=== PATIENT | male | born 1955 | race African-American/Black ===

== ENCOUNTER 2016-06-29 17:05 | Inpatient (IN) | payer MEDICARE, OTHER ==
[~2016-06-29] VITALS: Ht 188 cm; Wt 88.1 kg
[~2016-06-29 17:05] MED LIST: AMIT25TA PO; CYCL5TAB PO; DICY20TA3 PO; HYDR-971 PO; Ipratropium/Albuterol Sulfate NEB; METH10TA2 PO; MONT10TA6 PO; ONDA4TAB10 PO; ONDA4TAB7 PO; OXYC10TA32 PO; OXYC20TA34 PO; OXYC30TA PO; POLY17PO5 PO; PRED-220 PO; PREG225C PO; TEMA30CA PO; TIZA4CAP3 PO; TRAZ100T12 PO; TRAZ150T55 PO; trazodone PO
[2016-06-29] MEDS ORDERED: HYDROMORPHONE 2 MG/ML VIAL. IM ONE (19:45)
[2016-06-29] MEDS ORDERED: ORPHENADRINE CITRATE 60 MG/2 ML VIAL. IM ONE (19:45)
[2016-06-29] MEDS ORDERED: DIAZEPAM 10 MG/2 ML DISP.SYRIN. IV ONE (20:45)
[2016-06-29] MEDS ORDERED: OXYCODONE/APAP 5/325 TABLET. PO ONE (20:45)
[2016-06-29] MEDS ORDERED: ONDANSETRON PF 4 MG/2 ML VIAL. IV PRN (20:45)
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
--- NOTE | 2016-06-29 21:52 | ACF ---
Admission Forms Criteria BACK PAIN Clinical Indications for Admission to Inpatient Care (Place 'X' for any and all applicable criteria): Admission is indicated for ANY ONE of the following (1)(2)(3)(4)(5)(6): [X]I. Inpatient admission required rather than observation care (Also use Back Pain: Observation Care as appropriate) because of ANY ONE of the following [X]a) Severe pain requiring acute inpatient management [ ]b) Immediate inpatient surgery [ ]c) Other condition, treatment or monitoring requiring inpatient admission [ ]II. Spine fracture with significant damage or threat of damage to vertebral column or spinal cord [ ]III. Progressive or severe neurologic deficit [ ]IV. Suspected spinal infection (e.g., epidural abscess, vertebral osteomyelitis)(10) [ ]V. Suspected cause requires inpatient treatment (eg, aortic dissection) [ ]. Cauda equina syndrome as indicated by ANY ONE of the following (9): [ ]a) Bowel dysfunction [ ]b) Bladder dysfunction [ ]c) Saddle anesthesia [ ]d) Neurologic abnormality suggesting cauda equina impingement Extended stay beyond goal length of stay may be needed for (3)(25): [ ]a) Spinal cord compression from stenosis, disk, or tumor (8)(9) [ ]b) Traumatic or pathologic vertebral fracture (33) [ ]c) Vertebral infection(10) [ ]d) Severe pain that is difficult to control [ ]e) Older patients(65 years or older) The original [employer] content created by [employer] has been revised. The portions of the content which have been revised are identified through the use of italic text or in bold, and [employer] has neither reviewed nor approved the modified material. All other unmodified content is copyright [employer]. Please see references footnoted in the original [facility] edition 2016 Admission Criteria Met?: Yes YAMILEX CISNEROS Jun 29, 2016 21:52
[2016-06-29 22:34] VITALS: BP 126/85
[2016-06-29 22:35] VITALS: BP 126/85
[2016-06-29] MEDS: IV NORMAL SALINE 1000ML BAG 1,000 ML IV SCH (23:27)
[2016-06-29] MEDS: FENTANYL PF 100 MCG/2 ML VIAL. IV PRN (23:29)
[2016-06-30] MEDS: FENTANYL PF 100 MCG/2 ML VIAL. IV PRN ×7 (01:01→16:40)
[2016-06-30 02:44] VITALS: BP 112/68
[2016-06-30] MEDS: IV NORMAL SALINE 1000ML BAG 1,000 ML IV SCH ×3 (06:07→16:44)
[2016-06-30 07:00] VITALS: BP 125/77
[2016-06-30 07:04] LABS: BASO % 1 % (0-3); EOS % 2 % (0-3); HEMATOCRIT 39.8 % (39.0-53.0); HEMOGLOBIN 13.1 g/dL (13.0-17.5); LYMPH # 1.7 x10^3/uL (1.0-4.8); LYMPH % 21 % (24-48); MEAN CORPUSCULAR HEMOGLOBIN 34 pg (25-35); MEAN CORPUSCULAR HGB CONC 33 g/dL (31-37); MEAN CORPUSCULAR VOLUME 105 fL (79-100); MONO % 9 % (0-9); NEUT % 68 % (31-73); PLATELET COUNT 202 x10^3/uL (140-400); RED CELL DISTRIBUTION WIDTH 15.8 % (11.5-14.5); WHITE BLOOD COUNT 8.2 x10^3/uL (4.0-11.0)
[2016-06-30 07:31] LABS: ALBUMIN 2.7 g/dL (3.4-5.0); ALBUMIN/GLOBULIN RATIO 0.9 (1.0-1.7); CALCIUM 8.3 mg/dL (8.5-10.1); CREATININE 0.8 mg/dL (0.7-1.3); GFR 119.7; POTASSIUM 3.6 mmol/L (3.5-5.1); TOTAL BILIRUBIN 0.4 mg/dL (0.2-1.0); TOTAL PROTEIN 5.8 g/dL (6.4-8.2)
--- NOTE | 2016-06-30 09:03 | RAD ---
Indication: Lifting injury, low back pain and pop. Pain worse with standing. Previous fractures. Technique: 3 views of the lumbosacral spine are submitted for review. Comparison is from March 24, 2016. Findings: New compression deformity is noted at T12, collapse anteriorly of 33% and posteriorly of 25%. There is no definite retropulsion. There may be an acute component. L1 vertebral body height is maintained. L2 fracture was present on prior study. There is an L3 compression deformity involving the superior endplate, probably new from March although without definite acute fracture line identified. L4 compression fracture is similar to prior. L5 vertebral body height is similar to prior. No malalignment is apparent. Impression: 1. New compression deformity at T12 and age-indeterminate compression deformity at L3 which also is probably new from prior exam. Consider MRI lumbar spine to include through T12 to evaluate for acuity.
[2016-06-30 10:42] VITALS: BP 122/78
--- NOTE | 2016-06-30 13:09 | RAD ---
CT of the lumbar spine without contrast, 06/30/2016: History: Back pain Noncontrast scans were obtained with multiplanar reconstructions produced. This exam is correlated with lumbar spine radiographs from 06/29/2016 and 03/24/2016. There is a transitional-type vertebra at the lumbosacral junction. For consistency in regards to the previous lumbar radiographs, this no be considered to be L5. Utilizing this numbering system there are absent ribs at T12. There is a mild anterior vertebral compression deformity at T12. Recent appearing fracture lines are seen. There are moderate degenerative changes involving the facet joints bilaterally at T11-12, incompletely delineated on these images. There is a superior endplate deformity at L3 which is new when compared to lumbar spine radiographs from 03/24/2016. Biconcave endplate deformities at L2 and moderate loss of height of the L4 vertebral body appear to be unchanged since 03/24/2016. Mild loss of height of the L5 vertebral body also appears to be chronic. At L1-2 there is minimal posterior annular bulging. The central spinal canal is well-preserved with only mild bilateral inferior foraminal narrowing. At L2-3 there is mild posterior disc bulging. There is mild posterior ligamentous thickening. The thecal sac measures 8mm in AP diameter at the midline. There is mild bilateral foraminal narrowing. At L3-4 there is moderate broad-based posterior disc bulging. There is moderate posterior ligamentous thickening related to mild facet joint arthropathy. The thecal sac narrows down to an AP diameter 7 mm at the midline. There is mild bilateral foraminal narrowing. At L4-5 there is mild posterior disc bulging. There is moderate posterior ligamentous thickening. There is borderline narrowing of the central spinal canal in a triangular configuration. There is mild inferior foraminal narrowing bilaterally. At L5-S1 there is minimal posterior annular bulging. There are moderate hypertrophic degenerative changes involving the facet joints. The central spinal canal is well-preserved. There is mild to moderate foraminal encroachment due to the spurring. IMPRESSION: 1. Multiple mild lumbar and lower thoracic vertebral compression fractures without extension of fracture fragments into the spinal canal. 2. The T12 and L3 vertebral compression fractures are recent, having developed since 03/24/2016. 3. Mild to moderate multilevel degenerative change as described above with mild associated central spinal stenosis at L2-3 and L3-4. PQRS Compliance Statement: One or more of the following individualized dose reduction techniques were utilized for this examination: 1. Automated exposure control 2. Adjustment of the mA and/or kV according to patient size 3. Use of iterative reconstruction technique
[2016-06-30] MEDS ORDERED: ONDANSETRON ODT 4 MG TAB.RAPDIS PO PRN (13:30)
[2016-06-30] MEDS: METHADONE 10 MG TABLET. PO SCH ×2 (14:25→20:55)
[2016-06-30] MEDS: DICYCLOMINE HCL 10 MG CAPSULE PO SCH ×2 (14:25→20:56)
[2016-06-30] MEDS: HYDROCODONE/APAP 5/325MG TABLET. PO PRN ×2 (14:26→21:01)
[2016-06-30 14:43] VITALS: BP 131/77
[2016-06-30] MEDS: IPRATRPIUM/ALBUTEROL 0.5/2.5MG 3 ML NEBU. NEB SCH ×2 (15:17→20:19)
[2016-06-30] MEDS: CYCLOBENZAPRINE 10 MG TABLET. PO PRN (16:40)
--- NOTE | 2016-06-30 17:24 | HP ---
ADMIT DATE: 06/30/2016 CHIEF COMPLAINT: Back pain. HISTORY OF PRESENT ILLNESS: The patient is a pleasant middle-aged male who has previous back injuries. He states he even had surgery by Dr. Osorio years ago, presents with back pain, while he was working, heard a pop. Imaging studies in the ER are showing multiple compression fractures. He has now been admitted. We are consulting Dr. Osorio. PAST MEDICAL HISTORY: Back surgeries and lumbar radiculopathy, chronic pain. ALLERGIES: ASPIRIN, MESALAMINE, AMBIEN AND BUDESONIDE. FAMILY HISTORY: Coronary artery disease. SOCIAL HISTORY: He works. He does not drink, smoke or take drugs. MEDICATIONS: Reviewed, please refer to the MRAD. REVIEW OF SYSTEMS: GENERAL: No history of weight change, weakness or fevers. SKIN: No bruising, hair changes or rashes. EYES: No blurred, double or loss of vision. NOSE AND THROAT: No history of nosebleeds, hoarseness or sore throat. HEART: No history of palpitations, chest pain or shortness of breath on exertion. LUNGS: Denies cough, hemoptysis, wheezing or shortness of breath. GASTROINTESTINAL: Denies changes in appetite, nausea, vomiting, diarrhea or constipation. GENITOURINARY: No history of frequency, urgency, hesitancy or nocturia. NEUROLOGIC: Denies history of numbness, tingling, tremor or weakness. PSYCHIATRIC: No history of panic, anxiety or depression. ENDOCRINE: No history of heat or cold intolerance, polyuria or polydipsia. EXTREMITIES: Denies muscle weakness, joint pain, pain on walking or stiffness. MUSCULOSKELETAL: He complains of back pain. PHYSICAL EXAMINATION: VITAL SIGNS: Temperature afebrile, pulse 67, respirations 20, blood pressure 122/78. GENERAL: He is alert, cooperative. HEART: Normal S1, S2. LUNGS: Clear. ABDOMEN: Soft. EXTREMITIES: No edema. SKIN: No rashes. PSYCHIATRIC: He is stable. VASCULAR: Good capillary refill. ENDOCRINE: No thyromegaly. LYMPHATICS: No cervical nodes. HEMATOPOIETIC: No bruising. NEUROLOGICAL: He has got straight leg test positive on the left, but is overall moving all extremities. ASSESSMENT AND PLAN: Compression fractures, acute on chronic. The patient has been admitted. We will give him p.r.n. narcotics. Continue his home meds, IV fluids. Consult Dr. Osorio. PT, OT. Repeat his labs. NISHANT BURGESS DO DR: BRENDA/dennis JOB#: [id number] / [id number]
[2016-06-30 19:00] VITALS: BP 134/75
[2016-06-30 22:42] VITALS: BP 121/59
[2016-06-30] MEDS: TEMAZEPAM 15 MG CAPSULE PO PRN (23:09)
[2016-07-01 02:39] VITALS: BP 136/81
[2016-07-01] MEDS: CYCLOBENZAPRINE 10 MG TABLET. PO PRN ×2 (03:03→11:26)
[2016-07-01] MEDS: HYDROCODONE/APAP 5/325MG TABLET. PO PRN ×2 (03:04→11:26)
[2016-07-01] MEDS: OXYCODONE IR 5 MG TABLET. PO PRN ×4 (03:42→23:33)
[2016-07-01 04:52] LABS: BASO # 0.1 x10^3/uL (0.0-0.2); BASO % 1 % (0-3); EOS % 2 % (0-3); HEMATOCRIT 40.9 % (39.0-53.0); HEMOGLOBIN 13.3 g/dL (13.0-17.5); LYMPH # 2.1 x10^3/uL (1.0-4.8); LYMPH % 24 % (24-48); MEAN CORPUSCULAR HEMOGLOBIN 34 pg (25-35); MEAN CORPUSCULAR HGB CONC 33 g/dL (31-37); MEAN CORPUSCULAR VOLUME 105 fL (79-100); MONO % 8 % (0-9); NEUT % 66 % (31-73); PLATELET COUNT 185 x10^3/uL (140-400); RED BLOOD COUNT 3.91 x10^6/uL (4.30-5.70); RED CELL DISTRIBUTION WIDTH 15.7 % (11.5-14.5); WHITE BLOOD COUNT 8.8 x10^3/uL (4.0-11.0)
[2016-07-01 05:17] LABS: CALCIUM 8.5 mg/dL (8.5-10.1); CREATININE 0.6 mg/dL (0.7-1.3); GFR 166.9; POTASSIUM 3.8 mmol/L (3.5-5.1)
[2016-07-01] MEDS: FENTANYL PF 100 MCG/2 ML VIAL. IV PRN ×3 (05:58→19:41)
[2016-07-01 07:00] VITALS: BP 141/64
[2016-07-01] MEDS: IPRATRPIUM/ALBUTEROL 0.5/2.5MG 3 ML NEBU. NEB SCH ×4 (07:49→20:34)
[2016-07-01] MEDS: DICYCLOMINE HCL 10 MG CAPSULE PO SCH ×3 (08:03→21:20)
[2016-07-01] MEDS: METHADONE 10 MG TABLET. PO SCH ×2 (08:04→14:59)
--- NOTE | 2016-07-01 10:29 | PDOC ---
PROGRESS NOTES Chief Complaint Chief Complaint Thoracic and Lumbar compression fractures History of Present Illness History of Present Illness No acute events overnight. Patient was able to stand and shower, he does report pain with standing. He continues to report numbness of his right toes. Sensation to LE is otherwise intact. Vitals Vitals Vital Signs Date Time Temp Pulse Resp B/P Pulse Ox O2 Delivery O2 Flow Rate FiO2 07/01/16 09:20 16 Room Air 07/01/16 07:49 96 07/01/16 07:00 99.4 56 141/64 99.4 Physical Exam General: Alert, Cooperative, No acute distress Heart: Regular rate, Normal S1, Normal S2 Lungs: Clear, Other (no wheezing) Abdomen: Soft, No tenderness Extremities: No cyanosis, No edema, Normal pulses, Other (Equal sensation and muscular strength of bilateral LE ) Skin: No breakdown, No significant lesion Labs LABS Laboratory Tests Test 07/01/16 04:32 White Blood Count 8.8x10^3/uL (4.0-11.0) Red Blood Count 3.91x10^6/uL (4.30-5.70) Hemoglobin 13.3g/dL (13.0-17.5) Hematocrit 40.9% (39.0-53.0) Mean Corpuscular Volume 105fL (79-100) Mean Corpuscular Hemoglobin 34pg (25-35) Mean Corpuscular Hemoglobin Concent 33g/dL (31-37) Red Cell Distribution Width 15.7% (11.5-14.5) Platelet Count 185x10^3/uL (140-400) Neutrophils (%) (Auto) 66% (31-73) Lymphocytes (%) (Auto) 24% (24-48) Monocytes (%) (Auto) 8% (0-9) Eosinophils (%) (Auto) 2% (0-3) Basophils (%) (Auto) 1% (0-3) Neutrophils # (Auto) 5.9x10^3uL (1.8-7.7) Lymphocytes # (Auto) 2.1x10^3/uL (1.0-4.8) Monocytes # (Auto) 0.7x10^3/uL (0.0-1.1) Eosinophils # (Auto) 0.1x10^3/uL (0.0-0.7) Basophils # (Auto) 0.1x10^3/uL (0.0-0.2) Sodium Level 141mmol/L (136-145) Potassium Level 3.8mmol/L (3.5-5.1) Chloride Level 106mmol/L (98-107) Carbon Dioxide Level 26mmol/L (21-32) Anion Gap 9 (6-14) Blood Urea Nitrogen 8mg/dL (8-26) Creatinine 0.6mg/dL (0.7-1.3) Estimated GFR (Cockcroft-Gault) 166.9 Glucose Level 110mg/dL (70-99) Calcium Level 8.5mg/dL (8.5-10.1) Review of Systems Review of Systems Denies chest pain and shortness of breath. Denies fever or chills. Back pain while standing. Reports numbness of right toes. Assessment and Plan Assessmemt and Plan Problems Medical Problems: (1) Intractable back pain Status: Acute ASSESSMENT: Acute on chronic thoracic and lumbar compression fractures COPD History of prostate cancer Anxiety PLAN: Awaiting neurosurgery evaluation Continue pain control Continue neuro checks to LE Neurosurgery has been consulted, their recommendations are appreciated PT/OT eval and treat Continue to monitor daily labs Problems: Comment Review of Relevant I have reviewed the following items jet (where applicable) has been applied. Labs Laboratory Tests Test 06/30/16 06:20 07/01/16 04:32 White Blood Count 8.2x10^3/uL (4.0-11.0) 8.8x10^3/uL (4.0-11.0) Red Blood Count 3.80x10^6/uL (4.30-5.70) 3.91x10^6/uL (4.30-5.70) Hemoglobin 13.1g/dL (13.0-17.5) 13.3g/dL (13.0-17.5) Hematocrit 39.8% (39.0-53.0) 40.9% (39.0-53.0) Mean Corpuscular Volume 105fL (79-100) 105fL (79-100) Mean Corpuscular Hemoglobin 34pg (25-35) 34pg (25-35) Mean Corpuscular Hemoglobin Concent 33g/dL (31-37) 33g/dL (31-37) Red Cell Distribution Width 15.8% (11.5-14.5) 15.7% (11.5-14.5) Platelet Count 202x10^3/uL (140-400) 185x10^3/uL (140-400) Neutrophils (%) (Auto) 68% (31-73) 66% (31-73) Lymphocytes (%) (Auto) 21% (24-48) 24% (24-48) Monocytes (%) (Auto) 9% (0-9) 8% (0-9) Eosinophils (%) (Auto) 2% (0-3) 2% (0-3) Basophils (%) (Auto) 1% (0-3) 1% (0-3) Neutrophils # (Auto) 5.5x10^3uL (1.8-7.7) 5.9x10^3uL (1.8-7.7) Lymphocytes # (Auto) 1.7x10^3/uL (1.0-4.8) 2.1x10^3/uL (1.0-4.8) Monocytes # (Auto) 0.8x10^3/uL (0.0-1.1) 0.7x10^3/uL (0.0-1.1) Eosinophils # (Auto) 0.1x10^3/uL (0.0-0.7) 0.1x10^3/uL (0.0-0.7) Basophils # (Auto) 0.0x10^3/uL (0.0-0.2) 0.1x10^3/uL (0.0-0.2) Sodium Level 143mmol/L (136-145) 141mmol/L (136-145) Potassium Level 3.6mmol/L (3.5-5.1) 3.8mmol/L (3.5-5.1) Chloride Level 108mmol/L (98-107) 106mmol/L (98-107) Carbon Dioxide Level 26mmol/L (21-32) 26mmol/L (21-32) Anion Gap 9 (6-14) 9 (6-14) Blood Urea Nitrogen 12mg/dL (8-26) 8mg/dL (8-26) Creatinine 0.8mg/dL (0.7-1.3) 0.6mg/dL (0.7-1.3) Estimated GFR (Cockcroft-Gault) 119.7 166.9 BUN/Creatinine Ratio 15 (6-20) Glucose Level 118mg/dL (70-99) 110mg/dL (70-99) Calcium Level 8.3mg/dL (8.5-10.1) 8.5mg/dL (8.5-10.1) Total Bilirubin 0.4mg/dL (0.2-1.0) Aspartate Amino Transf (AST/SGOT) 17U/L (15-37) Alanine Aminotransferase (ALT/SGPT) 21U/L (16-63) Alkaline Phosphatase 60U/L (46-116) Total Protein 5.8g/dL (6.4-8.2) Albumin 2.7g/dL (3.4-5.0) Albumin/Globulin Ratio 0.9 (1.0-1.7) Laboratory Tests Test 07/01/16 04:32 White Blood Count 8.8x10^3/uL (4.0-11.0) Red Blood Count 3.91x10^6/uL (4.30-5.70) Hemoglobin 13.3g/dL (13.0-17.5) Hematocrit 40.9% (39.0-53.0) Mean Corpuscular Volume 105fL (79-100) Mean Corpuscular Hemoglobin 34pg (25-35) Mean Corpuscular Hemoglobin Concent 33g/dL (31-37) Red Cell Distribution Width 15.7% (11.5-14.5) Platelet Count 185x10^3/uL (140-400) Neutrophils (%) (Auto) 66% (31-73) Lymphocytes (%) (Auto) 24% (24-48) Monocytes (%) (Auto) 8% (0-9) Eosinophils (%) (Auto) 2% (0-3) Basophils (%) (Auto) 1% (0-3) Neutrophils # (Auto) 5.9x10^3uL (1.8-7.7) Lymphocytes # (Auto) 2.1x10^3/uL (1.0-4.8) Monocytes # (Auto) 0.7x10^3/uL (0.0-1.1) Eosinophils # (Auto) 0.1x10^3/uL (0.0-0.7) Basophils # (Auto) 0.1x10^3/uL (0.0-0.2) Sodium Level 141mmol/L (136-145) Potassium Level 3.8mmol/L (3.5-5.1) Chloride Level 106mmol/L (98-107) Carbon Dioxide Level 26mmol/L (21-32) Anion Gap 9 (6-14) Blood Urea Nitrogen 8mg/dL (8-26) Creatinine 0.6mg/dL (0.7-1.3) Estimated GFR (Cockcroft-Gault) 166.9 Glucose Level 110mg/dL (70-99) Calcium Level 8.5mg/dL (8.5-10.1) Medications Current Medications Hydromorphone HCl (Dilaudid) 1 mg 1X ONCE IM Last administered on 06/29/16 19 :44; Start 06/29/16 at 19:45; Stop 06/29/16 at 19:46; Status DC Orphenadrine Citrate (Norflex) 60 mg 1X ONCE IM Last administered on 19:44; Start 06/29/16 at 19:45; Stop 06/29/16 at 19:46; Status DC Oxycodone/ Acetaminophen (Percocet 5/325) 2 tab 1X ONCE PO Last administered on 06/29/16 21:15; Start 06/29/16 at 20:45; Stop 06/29/16 at 20:46; Status DC Ondansetron HCl (Zofran) 4 mg PRN Q8HRS PRN IV NAUSEA/VOMITING Last administered on 06/29/16 21:14; Start 06/29/16 at 20:45; Stop 06/30/16 at 20:44 ; Status DC Fentanyl Citrate 50 mcg 50 mcg PRN Q1HR PRN IV PAIN Last administered on 16:40; Start 06/29/16 at 20:45; Stop 06/30/16 at 20:44; Status DC Sodium Chloride (Iv Sodium Chloride 0.9% 1000ml Bag) 1,000 ml @ 150 mls/hr Q6H40M IV Last administered on 06/30/16 16:44; Start 06/29/16 at 20:42; Stop 06/30/16 at 20:41; Status DC Diazepam (Valium) 5 mg 1X ONCE IV Last administered on 06/29/16 21:15; Start 06/29/16 at 20:45; Stop 06/29/16 at 20:47; Status DC Acetaminophen/ Hydrocodone Bitart (Lortab 5/325) 1 tab PRN Q6HRS PRN PO PAIN Last administered on 07/01/16 03:04; Start 06/30/16 at 13:30 Methadone HCl (Dolophine) 10 mg TID PO Last administered on 07/01/16 08:04; Start 06/30/16 at 14:00 Ondansetron HCl (Zofran Odt) 4 mg PRN Q8HRS PRN PO NAUSEA/VOMITING; Start 06/30 at 13:30 Oxycodone HCl (Roxicodone) 10 mg PRN Q8HRS PRN PO PAIN Last administered on 09:20; Start 06/30/16 at 13:30 Cyclobenzaprine HCl (Flexeril) 5 mg PRN TID PRN PO MUSCLE SPASMS Last administered on 07/01/16 03:03; Start 06/30/16 at 13:30 Dicyclomine HCl (Bentyl) 20 mg TID PO Last administered on 07/01/16 08:03; Start 06/30/16 at 14:00 Albuterol/ Ipratropium (Duoneb) 3 ml RTQID NEB Last administered on 07/01/16 07:49; Start 06/30/16 at 16:00 Temazepam (Restoril) 15 mg PRN QHS PRN PO INSOMNIA Last administered on 23:09; Start 06/30/16 at 23:00 Fentanyl Citrate (Fentanyl 2ml Vial) 50 mcg PRN Q1HR PRN IV SEVERE PAIN Last administered on 07/01/16 08:04; Start 07/01/16 at 05:45 Active Scripts Active Cyclobenzaprine Hcl 5 Mg Tablet 1 Tab PO TID PRN Timewell 5-325 Tablet (Acetaminophen/Hydrocodone Bitart) 1 Each Tablet 1 Tab PO PRN Q6HRS PRN [Ipratropium/Albuterol Sulfate] 3 ML Nebu 3 Ml NEB RTQID Reported Methadone Hcl 10 Mg Tablet 10 Mg PO TID Zofran Odt (Ondansetron) 4 Mg Tab.rapdis 4 Mg PO PRN Q8HRS PRN Dicyclomine Hcl 20 Mg Tablet 20 Mg PO TID Oxycodone Hcl 30 Mg Tablet 10 Mg PO PRN Q8HRS Vitals/I & O Vital Sign - Last 24 Hours 06/30/16 06/30/16 06/30/16 06/30/16 10:42 11:32 14:26 14:43 Temp 98.0 97.9 98.0 97.9 Pulse 76 77 Resp 20 20 B/P 122/78 131/77 Pulse Ox 97 97 97 99 O2 Delivery Room Air Room Air Room Air Room Air 06/30/16 06/30/16 06/30/16 06/30/16 15:21 15:26 16:40 17:11 Pulse Ox 98 98 98 98 O2 Delivery Room Air Room Air Room Air 06/30/16 06/30/16 06/30/16 06/30/16 19:00 20:23 20:30 21:01 Temp 97.5 97.5 Pulse 75 Resp 18 20 B/P 134/75 Pulse Ox 98 98 94 O2 Delivery Room Air Room Air Room Air Room Air 06/30/16 06/30/16 07/01/16 07/01/16 22:30 22:42 02:39 03:04 Temp 98.5 97.9 98.5 97.9 Pulse 81 77 Resp 20 18 18 20 B/P 121/59 136/81 Pulse Ox 98 98 94 O2 Delivery Room Air Room Air Room Air Room Air 07/01/16 07/01/16 07/01/16 07/01/16 03:42 04:30 05:58 07:00 Temp 99.4 99.4 Pulse 56 Resp 20 20 20 16 B/P 141/64 Pulse Ox 94 94 95 O2 Delivery Room Air Room Air Room Air 07/01/16 07/01/16 07/01/16 07/01/16 07:49 08:00 08:04 08:34 Resp 16 16 Pulse Ox 96 O2 Delivery Room Air Room Air Room Air Room Air 07/01/16 09:20 Resp 16 O2 Delivery Room Air Intake and Output 06/30/16 06/30/16 07/01/16 15:00 23:00 07:00 Intake Total 400 ml 180 ml 1100 ml Output Total 650 ml 250 ml 600 ml Balance -250 ml -70 ml 500 ml NISHANT BURGESS III DO Jul 01, 2016 10:29
[2016-07-01 10:51] VITALS: BP 134/80
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
[2016-07-01 15:01] VITALS: BP 141/80
--- NOTE | 2016-07-01 15:22 | PDOC ---
Provider Note Provider Note IR Note: Asked by Dr Hilliard to consider vertebral augmentation---thank you Edwin is 60 YO male admitted with severe LBP, associated with minor exertion and an audible pop. He has severe pain standing and is unable to ambulate due to pain. He has no symptoms of myelopathy. He is tender to palpation over upper and mid L-spine Imaging: [facility] CT L-spine done yesterday revealed interval appearance of T12 and L3 fractures, when compared to [facility] L-spine X-rays from 03/24/16. An additional L2 fracture was present on [facility] L-spine X-rays from 01/03/15. No significant bony retropulsion was demonstrated at any fracture level. MRI considered contraindicated per Neurosurgery and Neuroradiology, due to circular orientation of metallic C-spine post-op changes, with possibility of current induction. By history, symptoms, and interval imaging, I would consider Mr Sheriff a reasonable candidate for T12 and L3 kyphoplasty. Will tentatively place him on my IR schedule tomorrow, and will proceed if OK with HIMS and Neurosurgery. Will check coags. NPO post LATONYA delacruz. TRELL HERNANDEZ MD Jul 01, 2016 15:22
[2016-07-01] MEDS ORDERED: BISACODYL 5 MG TABLET.DR. PO PRN (18:00)
[2016-07-01] MEDS ORDERED: MAGNESIUM HYDROXIDE 2,400 MG/30 ML ORAL.SUSP. PO PRN (18:00)
[2016-07-01 19:00] VITALS: BP 128/80
[2016-07-01] MEDS: CYCLOBENZAPRINE 10 MG TABLET. PO SCH (21:20)
[2016-07-01] MEDS: OXYCODONE ER 15 MG TAB.ER.12H. PO SCH (21:20)
[2016-07-01] MEDS: TEMAZEPAM 15 MG CAPSULE PO PRN (21:21)
[2016-07-01 23:00] VITALS: BP 141/86
[2016-07-02] VITALS (12 sets, daily range): BP systolic 98–145; BP diastolic 74–88
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
[2016-07-02] MEDS: FENTANYL PF 100 MCG/2 ML VIAL. IV PRN ×2 (04:37→09:37)
[2016-07-02 06:54] LABS: BASO # 0.1 x10^3/uL (0.0-0.2); BASO % 1 % (0-3); EOS % 2 % (0-3); HEMOGLOBIN 14.1 g/dL (13.0-17.5); LYMPH # 1.7 x10^3/uL (1.0-4.8); LYMPH % 22 % (24-48); MEAN CORPUSCULAR HEMOGLOBIN 35 pg (25-35); MEAN CORPUSCULAR HGB CONC 33 g/dL (31-37); MEAN CORPUSCULAR VOLUME 104 fL (79-100); MONO % 8 % (0-9); NEUT % 68 % (31-73); PLATELET COUNT 200 x10^3/uL (140-400); RED BLOOD COUNT 4.04 x10^6/uL (4.30-5.70); RED CELL DISTRIBUTION WIDTH 15.4 % (11.5-14.5); WHITE BLOOD COUNT 7.6 x10^3/uL (4.0-11.0)
[2016-07-02 07:05] LABS: CALCIUM 8.8 mg/dL (8.5-10.1); CREATININE 0.7 mg/dL (0.7-1.3); GFR 139.7; POTASSIUM 3.4 mmol/L (3.5-5.1)
[2016-07-02 07:14] LABS: PROTHROMBIN TIME PATIENT 12.2 SEC (11.7-14.0)
[2016-07-02] MEDS: IPRATRPIUM/ALBUTEROL 0.5/2.5MG 3 ML NEBU. NEB SCH ×4 (07:43→19:46)
[2016-07-02] MEDS: DICYCLOMINE HCL 10 MG CAPSULE PO SCH ×3 (08:16→21:21)
[2016-07-02] MEDS: CYCLOBENZAPRINE 10 MG TABLET. PO SCH ×3 (08:17→21:21)
[2016-07-02] MEDS: OXYCODONE ER 15 MG TAB.ER.12H. PO SCH ×2 (08:17→19:42)
[2016-07-02] MEDS: OXYCODONE IR 5 MG TABLET. PO PRN ×2 (08:17→21:23)
--- NOTE | 2016-07-02 08:20 | PDOC ---
PROGRESS NOTES Chief Complaint Chief Complaint Thoracic and Lumbar compression fractures History of Present Illness History of Present Illness No acute events overnight. Patient was seen by IR and neurosurgery. Plan for Kyphoplasty of T12 and L3 today. He continue to report back pain. He is otherwise doing well. Vitals Vitals Vital Signs Date Time Temp Pulse Resp B/P Pulse Ox O2 Delivery O2 Flow Rate FiO2 07/02/16 08:17 Room Air 07/02/16 07:45 97 07/02/16 07:00 97.7 85 18 141/84 97.7 Physical Exam General: Alert, Oriented X3, Cooperative, No acute distress Heart: Regular rate, No murmurs Lungs: Clear Abdomen: Normal bowel sounds, Soft, No tenderness Extremities: No cyanosis, No edema, Normal pulses, Other (Equal sensation and muscular strength of bilateral LE ) Skin: No breakdown, No significant lesion Labs LABS Laboratory Tests Test 07/02/16 06:24 White Blood Count 7.6x10^3/uL (4.0-11.0) Red Blood Count 4.04x10^6/uL (4.30-5.70) Hemoglobin 14.1g/dL (13.0-17.5) Hematocrit 42.0% (39.0-53.0) Mean Corpuscular Volume 104fL (79-100) Mean Corpuscular Hemoglobin 35pg (25-35) Mean Corpuscular Hemoglobin Concent 33g/dL (31-37) Red Cell Distribution Width 15.4% (11.5-14.5) Platelet Count 200x10^3/uL (140-400) Neutrophils (%) (Auto) 68% (31-73) Lymphocytes (%) (Auto) 22% (24-48) Monocytes (%) (Auto) 8% (0-9) Eosinophils (%) (Auto) 2% (0-3) Basophils (%) (Auto) 1% (0-3) Neutrophils # (Auto) 5.1x10^3uL (1.8-7.7) Lymphocytes # (Auto) 1.7x10^3/uL (1.0-4.8) Monocytes # (Auto) 0.6x10^3/uL (0.0-1.1) Eosinophils # (Auto) 0.1x10^3/uL (0.0-0.7) Basophils # (Auto) 0.1x10^3/uL (0.0-0.2) Prothrombin Time 12.2SEC (11.7-14.0) Prothromb Time International Ratio 1.0 (0.8-1.1) Sodium Level 137mmol/L (136-145) Potassium Level 3.4mmol/L (3.5-5.1) Chloride Level 102mmol/L (98-107) Carbon Dioxide Level 29mmol/L (21-32) Anion Gap 6 (6-14) Blood Urea Nitrogen 8mg/dL (8-26) Creatinine 0.7mg/dL (0.7-1.3) Estimated GFR (Cockcroft-Gault) 139.7 Glucose Level 105mg/dL (70-99) Calcium Level 8.8mg/dL (8.5-10.1) Review of Systems Review of Systems Denies chest pain and shortness of breath. Denies fever and chills. Reports back pain. Assessment and Plan Assessmemt and Plan Problems Medical Problems: (1) Intractable back pain Status: Acute ASSESSMENT: Acute on chronic thoracic and lumbar compression fractures COPD History of prostate cancer Anxiety PLAN: Replaced potassium with 40mEq PO Plan for IR kyphoplasty today Continue pain control Continue neuro checks to LE Neurosurgery and IR consulted, their recommendations are appreciated PT/OT eval and treat Continue to monitor daily labs Disposition: pending Problems: Comment Review of Relevant I have reviewed the following items jet (where applicable) has been applied. Labs Laboratory Tests Test 07/01/16 04:32 07/02/16 06:24 White Blood Count 8.8x10^3/uL (4.0-11.0) 7.6x10^3/uL (4.0-11.0) Red Blood Count 3.91x10^6/uL (4.30-5.70) 4.04x10^6/uL (4.30-5.70) Hemoglobin 13.3g/dL (13.0-17.5) 14.1g/dL (13.0-17.5) Hematocrit 40.9% (39.0-53.0) 42.0% (39.0-53.0) Mean Corpuscular Volume 105fL (79-100) 104fL (79-100) Mean Corpuscular Hemoglobin 34pg (25-35) 35pg (25-35) Mean Corpuscular Hemoglobin Concent 33g/dL (31-37) 33g/dL (31-37) Red Cell Distribution Width 15.7% (11.5-14.5) 15.4% (11.5-14.5) Platelet Count 185x10^3/uL (140-400) 200x10^3/uL (140-400) Neutrophils (%) (Auto) 66% (31-73) 68% (31-73) Lymphocytes (%) (Auto) 24% (24-48) 22% (24-48) Monocytes (%) (Auto) 8% (0-9) 8% (0-9) Eosinophils (%) (Auto) 2% (0-3) 2% (0-3) Basophils (%) (Auto) 1% (0-3) 1% (0-3) Neutrophils # (Auto) 5.9x10^3uL (1.8-7.7) 5.1x10^3uL (1.8-7.7) Lymphocytes # (Auto) 2.1x10^3/uL (1.0-4.8) 1.7x10^3/uL (1.0-4.8) Monocytes # (Auto) 0.7x10^3/uL (0.0-1.1) 0.6x10^3/uL (0.0-1.1) Eosinophils # (Auto) 0.1x10^3/uL (0.0-0.7) 0.1x10^3/uL (0.0-0.7) Basophils # (Auto) 0.1x10^3/uL (0.0-0.2) 0.1x10^3/uL (0.0-0.2) Sodium Level 141mmol/L (136-145) 137mmol/L (136-145) Potassium Level 3.8mmol/L (3.5-5.1) 3.4mmol/L (3.5-5.1) Chloride Level 106mmol/L (98-107) 102mmol/L (98-107) Carbon Dioxide Level 26mmol/L (21-32) 29mmol/L (21-32) Anion Gap 9 (6-14) 6 (6-14) Blood Urea Nitrogen 8mg/dL (8-26) 8mg/dL (8-26) Creatinine 0.6mg/dL (0.7-1.3) 0.7mg/dL (0.7-1.3) Estimated GFR (Cockcroft-Gault) 166.9 139.7 Glucose Level 110mg/dL (70-99) 105mg/dL (70-99) Calcium Level 8.5mg/dL (8.5-10.1) 8.8mg/dL (8.5-10.1) Prothrombin Time 12.2SEC (11.7-14.0) Prothromb Time International Ratio 1.0 (0.8-1.1) Laboratory Tests Test 07/02/16 06:24 White Blood Count 7.6x10^3/uL (4.0-11.0) Red Blood Count 4.04x10^6/uL (4.30-5.70) Hemoglobin 14.1g/dL (13.0-17.5) Hematocrit 42.0% (39.0-53.0) Mean Corpuscular Volume 104fL (79-100) Mean Corpuscular Hemoglobin 35pg (25-35) Mean Corpuscular Hemoglobin Concent 33g/dL (31-37) Red Cell Distribution Width 15.4% (11.5-14.5) Platelet Count 200x10^3/uL (140-400) Neutrophils (%) (Auto) 68% (31-73) Lymphocytes (%) (Auto) 22% (24-48) Monocytes (%) (Auto) 8% (0-9) Eosinophils (%) (Auto) 2% (0-3) Basophils (%) (Auto) 1% (0-3) Neutrophils # (Auto) 5.1x10^3uL (1.8-7.7) Lymphocytes # (Auto) 1.7x10^3/uL (1.0-4.8) Monocytes # (Auto) 0.6x10^3/uL (0.0-1.1) Eosinophils # (Auto) 0.1x10^3/uL (0.0-0.7) Basophils # (Auto) 0.1x10^3/uL (0.0-0.2) Prothrombin Time 12.2SEC (11.7-14.0) Prothromb Time International Ratio 1.0 (0.8-1.1) Sodium Level 137mmol/L (136-145) Potassium Level 3.4mmol/L (3.5-5.1) Chloride Level 102mmol/L (98-107) Carbon Dioxide Level 29mmol/L (21-32) Anion Gap 6 (6-14) Blood Urea Nitrogen 8mg/dL (8-26) Creatinine 0.7mg/dL (0.7-1.3) Estimated GFR (Cockcroft-Gault) 139.7 Glucose Level 105mg/dL (70-99) Calcium Level 8.8mg/dL (8.5-10.1) Medications Current Medications Hydromorphone HCl (Dilaudid) 1 mg 1X ONCE IM Last administered on 06/29/16 19 :44; Start 06/29/16 at 19:45; Stop 06/29/16 at 19:46; Status DC Orphenadrine Citrate (Norflex) 60 mg 1X ONCE IM Last administered on 19:44; Start 06/29/16 at 19:45; Stop 06/29/16 at 19:46; Status DC Oxycodone/ Acetaminophen (Percocet 5/325) 2 tab 1X ONCE PO Last administered on 06/29/16 21:15; Start 06/29/16 at 20:45; Stop 06/29/16 at 20:46; Status DC Ondansetron HCl (Zofran) 4 mg PRN Q8HRS PRN IV NAUSEA/VOMITING Last administered on 06/29/16 21:14; Start 06/29/16 at 20:45; Stop 06/30/16 at 20:44 ; Status DC Fentanyl Citrate 50 mcg 50 mcg PRN Q1HR PRN IV PAIN Last administered on 16:40; Start 06/29/16 at 20:45; Stop 06/30/16 at 20:44; Status DC Sodium Chloride (Iv Sodium Chloride 0.9% 1000ml Bag) 1,000 ml @ 150 mls/hr Q6H40M IV Last administered on 06/30/16 16:44; Start 06/29/16 at 20:42; Stop 06/30/16 at 20:41; Status DC Diazepam (Valium) 5 mg 1X ONCE IV Last administered on 06/29/16 21:15; Start 06/29/16 at 20:45; Stop 06/29/16 at 20:47; Status DC Acetaminophen/ Hydrocodone Bitart (Lortab 5/325) 1 tab PRN Q6HRS PRN PO PAIN Last administered on 07/01/16 11:26; Start 06/30/16 at 13:30; Stop 07/01/16 at 17:54; Status DC Methadone HCl (Dolophine) 10 mg TID PO Last administered on 07/01/16 14:59; Start 06/30/16 at 14:00; Stop 07/01/16 at 17:54; Status DC Ondansetron HCl (Zofran Odt) 4 mg PRN Q8HRS PRN PO NAUSEA/VOMITING; Start 06/30 at 13:30 Oxycodone HCl (Roxicodone) 10 mg PRN Q8HRS PRN PO PAIN Last administered on 08:17; Start 06/30/16 at 13:30 Cyclobenzaprine HCl (Flexeril) 5 mg PRN TID PRN PO MUSCLE SPASMS Last administered on 07/01/16 11:26; Start 06/30/16 at 13:30; Stop 07/01/16 at 22:00 ; Status DC Dicyclomine HCl (Bentyl) 20 mg TID PO Last administered on 07/02/16 08:16; Start 06/30/16 at 14:00 Albuterol/ Ipratropium (Duoneb) 3 ml RTQID NEB Last administered on 07/02/16 07:43; Start 06/30/16 at 16:00 Temazepam (Restoril) 15 mg PRN QHS PRN PO INSOMNIA Last administered on 21:21; Start 06/30/16 at 23:00 Fentanyl Citrate (Fentanyl 2ml Vial) 50 mcg PRN Q1HR PRN IV SEVERE PAIN Last administered on 07/02/16 04:37; Start 07/01/16 at 05:45 Cyclobenzaprine HCl (Flexeril) 10 mg Q8HRS PO Last administered on 07/02/16 08 :17; Start 07/01/16 at 22:00 Oxycodone HCl (Oxycontin) 15 mg Q12HR PO Last administered on 07/02/16 08:17; Start 07/01/16 at 21:00 Magnesium Hydroxide (Milk Of Magnesia) 2,400 mg PRN DAILY PRN PO CONSTIPATION; Start 07/01/16 at 18:00 Bisacodyl (Dulcolax Tab) 10 mg PRN DAILY PRN PO CONSTIPATION Last administered on 07/01/16 19:41; Start 07/01/16 at 18:00 Active Scripts Active Cyclobenzaprine Hcl 5 Mg Tablet 1 Tab PO TID PRN [place] 5-325 Tablet (Acetaminophen/Hydrocodone Bitart) 1 Each Tablet 1 Tab PO PRN Q6HRS PRN [Ipratropium/Albuterol Sulfate] 3 ML Nebu 3 Ml NEB RTQID Reported Methadone Hcl 10 Mg Tablet 10 Mg PO TID Zofran Odt (Ondansetron) 4 Mg Tab.rapdis 4 Mg PO PRN Q8HRS PRN Dicyclomine Hcl 20 Mg Tablet 20 Mg PO TID Oxycodone Hcl 30 Mg Tablet 10 Mg PO PRN Q8HRS Vitals/I & O Vital Sign - Last 24 Hours 07/01/16 07/01/16 07/01/16 07/01/16 08:34 09:20 10:20 10:51 Temp 98.0 98.0 Pulse 79 Resp 16 16 16 18 B/P 134/80 Pulse Ox 98 O2 Delivery Room Air Room Air Room Air Room Air 07/01/16 07/01/16 07/01/16 07/01/16 11:14 11:26 14:59 15:01 Temp 98.3 98.3 Pulse 79 Resp 16 16 18 B/P 141/80 Pulse Ox 97 94 O2 Delivery Room Air Room Air Room Air Room Air 07/01/16 07/01/16 07/01/16 07/01/16 15:34 19:00 19:41 20:34 Temp 99.0 99.0 Pulse 79 Resp 18 24 B/P 128/80 Pulse Ox 93 O2 Delivery Room Air Room Air Room Air Room Air 07/01/16 07/01/16 07/01/16 07/02/16 21:20 23:00 23:33 03:00 Temp 97.5 97.9 97.5 97.9 Pulse 85 80 Resp 20 18 20 18 B/P 141/86 125/78 Pulse Ox 98 98 O2 Delivery Room Air Room Air 07/02/16 07/02/16 07/02/16 07/02/16 07:00 07:45 08:17 08:17 Temp 97.7 97.7 Pulse 85 Resp 18 B/P 141/84 Pulse Ox 94 97 O2 Delivery Room Air Room Air Room Air Room Air Intake and Output 07/01/16 07/01/16 07/02/16 15:00 23:00 07:00 Intake Total 480 ml Output Total 0 ml Balance 480 ml 0 ml NISHANT BURGESS III DO Jul 02, 2016 08:19
[2016-07-02] MEDS ORDERED: LIDOCAINE 1% / SOD BICARB 8.4% 20 ML VIAL. IJ ONE ×4 (10:08→11:30)
[2016-07-02] MEDS ORDERED: IOHEXOL 300 MG/ML 50 ML VIAL. ONE (10:08)
[2016-07-02] MEDS ORDERED: MIDAZOLAM HCL/PF 5 MG/5 ML VIAL ONE (10:27)
[2016-07-02] MEDS ORDERED: FENTANYL PF 250 MCG/5 ML VIAL. ONE (10:27)
[2016-07-02] MEDS ORDERED: CEFAZOLIN 1GM IVPB FOR OMNI 50 ML IV ONE ×2 (10:27→11:30)
--- NOTE | 2016-07-02 10:27 | PDOC ---
PROGRESS NOTES Subjective Subjective He admits popping in his neck with movement. Objective Objective Vital Signs Date Time Temp Pulse Resp B/P Pulse Ox O2 Delivery O2 Flow Rate FiO2 07/02/16 09:37 Room Air 07/02/16 07:45 97 07/02/16 07:00 97.7 85 18 141/84 97.7 Intake and Output 07/02/16 07:00 Intake Total 480 ml Output Total 0 ml Balance 480 ml Intake Oral 480 ml Output Urine Total 0 ml # Voids 4 Physical Exam Physical Exam He had tenderness to palpation over cervical,thoracic and lumbar paraspinal and upper trapezius muscles and sacroiliac joints bilaterally and painfully limited ROM of cervical thoraco lumbar spine. Assessment Assessment Problems Medical Problems: (1) Intractable back pain Status: Acute Plan Plan of Care To see how he does with kyphoplasty and to ask Mgmt Consultant's to see him about proper back support brace. Comment Review of Relevant I have reviewed the following items jet (where applicable) has been applied. Labs Laboratory Tests Test 07/01/16 04:32 07/02/16 06:24 White Blood Count 8.8x10^3/uL (4.0-11.0) 7.6x10^3/uL (4.0-11.0) Red Blood Count 3.91x10^6/uL (4.30-5.70) 4.04x10^6/uL (4.30-5.70) Hemoglobin 13.3g/dL (13.0-17.5) 14.1g/dL (13.0-17.5) Hematocrit 40.9% (39.0-53.0) 42.0% (39.0-53.0) Mean Corpuscular Volume 105fL (79-100) 104fL (79-100) Mean Corpuscular Hemoglobin 34pg (25-35) 35pg (25-35) Mean Corpuscular Hemoglobin Concent 33g/dL (31-37) 33g/dL (31-37) Red Cell Distribution Width 15.7% (11.5-14.5) 15.4% (11.5-14.5) Platelet Count 185x10^3/uL (140-400) 200x10^3/uL (140-400) Neutrophils (%) (Auto) 66% (31-73) 68% (31-73) Lymphocytes (%) (Auto) 24% (24-48) 22% (24-48) Monocytes (%) (Auto) 8% (0-9) 8% (0-9) Eosinophils (%) (Auto) 2% (0-3) 2% (0-3) Basophils (%) (Auto) 1% (0-3) 1% (0-3) Neutrophils # (Auto) 5.9x10^3uL (1.8-7.7) 5.1x10^3uL (1.8-7.7) Lymphocytes # (Auto) 2.1x10^3/uL (1.0-4.8) 1.7x10^3/uL (1.0-4.8) Monocytes # (Auto) 0.7x10^3/uL (0.0-1.1) 0.6x10^3/uL (0.0-1.1) Eosinophils # (Auto) 0.1x10^3/uL (0.0-0.7) 0.1x10^3/uL (0.0-0.7) Basophils # (Auto) 0.1x10^3/uL (0.0-0.2) 0.1x10^3/uL (0.0-0.2) Sodium Level 141mmol/L (136-145) 137mmol/L (136-145) Potassium Level 3.8mmol/L (3.5-5.1) 3.4mmol/L (3.5-5.1) Chloride Level 106mmol/L (98-107) 102mmol/L (98-107) Carbon Dioxide Level 26mmol/L (21-32) 29mmol/L (21-32) Anion Gap 9 (6-14) 6 (6-14) Blood Urea Nitrogen 8mg/dL (8-26) 8mg/dL (8-26) Creatinine 0.6mg/dL (0.7-1.3) 0.7mg/dL (0.7-1.3) Estimated GFR (Cockcroft-Gault) 166.9 139.7 Glucose Level 110mg/dL (70-99) 105mg/dL (70-99) Calcium Level 8.5mg/dL (8.5-10.1) 8.8mg/dL (8.5-10.1) Prothrombin Time 12.2SEC (11.7-14.0) Prothromb Time International Ratio 1.0 (0.8-1.1) Laboratory Tests Test 07/02/16 06:24 White Blood Count 7.6x10^3/uL (4.0-11.0) Red Blood Count 4.04x10^6/uL (4.30-5.70) Hemoglobin 14.1g/dL (13.0-17.5) Hematocrit 42.0% (39.0-53.0) Mean Corpuscular Volume 104fL (79-100) Mean Corpuscular Hemoglobin 35pg (25-35) Mean Corpuscular Hemoglobin Concent 33g/dL (31-37) Red Cell Distribution Width 15.4% (11.5-14.5) Platelet Count 200x10^3/uL (140-400) Neutrophils (%) (Auto) 68% (31-73) Lymphocytes (%) (Auto) 22% (24-48) Monocytes (%) (Auto) 8% (0-9) Eosinophils (%) (Auto) 2% (0-3) Basophils (%) (Auto) 1% (0-3) Neutrophils # (Auto) 5.1x10^3uL (1.8-7.7) Lymphocytes # (Auto) 1.7x10^3/uL (1.0-4.8) Monocytes # (Auto) 0.6x10^3/uL (0.0-1.1) Eosinophils # (Auto) 0.1x10^3/uL (0.0-0.7) Basophils # (Auto) 0.1x10^3/uL (0.0-0.2) Prothrombin Time 12.2SEC (11.7-14.0) Prothromb Time International Ratio 1.0 (0.8-1.1) Sodium Level 137mmol/L (136-145) Potassium Level 3.4mmol/L (3.5-5.1) Chloride Level 102mmol/L (98-107) Carbon Dioxide Level 29mmol/L (21-32) Anion Gap 6 (6-14) Blood Urea Nitrogen 8mg/dL (8-26) Creatinine 0.7mg/dL (0.7-1.3) Estimated GFR (Cockcroft-Gault) 139.7 Glucose Level 105mg/dL (70-99) Calcium Level 8.8mg/dL (8.5-10.1) Medications Current Medications Hydromorphone HCl (Dilaudid) 1 mg 1X ONCE IM Last administered on 06/29/16 19 :44; Start 06/29/16 at 19:45; Stop 06/29/16 at 19:46; Status DC Orphenadrine Citrate (Norflex) 60 mg 1X ONCE IM Last administered on 19:44; Start 06/29/16 at 19:45; Stop 06/29/16 at 19:46; Status DC Oxycodone/ Acetaminophen (Percocet 5/325) 2 tab 1X ONCE PO Last administered on 06/29/16 21:15; Start 06/29/16 at 20:45; Stop 06/29/16 at 20:46; Status DC Ondansetron HCl (Zofran) 4 mg PRN Q8HRS PRN IV NAUSEA/VOMITING Last administered on 06/29/16 21:14; Start 06/29/16 at 20:45; Stop 06/30/16 at 20:44 ; Status DC Fentanyl Citrate 50 mcg 50 mcg PRN Q1HR PRN IV PAIN Last administered on 16:40; Start 06/29/16 at 20:45; Stop 06/30/16 at 20:44; Status DC Sodium Chloride (Iv Sodium Chloride 0.9% 1000ml Bag) 1,000 ml @ 150 mls/hr Q6H40M IV Last administered on 06/30/16 16:44; Start 06/29/16 at 20:42; Stop 06/30/16 at 20:41; Status DC Diazepam (Valium) 5 mg 1X ONCE IV Last administered on 06/29/16 21:15; Start 06/29/16 at 20:45; Stop 06/29/16 at 20:47; Status DC Acetaminophen/ Hydrocodone Bitart (Lortab 5/325) 1 tab PRN Q6HRS PRN PO PAIN Last administered on 07/01/16 11:26; Start 06/30/16 at 13:30; Stop 07/01/16 at 17:54; Status DC Methadone HCl (Dolophine) 10 mg TID PO Last administered on 07/01/16 14:59; Start 06/30/16 at 14:00; Stop 07/01/16 at 17:54; Status DC Ondansetron HCl (Zofran Odt) 4 mg PRN Q8HRS PRN PO NAUSEA/VOMITING; Start 06/30 at 13:30 Oxycodone HCl (Roxicodone) 10 mg PRN Q8HRS PRN PO PAIN Last administered on 08:17; Start 06/30/16 at 13:30 Cyclobenzaprine HCl (Flexeril) 5 mg PRN TID PRN PO MUSCLE SPASMS Last administered on 07/01/16 11:26; Start 06/30/16 at 13:30; Stop 07/01/16 at 22:00 ; Status DC Dicyclomine HCl (Bentyl) 20 mg TID PO Last administered on 07/02/16 08:16; Start 06/30/16 at 14:00 Albuterol/ Ipratropium (Duoneb) 3 ml RTQID NEB Last administered on 07/02/16 07:43; Start 06/30/16 at 16:00 Temazepam (Restoril) 15 mg PRN QHS PRN PO INSOMNIA Last administered on 21:21; Start 06/30/16 at 23:00 Fentanyl Citrate (Fentanyl 2ml Vial) 50 mcg PRN Q1HR PRN IV SEVERE PAIN Last administered on 07/02/16 09:37; Start 07/01/16 at 05:45 Cyclobenzaprine HCl (Flexeril) 10 mg Q8HRS PO Last administered on 07/02/16 08 :17; Start 07/01/16 at 22:00 Oxycodone HCl (Oxycontin) 15 mg Q12HR PO Last administered on 07/02/16 08:17; Start 07/01/16 at 21:00 Magnesium Hydroxide (Milk Of Magnesia) 2,400 mg PRN DAILY PRN PO CONSTIPATION; Start 07/01/16 at 18:00 Bisacodyl (Dulcolax Tab) 10 mg PRN DAILY PRN PO CONSTIPATION Last administered on 3/16/17at 19:41; Start 07/01/16 at 18:00 Iohexol (Omnipaque 300 Mg/ml) 50 ml STK-MED ONCE .ROUTE ; Start 07/02/16 at 10: 08; Stop 07/02/16 at 10:09; Status DC Lidocaine/Sodium Bicarbonate (Buffered Lidocaine 1%) 20 ml STK-MED ONCE IJ ; Start 07/02/16 at 10:08; Stop 07/02/16 at 10:09; Status DC Lidocaine/Sodium Bicarbonate (Buffered Lidocaine 1%) 20 ml STK-MED ONCE IJ ; Start 07/02/16 at 10:08; Stop 07/02/16 at 10:09; Status DC Active Scripts Active Cyclobenzaprine Hcl 5 Mg Tablet 1 Tab PO TID PRN [place] 5-325 Tablet (Acetaminophen/Hydrocodone Bitart) 1 Each Tablet 1 Tab PO PRN Q6HRS PRN [Ipratropium/Albuterol Sulfate] 3 ML Nebu 3 Ml NEB RTQID Reported Methadone Hcl 10 Mg Tablet 10 Mg PO TID Zofran Odt (Ondansetron) 4 Mg Tab.rapdis 4 Mg PO PRN Q8HRS PRN Dicyclomine Hcl 20 Mg Tablet 20 Mg PO TID Oxycodone Hcl 30 Mg Tablet 10 Mg PO PRN Q8HRS Vitals/I & O Vital Sign - Last 24 Hours 07/01/16 07/01/16 07/01/16 07/01/16 10:51 11:14 11:26 14:59 Temp 98.0 98.0 Pulse 79 Resp 18 16 16 B/P 134/80 Pulse Ox 98 97 O2 Delivery Room Air Room Air Room Air Room Air 07/01/16 07/01/16 07/01/16 07/01/16 15:01 15:34 19:00 19:41 Temp 98.3 99.0 98.3 99.0 Pulse 79 79 Resp 18 18 24 B/P 141/80 128/80 Pulse Ox 94 93 O2 Delivery Room Air Room Air Room Air Room Air 07/01/16 07/01/16 07/01/16 07/01/16 20:34 21:20 23:00 23:33 Temp 97.5 97.5 Pulse 85 Resp 20 18 20 B/P 141/86 Pulse Ox 98 O2 Delivery Room Air Room Air 07/02/16 07/02/16 07/02/16 07/02/16 03:00 07:00 07:45 07:45 Temp 97.9 97.7 97.9 97.7 Pulse 80 85 Resp 18 18 B/P 125/78 141/84 Pulse Ox 98 94 97 O2 Delivery Room Air Room Air Room Air Room Air 07/02/16 07/02/16 07/02/16 07/02/16 08:17 08:17 08:18 09:36 O2 Delivery Room Air Room Air Room Air Room Air 07/02/16 09:37 O2 Delivery Room Air Intake and Output 07/01/16 07/01/16 07/02/16 15:00 23:00 07:00 Intake Total 480 ml Output Total 0 ml Balance 480 ml 0 ml MONICA BAUTISTA MD Jul 02, 2016 10:27
[2016-07-02] MEDS ORDERED: POTASSIUM CHLORIDE 20 MEQ TABLET.ER. PO ONE (11:15)
[2016-07-02] MEDS ORDERED: FENTANYL PF 250 MCG/5 ML VIAL. IV ONE (11:30)
[2016-07-02] MEDS ORDERED: MIDAZOLAM HCL/PF 5 MG/5 ML VIAL IV ONE (11:30)
[2016-07-02] MEDS ORDERED: CONTRAST GIVEN MC PRN (11:30)
[2016-07-02] MEDS ORDERED: IOHEXOL 300 MG/ML 50 ML VIAL. INT CAT ONE (11:30)
--- NOTE | 2016-07-02 12:20 | PDOC ---
MODERATE SEDATION ASSESSMENT RISKS/ALTERNATIVES Risks/Alternatives Risks and alternatives of this type of sedation and procedure discussed with: RISK/ALTERNATIVES: Patient H & P ON CHART H & P H & P on chart and reviewed for co-morbid conditions and appropriate labs. H&P ON CHART: Yes STATUS PREG STATUS ASSESSED: N/A MEDS/ALLERGIES REVIEWED Meds/Allergies Reviewed Medications and Allergies including time and route of recently administered narcotics and sedatives. MEDS/ALLERGIES REVIEWED: Yes ASA RATING ASA RATING: II AIRWAY ASSESSMENT Airway Assessment Airway patency, oral function limitations, presence of caps, crowns, dentures, partials, and ability to extend neck assessed. AIRWAY ASSESSMENT: Yes MALLAMPATI SCORE MALLAMPATI SCORE: III PRE-SEDATION ASSESSMENT PRE-SEDATION ASSESSMENT: Yes TRELL HERNANDEZ MD Jul 02, 2016 12:20
--- NOTE | 2016-07-02 12:30 | PDOC ---
Exam Physical Therapy Professor Physical Therapy Professor Myra Qc Analyst Qc Analyst F Ndumbu Pre-Procedure Diagnosis Pre-Procedure Diagnosis 60 YO male with chronic LBP, possibly associated with old L2 fracture. Now with superimposed acute severe LBP, with recent T12 and L3 compression fractures. Post-Procedure Diagnosis Post-Procedure Diagnosis Same Procedure Performed Procedure Performed Fluoro guided T12 and L3 kyphoplasty. Fluoro guided L2 vertebroplasty. Type of Anesthesia Type of Anesthesia Local + Mod sedation Estimated Blood Loss EBL: Minimal Condition of Patient Condition of Patient Stable. No apparent complication. Disposition Disposition From IR return to [facility] for recovery. F/u with HIMS, IBIS and Dr Hilliard. Full report to follow. TRELL HERNANDEZ MD Jul 02, 2016 12:30
--- NOTE | 2016-07-02 14:46 | RAD ---
Fluoroscopy guided T12 kyphoplasty Fluoroscopy guided L3 kyphoplasty Fluoroscopy guided L2 vertebroplasty Indication: 60-year-old male with at least moderate chronic low back pain, likely associated with an old L2 compression fracture, with persistently vertebral body fracture fragments. He has superimposed acute, severe low back pain, related to recent T12 and L3 vertebral body compression fractures, as demonstrated on [facility] CT lumbar spine done 06/30/2016. Image guided kyphoplasty or vertebroplasty is planned at all 3 levels. Fluoro time: 29.5 minutes Kerma-Area Product: 149 Gycm2 Moderate sedation: 61 minutes moderate sedation was provided utilizing a total of 3 mg Versed and 150 mcg fentanyl, IV. The patient was appropriately monitored by a qualified independent observer throughout the course of the moderate sedation. Antibiotic: A single dose of Ancef was administered within 1 hour of the procedure start time. Consent: The procedure was explained in its entirety to the patient and/or the patient's designated telephone services sales representative by a member of the treatment team. This included a discussion of risks and benefits and commonly accepted alternatives to the procedure, as well as expected consequences of no treatment at all. Discussion of risks included, but was not limited to, those that are most frequent and those that are rare, but possibly severe or life-threatening, as well as the possibility of unforeseen complications. Sterility: All elements of maximal sterile barrier technique, including the use of a cap, mask, sterile gown, sterile gloves, large sterile sheet, appropriate hand hygiene, and 2% chlorhexidine for cutaneous antisepsis (or acceptable alternative antiseptic per current guidelines) were utilized. Procedure: Informed was obtained from the patient. He was placed prone on the angiography table. Midline low back was prepped and draped in the usual sterile fashion, utilizing all elements of maximal sterile barrier technique, as described above. Moderate sedation was provided with IV Fentanyl and Versed. 1 gram Ancef was given IV, prophylactically. T12 kyphoplasty: Using aseptic technique, local anesthesia, and direct fluoroscopic guidance a 10 gauge vertebral augmentation needle was successfully introduced into anterior midline of the T12 vertebral body, via unilateral right transpedicular approach. A 15 mm vertebral augmentation balloon was then coaxially introduced through the needle, and was gently inflated under fluoroscopic control, creating a pocket suitable to accept vertebral augmentation cement. The balloon was then deflated and removed. Contrast opacified polymethylmethacrylate was then very slowly and carefully introduced through the vertebral augmentation needle, using strict fluoroscopic control. There was resulting good filling of the T12 vertebral body, without significant extraosseous extravasation of opacified cement. The needle was then removed and a sterile dressing was applied. Patient tolerated the procedure well, without apparent complication. L3 kyphoplasty: Using aseptic technique, local anesthesia, and direct fluoroscopic guidance, a 10-gauge vertebral augmentation needle was successfully introduced into anterior midline of the L3 vertebral body, via right transpedicular access. A 15 mm vertebral augmentation balloon was then coaxially introduced through the needle, and was gently inflated under fluoroscopic control, creating a small pocket suitable to accept vertebral augmentation cement. The balloon was then deflated and removed. Contrast opacified polymethylmethacrylate was then very slowly and carefully introduced through the vertebral augmentation needle, utilizing strict fluoroscopic control. There was resulting good filling of the L3 vertebral body, without significant extraosseous extravasation of opacified cement. The needle was then removed and a sterile dressing was applied. Patient tolerated the procedure well without apparent complication. L2 vertebroplasty: Using aseptic technique, local anesthesia, and direct fluoroscopic guidance, an 11 gauge vertebroplasty needle was successfully introduced into anterior midline of the L2 vertebral body, via right transpedicular approach. Contrast opacified polymethylmethacrylate was then slowly and carefully introduced through the vertebroplasty needle, under strict fluoroscopic control. There was resulting good filling of the L2 vertebral body, without significant extraosseous extravasation of opacified cement. The vertebroplasty needle was removed and a sterile dressing was applied. Patient tolerated the procedure well, without apparent complication. Impression: 1. Successful, uneventful fluoroscopy guided T12 and L3 kyphoplasty, as described. 2. Successful, uneventful fluoroscopy guided L2 vertebroplasty, as described.
--- NOTE | 2016-07-02 16:06 | PDOC ---
SUBJECTIVE Subjective Pt s/p vertebral augmentation. Denies back pain or leg pain. OBJECTIVE Objective procedural plain films reviewed - good position of material Vital Signs Vital Signs Date Time Temp Pulse Resp B/P Pulse Ox O2 Delivery O2 Flow Rate FiO2 07/02/16 15:51 Room Air 07/02/16 15:00 107 16 138/76 100 Room Air 07/02/16 13:45 88 16 135/80 93 Room Air 07/02/16 13:15 89 16 138/84 93 Room Air 07/02/16 12:57 Room Air 07/02/16 12:53 Room Air 07/02/16 12:45 82 16 142/84 93 Room Air 07/02/16 12:30 16 16 98/74 100 Room Air 07/02/16 12:15 84 16 110/77 92 Room Air 07/02/16 12:00 80 18 119/82 92 Room Air 07/02/16 11:55 87 12 100 Nasal Cannula 2.0 07/02/16 11:48 12 100 Nasal Cannula 2.0 07/02/16 09:37 Room Air 07/02/16 09:36 Room Air 07/02/16 08:18 Room Air 07/02/16 08:17 Room Air 07/02/16 08:17 Room Air 07/02/16 07:45 Room Air 07/02/16 07:45 97 Room Air 07/02/16 07:00 97.7 85 18 141/84 94 Room Air 97.7 07/02/16 03:00 97.9 80 18 125/78 98 Room Air 97.9 07/01/16 23:33 20 07/01/16 23:00 97.5 85 18 141/86 98 Room Air 97.5 07/01/16 21:20 20 07/01/16 20:34 Room Air 07/01/16 19:41 24 Room Air 07/01/16 19:00 99.0 79 18 128/80 93 Room Air 99.0 I & O Intake and Output 07/02/16 07:00 Intake Total 480 ml Output Total 0 ml Balance 480 ml Intake Oral 480 ml Output Urine Total 0 ml # Voids 4 PHYSICAL EXAM Physical Exam AAOx4, NAD, FLORES, sensation intact LT ASSESSMENT/PLAN Assessment/Plan 60M with thoracolumbar compression fxrs s/p vertebral augmentation today by IR -overall appears to be doing well -has brace - wear at all times when out of bed, no lifting over 10lbs, avoid strenuous activity -okay to d/c from NS standpoint when otherwise meets criteria -when able to d/c, follow-up with NS approx 2-4 weeks with repeat upright lumbar AP/Lat plain films just prior to appointment ([phone]) Problems: COMMENT Lab Laboratory Tests Test 07/02/16 06:24 White Blood Count 7.6x10^3/uL (4.0-11.0) Red Blood Count 4.04x10^6/uL (4.30-5.70) Hemoglobin 14.1g/dL (13.0-17.5) Hematocrit 42.0% (39.0-53.0) Mean Corpuscular Volume 104fL (79-100) Mean Corpuscular Hemoglobin 35pg (25-35) Mean Corpuscular Hemoglobin Concent 33g/dL (31-37) Red Cell Distribution Width 15.4% (11.5-14.5) Platelet Count 200x10^3/uL (140-400) Neutrophils (%) (Auto) 68% (31-73) Lymphocytes (%) (Auto) 22% (24-48) Monocytes (%) (Auto) 8% (0-9) Eosinophils (%) (Auto) 2% (0-3) Basophils (%) (Auto) 1% (0-3) Neutrophils # (Auto) 5.1x10^3uL (1.8-7.7) Lymphocytes # (Auto) 1.7x10^3/uL (1.0-4.8) Monocytes # (Auto) 0.6x10^3/uL (0.0-1.1) Eosinophils # (Auto) 0.1x10^3/uL (0.0-0.7) Basophils # (Auto) 0.1x10^3/uL (0.0-0.2) Prothrombin Time 12.2SEC (11.7-14.0) Prothromb Time International Ratio 1.0 (0.8-1.1) Sodium Level 137mmol/L (136-145) Potassium Level 3.4mmol/L (3.5-5.1) Chloride Level 102mmol/L (98-107) Carbon Dioxide Level 29mmol/L (21-32) Anion Gap 6 (6-14) Blood Urea Nitrogen 8mg/dL (8-26) Creatinine 0.7mg/dL (0.7-1.3) Estimated GFR (Cockcroft-Gault) 139.7 Glucose Level 105mg/dL (70-99) Calcium Level 8.8mg/dL (8.5-10.1) GRIFFIN ZAVALA MD Jul 02, 2016 16:05
--- NOTE | 2016-07-02 16:35 | RAD ---
Examination: 2 views of the cervical spine History: History of popping sensation in the neck with movement Comparison: CT from 06/12/2012 Findings: Screw transfixing the C2 vertebra through the odontoid is again identified. Intervertebral disc spacer are identified at C3-C4, C4-C5 C5-C6 and C6-C7 vertebral levels. The bilateral facets are well aligned. There is interbody fusion from C3 to C7 vertebral levels. A cerclage posterior wire identified at the C3-C6 grossly similar to prior exam. Impression: Multilevel interbody fusion with hardware as described above grossly similar to prior exam.
[2016-07-02] MEDS: TEMAZEPAM 15 MG CAPSULE PO PRN (21:29)
== END 2016-07-02 23:45 | disposition left against medical advice (07) | DRG 515 ==
LOC: ER 17:05 → 5 SOUTH 20:45
PROVIDERS: ADMIT Internal Medicine Hematology & Oncology; ATTEND Internal Medicine Hematology & Oncology
PROC: 0PS43ZZ Reposition Thoracic Vertebra, Percutaneous Approach (ICD-10-PCS; principal; 2016-07-02)
PROC: 0QS03ZZ Reposition Lumbar Vertebra, Percutaneous Approach (ICD-10-PCS; 2016-07-02)
PROC: 0QU03JZ Supplement Lumbar Vertebra with Synthetic Substitute, Percutaneous Approach (ICD-10-PCS; 2016-07-02)
PROC: 0PU43JZ Supplement Thoracic Vertebra with Synthetic Substitute, Percutaneous Approach (ICD-10-PCS; 2016-07-02)
DX: M48.55XA Collapsed vertebra, not elsewhere classified, thoracolumbar region, initial encounter for fracture (principal); E43 Unspecified severe protein-calorie malnutrition; F41.9 Anxiety disorder, unspecified; J44.9 Chronic obstructive pulmonary disease, unspecified; K59.00 Constipation, unspecified; Z53.21 Procedure and treatment not carried out due to patient leaving prior to being seen by health care provider; M17.11 Unilateral primary osteoarthritis, right knee; M47.816 Spondylosis without myelopathy or radiculopathy, lumbar region; M48.06 Spinal stenosis, lumbar region; Z82.49 Family history of ischemic heart disease and other diseases of the circulatory system; Z85.46 Personal history of malignant neoplasm of prostate; Z68.24 Body mass index [BMI] 24.0-24.9, adult; Z88.8 Allergy status to other drugs, medicaments and biological substances; Z88.6 Allergy status to analgesic agent; Z88.5 Allergy status to narcotic agent
CPT/HCPCS: 22511; 22513; 22514; 36415; 72040; 72100; 72131; 80048; 80053; 85027; 85610; 94250; 94640; 94760; 96372; 96374; 96375; C1758; C1892; J0690; J1170; J2250; J2360; J2405; J3010; J3360; J7030; J7620; Q0162; Q9967; 99285-25

== ENCOUNTER 2016-07-10 10:11 | Emergency (ER) | payer MEDICARE ==
[~2016-07-10] VITALS: Ht 188 cm; Wt 83.9 kg
[2016-07-10 10:33] VITALS: BP 124/77
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
[2016-07-10] MEDS ORDERED: OXYCODONE/APAP 5/325 TABLET. PO ONE (11:30)
--- NOTE | 2016-07-10 12:06 | RAD ---
Indication back pain. AP and lateral views of the lumbar spine were obtained as well as a coned view targeted to the lumbosacral junction. Comparison is made to a plain film examination 11 days earlier. There are no kyphoplasty changes at L1-L2 and L3. There has been no additional change in the appearance of the lumbar spine on plain films. IMPRESSION: Interval kyphoplasty changes. No additional change relative to the previous plain film exam 11 days ago
== END 2016-07-10 12:45 | disposition home or self-care (01) ==
LOC: ER 10:11
DX: Z76.0 Encounter for issue of repeat prescription (principal); M54.9 Dorsalgia, unspecified; Z88.6 Allergy status to analgesic agent; Z88.8 Allergy status to other drugs, medicaments and biological substances
CPT/HCPCS: 72100; 99284

== ENCOUNTER 2016-07-12 10:39 | Inpatient (IN) | payer MEDICARE ==
[~2016-07-12] VITALS: Ht 188 cm; Wt 84.4 kg
[2016-07-12] MEDS ORDERED: MORPHINE SULFATE 10 MG/ML VIAL. IV ONE ×2 (13:00→15:15)
[2016-07-12 13:22] LABS: POTASSIUM ISTAT 3.6 mmol/L (3.5-5.0)
[2016-07-12 13:31] LABS: BASO % 1 % (0-3); EOS % 1 % (0-3); HEMATOCRIT 45.5 % (39.0-53.0); HEMOGLOBIN 15.2 g/dL (13.0-17.5); LYMPH # 1.3 x10^3/uL (1.0-4.8); LYMPH % 21 % (24-48); MEAN CORPUSCULAR HEMOGLOBIN 35 pg (25-35); MEAN CORPUSCULAR HGB CONC 33 g/dL (31-37); MEAN CORPUSCULAR VOLUME 104 fL (79-100); MONO % 10 % (0-9); NEUT % 68 % (31-73); PLATELET COUNT 233 x10^3/uL (140-400); RED BLOOD COUNT 4.38 x10^6/uL (4.30-5.70); RED CELL DISTRIBUTION WIDTH 14.4 % (11.5-14.5); WHITE BLOOD COUNT 6.1 x10^3/uL (4.0-11.0)
--- NOTE | 2016-07-12 14:50 | RAD ---
CT of the lumbar spine without contrast, 07/12/2016: History: Back pain after kyphoplasty Noncontrast scans were obtained. Comparison is made to a study from 06/30/2016. Cement is now present within the fractured T12, L2 and L3 vertebral bodies due to interval kyphoplasty/vertebroplasty procedures. The degree of vertebral body compression at these levels is similar to that seen on the previous exam. No extension of cement or vertebral body fragments into the spinal canal is evident at these 3 levels. Mild loss of height of the L4 and L5 vertebral bodies is unchanged. There is bony fusion of the sacroiliac joints. There is mild to moderate facet joint arthropathy at several levels in the lower lumbar spine. Mild scattered disc bulges appear to be unchanged. There is mild associated central spinal stenosis at L2-3 and L3-4. The paraspinous soft tissues are unremarkable. IMPRESSION: 1. Interval vertebroplasty/kyphoplasty procedures at T12, L2 and L3. 2. Stable lower thoracic and lumbar compression deformities. PQRS Compliance Statement: One or more of the following individualized dose reduction techniques were utilized for this examination: 1. Automated exposure control 2. Adjustment of the mA and/or kV according to patient size 3. Use of iterative reconstruction technique
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
[2016-07-12] MEDS ORDERED: ORPHENADRINE CITRATE 60 MG/2 ML VIAL. IM ONE (16:00)
--- NOTE | 2016-07-12 17:23 | ACF ---
Admission Forms Criteria BACK PAIN Clinical Indications for Admission to Inpatient Care (Place 'X' for any and all applicable criteria): Admission is indicated for ANY ONE of the following (1)(2)(3)(4)(5)(6): [X]I. Inpatient admission required rather than observation care (Also use Back Pain: Observation Care as appropriate) because of ANY ONE of the following [X]a) Severe pain requiring acute inpatient management [ ]b) Immediate inpatient surgery [ ]c) Other condition, treatment or monitoring requiring inpatient admission [ ]II. Spine fracture with significant damage or threat of damage to vertebral column or spinal cord [ ]III. Progressive or severe neurologic deficit [ ]IV. Suspected spinal infection (e.g., epidural abscess, vertebral osteomyelitis)(10) [ ]V. Suspected cause requires inpatient treatment (eg, aortic dissection) [ ]. Cauda equina syndrome as indicated by ANY ONE of the following (9): [ ]a) Bowel dysfunction [ ]b) Bladder dysfunction [ ]c) Saddle anesthesia [ ]d) Neurologic abnormality suggesting cauda equina impingement Extended stay beyond goal length of stay may be needed for (3)(25): [ ]a) Spinal cord compression from stenosis, disk, or tumor (8)(9) [ ]b) Traumatic or pathologic vertebral fracture (33) [ ]c) Vertebral infection(10) [ ]d) Severe pain that is difficult to control [ ]e) Older patients(65 years or older) The original [employer] content created by [employer] has been revised. The portions of the content which have been revised are identified through the use of italic text or in bold, and [facility] has neither reviewed nor approved the modified material. All other unmodified content is copyright [employer]. Please see references footnoted in the original [facility] edition 2016 Admission Criteria Met?: Yes CALIN BAUMAN Jul 12, 2016 17:23
[2016-07-12] MEDS: MORPHINE SULFATE 4 MG/ML DISP.SYRIN. IV PRN ×3 (18:17→22:28)
[2016-07-12 18:55] VITALS: BP 138/65
[2016-07-12 18:59] VITALS: BP 138/65
[2016-07-12] MEDS ORDERED: DEXAMETHASONE SOD PHOS 20 MG/5 ML VIAL. IV ONE (21:45)
[2016-07-12 22:55] VITALS: BP 109/67
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
[2016-07-13] MEDS: TEMAZEPAM 15 MG CAPSULE PO PRN ×2 (00:18→20:48)
[2016-07-13] MEDS: MORPHINE SULFATE 4 MG/ML DISP.SYRIN. IV PRN ×7 (00:20→16:30)
[2016-07-13] MEDS: CYCLOBENZAPRINE 10 MG TABLET. PO PRN ×3 (01:56→20:48)
[2016-07-13 03:59] VITALS: BP 117/77
[2016-07-13 07:00] VITALS: BP 116/70
--- NOTE | 2016-07-13 07:37 | PDOC ---
PROGRESS NOTES Chief Complaint Chief Complaint cc: back pain A/P Acute on chronic lower back pain: Prior hx of vertebroplasty/kyphoplasty procedures at T12, L2 and L3. Plan NS consultation pending, on Decadron and iv morphine. PT/OT labs reviewed avoid co2 narcosis History of Present Illness History of Present Illness pain 10/25, no chest pain Vitals Vitals Vital Signs Date Time Temp Pulse Resp B/P Pulse Ox O2 Delivery O2 Flow Rate FiO2 07/13/16 05:27 18 Room Air 07/13/16 03:59 97.0 76 117/77 98 97.0 Physical Exam General: Alert, Oriented X3, Cooperative Heart: Normal S1, Normal S2 Lungs: Clear Abdomen: Normal bowel sounds Extremities: No clubbing Labs LABS Laboratory Tests Test 07/12/16 13:12 07/12/16 13:18 White Blood Count 6.1x10^3/uL (4.0-11.0) Red Blood Count 4.38x10^6/uL (4.30-5.70) Hemoglobin 15.2g/dL (13.0-17.5) Hematocrit 45.5% (39.0-53.0) Mean Corpuscular Volume 104fL (79-100) Mean Corpuscular Hemoglobin 35pg (25-35) Mean Corpuscular Hemoglobin Concent 33g/dL (31-37) Red Cell Distribution Width 14.4% (11.5-14.5) Platelet Count 233x10^3/uL (140-400) Neutrophils (%) (Auto) 68% (31-73) Lymphocytes (%) (Auto) 21% (24-48) Monocytes (%) (Auto) 10% (0-9) Eosinophils (%) (Auto) 1% (0-3) Basophils (%) (Auto) 1% (0-3) Neutrophils # (Auto) 4.1x10^3uL (1.8-7.7) Lymphocytes # (Auto) 1.3x10^3/uL (1.0-4.8) Monocytes # (Auto) 0.6x10^3/uL (0.0-1.1) Eosinophils # (Auto) 0.1x10^3/uL (0.0-0.7) Basophils # (Auto) 0.0x10^3/uL (0.0-0.2) Bedside Hemoglobin 16.3g/dL (14-18) Bedside Hematocrit 48% (37-52) Bedside Sodium 140mmol/L (135-145) Bedside Potassium 3.6mmol/L (3.5-5.0) Bedside Chloride 100mmol/L (98-110) Bedside Total CO2 25mmol/L (23-32) Anion Gap 19mmol/L (6-14) Bedside Blood Urea Nitrogen 10mg/dL (8-26) Bedside Creatinine 0.8mg/dL (0.5-1.4) Glucose Level 107mg/dL (70-99) Bedside Ionized Calcium (Yaya) 1.14mmol/L (1.13-1.32) Assessment and Plan Assessmemt and Plan Problems Medical Problems: (1) Intractable back pain Status: Acute Problems: Comment Review of Relevant I have reviewed the following items jet (where applicable) has been applied. Labs Laboratory Tests Test 07/12/16 13:12 07/12/16 13:18 White Blood Count 6.1x10^3/uL (4.0-11.0) Red Blood Count 4.38x10^6/uL (4.30-5.70) Hemoglobin 15.2g/dL (13.0-17.5) Hematocrit 45.5% (39.0-53.0) Mean Corpuscular Volume 104fL (79-100) Mean Corpuscular Hemoglobin 35pg (25-35) Mean Corpuscular Hemoglobin Concent 33g/dL (31-37) Red Cell Distribution Width 14.4% (11.5-14.5) Platelet Count 233x10^3/uL (140-400) Neutrophils (%) (Auto) 68% (31-73) Lymphocytes (%) (Auto) 21% (24-48) Monocytes (%) (Auto) 10% (0-9) Eosinophils (%) (Auto) 1% (0-3) Basophils (%) (Auto) 1% (0-3) Neutrophils # (Auto) 4.1x10^3uL (1.8-7.7) Lymphocytes # (Auto) 1.3x10^3/uL (1.0-4.8) Monocytes # (Auto) 0.6x10^3/uL (0.0-1.1) Eosinophils # (Auto) 0.1x10^3/uL (0.0-0.7) Basophils # (Auto) 0.0x10^3/uL (0.0-0.2) Bedside Hemoglobin 16.3g/dL (14-18) Bedside Hematocrit 48% (37-52) Bedside Sodium 140mmol/L (135-145) Bedside Potassium 3.6mmol/L (3.5-5.0) Bedside Chloride 100mmol/L (98-110) Bedside Total CO2 25mmol/L (23-32) Anion Gap 19mmol/L (6-14) Bedside Blood Urea Nitrogen 10mg/dL (8-26) Bedside Creatinine 0.8mg/dL (0.5-1.4) Glucose Level 107mg/dL (70-99) Bedside Ionized Calcium (Yaya) 1.14mmol/L (1.13-1.32) Laboratory Tests Test 07/12/16 13:12 07/12/16 13:18 White Blood Count 6.1x10^3/uL (4.0-11.0) Red Blood Count 4.38x10^6/uL (4.30-5.70) Hemoglobin 15.2g/dL (13.0-17.5) Hematocrit 45.5% (39.0-53.0) Mean Corpuscular Volume 104fL (79-100) Mean Corpuscular Hemoglobin 35pg (25-35) Mean Corpuscular Hemoglobin Concent 33g/dL (31-37) Red Cell Distribution Width 14.4% (11.5-14.5) Platelet Count 233x10^3/uL (140-400) Neutrophils (%) (Auto) 68% (31-73) Lymphocytes (%) (Auto) 21% (24-48) Monocytes (%) (Auto) 10% (0-9) Eosinophils (%) (Auto) 1% (0-3) Basophils (%) (Auto) 1% (0-3) Neutrophils # (Auto) 4.1x10^3uL (1.8-7.7) Lymphocytes # (Auto) 1.3x10^3/uL (1.0-4.8) Monocytes # (Auto) 0.6x10^3/uL (0.0-1.1) Eosinophils # (Auto) 0.1x10^3/uL (0.0-0.7) Basophils # (Auto) 0.0x10^3/uL (0.0-0.2) Bedside Hemoglobin 16.3g/dL (14-18) Bedside Hematocrit 48% (37-52) Bedside Sodium 140mmol/L (135-145) Bedside Potassium 3.6mmol/L (3.5-5.0) Bedside Chloride 100mmol/L (98-110) Bedside Total CO2 25mmol/L (23-32) Anion Gap 19mmol/L (6-14) Bedside Blood Urea Nitrogen 10mg/dL (8-26) Bedside Creatinine 0.8mg/dL (0.5-1.4) Glucose Level 107mg/dL (70-99) Bedside Ionized Calcium (Yaya) 1.14mmol/L (1.13-1.32) Medications Current Medications Morphine Sulfate 5 mg 1X ONCE IV Last administered on 07/12/16 13:20; Start 07/12/16 at 13:00; Stop 07/12/16 at 13:01; Status DC Morphine Sulfate 5 mg 1X ONCE IV Last administered on 07/12/16 14:52; Start 07/12/16 at 15:15; Stop 07/12/16 at 15:16; Status DC Orphenadrine Citrate (Norflex) 60 mg 1X ONCE IM Last administered on 16:20; Start 07/12/16 at 16:00; Stop 07/12/16 at 16:01; Status DC Morphine Sulfate 4 mg PRN Q2HR PRN IV PAIN Last administered on 07/13/16 04:57 ; Start 07/12/16 at 17:15; Stop 07/13/16 at 17:14 Dexamethasone Sodium Phosphate (Decadron) 10 mg 1X ONCE IV Last administered on 07/12/16 22:28; Start 07/12/16 at 21:45; Stop 07/12/16 at 21:46; Status DC Dexamethasone (Decadron) 2 mg BID PO ; Start 07/13/16 at 09:00 Temazepam (Restoril) 15 mg PRN QHS PRN PO INSOMNIA Last administered on 00:18; Start 07/12/16 at 21:45 Polyethylene Glycol (miraLAX PACKET) 17 gm DAILY PO ; Start 07/13/16 at 09:00 Cyclobenzaprine HCl (Flexeril) 5 mg PRN TID PRN PO MUSCLE SPASMS Last administered on 07/13/16t 01:56; Start 07/12/16 at 22:00 Non-Formulary Medication 3 ml RTQID NEB ; Start 07/13/16 at 08:00; Status UNV Albuterol/ Ipratropium (Duoneb) 3 ml RTQID NEB ; Start 07/13/16 at 08:00 Active Scripts Active Cyclobenzaprine Hcl 5 Mg Tablet 1 Tab PO TID PRN [place] 5-325 Tablet (Acetaminophen/Hydrocodone Bitart) 1 Each Tablet 1 Tab PO PRN Q6HRS PRN [Ipratropium/Albuterol Sulfate] 3 ML Nebu 3 Ml NEB RTQID Reported Methadone Hcl 10 Mg Tablet 10 Mg PO TID Zofran Odt (Ondansetron) 4 Mg Tab.rapdis 4 Mg PO PRN Q8HRS PRN Dicyclomine Hcl 20 Mg Tablet 20 Mg PO TID Oxycodone Hcl 30 Mg Tablet 10 Mg PO PRN Q8HRS Vitals/I & O Vital Sign - Last 24 Hours 07/12/16 07/12/16 07/12/16 07/12/16 11:04 13:21 13:51 14:24 Temp 98.4 98.4 Pulse 91 78 78 80 Resp 20 18 18 18 B/P 129/84 120/74 125/73 128/75 Pulse Ox 98 94 94 98 O2 Delivery Room Air Room Air Room Air Room Air 07/12/16 07/12/16 07/12/16 07/12/16 14:51 15:21 16:21 17:21 Pulse 80 76 70 72 Resp 16 18 18 18 B/P 135/77 131/77 128/71 130/79 Pulse Ox 97 96 96 96 O2 Delivery Room Air Room Air Room Air 07/12/16 07/12/16 07/12/16 07/12/16 18:21 18:55 18:59 19:45 Temp 97.0 97.0 97.0 97.0 Pulse 72 77 77 Resp 18 20 20 B/P 129/75 138/65 138/65 Pulse Ox 97 96 96 O2 Delivery Room Air Room Air Room Air Room Air 07/12/16 07/12/16 07/12/1628/17 20:21 22:28 22:55 00:20 Temp 97.7 97.7 Pulse 81 Resp 18 18 18 B/P 109/67 Pulse Ox 96 O2 Delivery Room Air Room Air Room Air Room Air 07/13/16 07/13/16 07/13/16 07/13/16 02:23 03:59 04:57 05:27 Temp 97.0 97.0 Pulse 76 Resp 18 B/P 117/77 Pulse Ox 98 O2 Delivery Room Air Room Air Room Air Room Air Intake and Output 07/12/16 07/12/16 07/13/16 15:00 23:00 07:00 Intake Total 680 ml Balance 680 ml NATALIE JAY MD Jul 13, 2016 07:37
[2016-07-13] MEDS: IPRATRPIUM/ALBUTEROL 0.5/2.5MG 3 ML NEBU. NEB SCH ×4 (08:00→20:00)
[2016-07-13] MEDS ORDERED: NON FORMULARY ITEM ([Ipratropium/Albuterol Sulfate] (Duoneb) 3 ML) NEB SCH (08:00)
[2016-07-13 08:43] LABS: FOLATE 10.58 ng/ml (3.2-20.0)
[2016-07-13] MEDS: DEXAMETHASONE 1 MG TABLET PO SCH ×2 (08:51→20:48)
[2016-07-13] MEDS: POLYETHYLENE GLYCOL 3350 17 GM PACKET. PO SCH (08:52)
[2016-07-13 11:00] VITALS: BP 126/72
--- NOTE | 2016-07-13 12:06 | RAD ---
EXAM: Pelvic CT without contrast. HISTORY: Pelvic pain. TECHNIQUE: Computed tomographic imaging of the pelvis was performed without contrast. One or more of the following individualized dose reduction techniques were utilized for this examination: 1. Automated exposure control. 2. Adjustment of the mA and/or kV according to patient size. 3. Use of iterative reconstruction technique. COMPARISON: 01/09/2014. FINDINGS: There is a transitional lumbosacral segment. This is considered a partially sacralized L5 segment for this dictation. Is sacralized transverse processes at this level articulate with the underlying sacrum. There is partial ankylosis of the sacroiliac joints. There is a right hip arthroplasty in expected position. There is no evidence of asymmetric liner wear, osteolyses or periprosthetic fracture. There is mild marginal left acetabular and femoral head spurring and joint space narrowing. There is a mild L3 compression fracture with vertebroplasty changes. There is a moderate L4 compression fracture, chronic in appearance. There are L5 superior and inferior endplate depressions which are also chronic in appearance. There is degenerative endplate remodeling with disc bulges at the lower lumbar levels. The comminution of this finding and congenital narrowing of the central canal and hypertrophy of the ligamentum flavum results in mild left foraminal and central canal stenosis at L3-L4, and moderate right and mild left foraminal stenosis and mild central canal stenosis L4-L5. There are findings consistent with partial colonic resection. There is distal colonic diverticulosis. There are prostatectomy changes. No pathologically enlarged lymph node is seen. IMPRESSION: 1. Mild L3 compression fracture with vertebroplasty changes. There is also a chronic appearing moderate compression fracture of L4 and there are endplate depressions at L5. This is better characterized on the lumbar spine CT dated 07/12/2016. 2. Right hip arthroplasty in expected position. 3. Mild osteoarthritis of the left hip and partial ankylosis of the sacroiliac joints. 4. Transitional lumbosacral segment. 5. Multilevel degenerative change within the lumbar spine, resulting in stenosis as described above.
[2016-07-13 15:00] VITALS: BP 134/79
--- NOTE | 2016-07-13 17:15 | PDOC ---
SUBJECTIVE Subjective Pt seen and examined. Briefly, 60M s/p recent vertebral augmentation of multiple lumbar vertebrae presents with increased low back and left hip pain. He reports intermittent thigh pain, but explains the most prominent symptoms is left perilumbar and left hip pain. This has been present for about 5-6 days. He denies a clear inciting event or injury. He denies focal weakness or bowel/bladder changes. On exam, left greater trochanteric region is tender to palpation. Positive CALI on the left with hip pain. Negative left straight leg raise. Produces 5/5 resistance in BLE. Sensation intact LT. CT lumbar with expected kyphoplasty changes with no other acute findings. Some degenerative changes reported on pelvic CT. With regard to low back, would continue to wear brace when out of bed for now and continue serial imaging over next couple months to continue to verify stability/integrity of interventional augmentation of fractures. No lumbar surgical intervention recommended presently. If neurological changes occur that are concerning for lumbar neural compromise, a lumbar CT myelogram would be the next step in evaluation as he is unable to receive MRI due to coiled wire posterior cervical instrumentation from a past surgery. Complaints and exam suggest region of left hip as contributor. May benefit from evaluation by physiatry and pain management. OBJECTIVE Vital Signs Vital Signs Date Time Temp Pulse Resp B/P Pulse Ox O2 Delivery O2 Flow Rate FiO2 07/13/16 16:30 Room Air 07/13/16 15:00 97.7 91 18 134/79 97 Room Air 97.7 07/13/16 14:00 Room Air 07/13/16 11:27 96 Room Air 07/13/16 11:00 97.9 86 18 126/72 96 Room Air 97.9 07/13/16 09:25 96 Room Air 07/13/16 08:52 97 Room Air 07/13/16 08:21 97 Room Air 07/13/16 08:15 Room Air 07/13/16 07:00 97.5 72 18 116/70 93 Room Air 97.5 07/13/16 05:27 18 07/13/16 04:57 18 Room Air 07/13/16 03:59 97.0 76 20 117/77 98 Room Air 97.0 07/13/16 02:23 18 Room Air 07/13/16 00:20 18 Room Air 07/12/16 22:55 97.7 81 20 109/67 96 Room Air 97.7 07/12/16 22:28 18 Room Air 07/12/16 20:21 18 Room Air 07/12/16 19:45 Room Air 07/12/16 18:59 97.0 77 20 138/65 96 Room Air 97.0 07/12/16 18:55 97.0 77 20 138/65 96 Room Air 97.0 07/12/16 18:21 72 18 129/75 97 Room Air 07/12/16 17:21 72 18 130/79 96 I & O Intake and Output 07/13/16 07:00 Intake Total 680 ml Balance 680 ml Intake Oral 680 ml COMMENT Lab Laboratory Tests Test 07/13/16 04:50 Vitamin B12 Level 330pg/mL (247-911) Serum Folate 10.58ng/ml (3.2-20.0) GRIFFIN ZAVALA MD Jul 13, 2016 17:15
[2016-07-13 19:00] VITALS: BP 125/78
[2016-07-13] MEDS ORDERED: ACETAMINOPHEN 325 MG TABLET. PO PRN (21:15)
[2016-07-13] MEDS: MORPHINE SULFATE 2 MG/ML DISP.SYRIN. IV PRN ×2 (21:20→23:39)
[2016-07-13 23:00] VITALS: BP 127/81
[2016-07-14] MEDS: MORPHINE SULFATE 2 MG/ML DISP.SYRIN. IV PRN ×3 (02:39→14:51)
[2016-07-14 03:00] VITALS: BP 142/82
[2016-07-14] MEDS: CYCLOBENZAPRINE 10 MG TABLET. PO PRN ×2 (06:17→14:51)
[2016-07-14 07:00] VITALS: BP 120/77
[2016-07-14] MEDS: IPRATRPIUM/ALBUTEROL 0.5/2.5MG 3 ML NEBU. NEB SCH ×3 (08:32→15:43)
--- NOTE | 2016-07-14 09:51 | PDOC ---
PROGRESS NOTES Chief Complaint Chief Complaint cc: back pain A/P Acute on chronic lower back pain: Prior hx of vertebroplasty/kyphoplasty procedures at T12, L2 and L3. Plan on Decadron Lumbar CT pending d/w Dr Hilliard iv morphine. prn PT/OT labs reviewed avoid co2 narcosis SW consulted. History of Present Illness History of Present Illness pain 10/25, no chest pain Vitals Vitals Vital Signs Date Time Temp Pulse Resp B/P Pulse Ox O2 Delivery O2 Flow Rate FiO2 07/14/16 08:32 98 Room Air 07/14/16 07:00 97.5 79 16 120/77 97.5 Physical Exam General: Alert, Oriented X3, Cooperative Heart: Normal S1, Normal S2 Lungs: Clear Abdomen: Normal bowel sounds Extremities: No clubbing Assessment and Plan Assessmemt and Plan Problems Medical Problems: (1) Intractable back pain Status: Acute Problems: Comment Review of Relevant I have reviewed the following items jet (where applicable) has been applied. Labs Laboratory Tests Test 07/12/16 13:12 07/12/16 13:18 07/13/16 04:50 White Blood Count 6.1x10^3/uL (4.0-11.0) Red Blood Count 4.38x10^6/uL (4.30-5.70) Hemoglobin 15.2g/dL (13.0-17.5) Hematocrit 45.5% (39.0-53.0) Mean Corpuscular Volume 104fL (79-100) Mean Corpuscular Hemoglobin 35pg (25-35) Mean Corpuscular Hemoglobin Concent 33g/dL (31-37) Red Cell Distribution Width 14.4% (11.5-14.5) Platelet Count 233x10^3/uL (140-400) Neutrophils (%) (Auto) 68% (31-73) Lymphocytes (%) (Auto) 21% (24-48) Monocytes (%) (Auto) 10% (0-9) Eosinophils (%) (Auto) 1% (0-3) Basophils (%) (Auto) 1% (0-3) Neutrophils # (Auto) 4.1x10^3uL (1.8-7.7) Lymphocytes # (Auto) 1.3x10^3/uL (1.0-4.8) Monocytes # (Auto) 0.6x10^3/uL (0.0-1.1) Eosinophils # (Auto) 0.1x10^3/uL (0.0-0.7) Basophils # (Auto) 0.0x10^3/uL (0.0-0.2) Bedside Hemoglobin 16.3g/dL (14-18) Bedside Hematocrit 48% (37-52) Bedside Sodium 140mmol/L (135-145) Bedside Potassium 3.6mmol/L (3.5-5.0) Bedside Chloride 100mmol/L (98-110) Bedside Total CO2 25mmol/L (23-32) Anion Gap 19mmol/L (6-14) Bedside Blood Urea Nitrogen 10mg/dL (8-26) Bedside Creatinine 0.8mg/dL (0.5-1.4) Glucose Level 107mg/dL (70-99) Bedside Ionized Calcium (Yaya) 1.14mmol/L (1.13-1.32) Vitamin B12 Level 330pg/mL (247-911) Serum Folate 10.58ng/ml (3.2-20.0) Medications Current Medications Morphine Sulfate 5 mg 1X ONCE IV Last administered on 07/12/16 13:20; Start 07/12/16 at 13:00; Stop 07/12/16 at 13:01; Status DC Morphine Sulfate 5 mg 1X ONCE IV Last administered on 07/12/16 14:52; Start 07/12/16 at 15:15; Stop 07/12/16 at 15:16; Status DC Orphenadrine Citrate (Norflex) 60 mg 1X ONCE IM Last administered on 16:20; Start 07/12/16 at 16:00; Stop 07/12/16 at 16:01; Status DC Morphine Sulfate 4 mg PRN Q2HR PRN IV PAIN Last administered on 07/13/16 16:30 ; Start 07/12/16 at 17:15; Stop 07/13/16 at 17:14; Status DC Dexamethasone Sodium Phosphate (Decadron) 10 mg 1X ONCE IV Last administered on 07/12/16 22:28; Start 07/12/16 at 21:45; Stop 07/12/16 at 21:46; Status DC Dexamethasone (Decadron) 2 mg BID PO Last administered on 07/13/16 20:48; Start 07/13/16 at 09:00 Temazepam (Restoril) 15 mg PRN QHS PRN PO INSOMNIA Last administered on 20:48; Start 07/12/16 at 21:45 Polyethylene Glycol (miraLAX PACKET) 17 gm DAILY PO Last administered on 08:52; Start 07/13/16 at 09:00 Cyclobenzaprine HCl (Flexeril) 5 mg PRN TID PRN PO MUSCLE SPASMS Last administered on 07/14/16 06:17; Start 07/12/16 at 22:00 Non-Formulary Medication 3 ml RTQID NEB ; Start 07/13/16 at 08:00; Status UNV Albuterol/ Ipratropium (Duoneb) 3 ml RTQID NEB Last administered on 07/14/16 08:32; Start 07/13/16 at 08:00 Morphine Sulfate 4 mg PRN Q2HR PRN IV PAIN Last administered on 07/14/16 02:39 ; Start 07/13/16 at 21:15 Acetaminophen (Tylenol) 650 mg PRN Q6HRS PRN PO MILD PAIN / TEMP; Start at 21:15 Active Scripts Active Cyclobenzaprine Hcl 5 Mg Tablet 1 Tab PO TID PRN [place] 5-325 Tablet (Acetaminophen/Hydrocodone Bitart) 1 Each Tablet 1 Tab PO PRN Q6HRS PRN [Ipratropium/Albuterol Sulfate] 3 ML Nebu 3 Ml NEB RTQID Reported Methadone Hcl 10 Mg Tablet 10 Mg PO TID Zofran Odt (Ondansetron) 4 Mg Tab.rapdis 4 Mg PO PRN Q8HRS PRN Dicyclomine Hcl 20 Mg Tablet 20 Mg PO TID Oxycodone Hcl 30 Mg Tablet 10 Mg PO PRN Q8HRS Vitals/I & O Vital Sign - Last 24 Hours 07/13/16 07/13/16 07/13/16 07/13/16 11:00 11:27 14:00 15:00 Temp 97.9 97.7 97.9 97.7 Pulse 86 91 Resp 18 18 B/P 126/72 134/79 Pulse Ox 96 96 97 O2 Delivery Room Air Room Air Room Air Room Air 3/2807/13/16 07/13/16 07/13/16 16:30 19:00 20:00 21:20 Temp 97.9 97.9 Pulse 105 Resp 18 16 B/P 125/78 Pulse Ox 97 97 O2 Delivery Room Air Room Air Room Air Room Air 07/13/16 07/13/16 07/14/16 07/14/16 23:00 23:39 02:39 03:00 Temp 98.2 98.4 98.2 98.4 Pulse 95 88 Resp 18 16 16 18 B/P 127/81 142/82 Pulse Ox 96 97 97 98 O2 Delivery Room Air Room Air Room Air Room Air 07/14/16 07/14/16 07/14/16 03:09 07:00 08:32 Temp 97.5 97.5 Pulse 79 Resp 16 B/P 120/77 Pulse Ox 98 94 98 O2 Delivery Room Air Room Air Room Air Intake and Output 07/13/16 07/13/16 07/14/16 15:00 23:00 07:00 Intake Total 480 ml Output Total 350 ml Balance 480 ml -350 ml NATALIE JAY MD Jul 14, 2016 09:51
[2016-07-14] MEDS ORDERED: methylPREDNISolone ACETATE 40 MG/ML VIAL. IM ONE ×2 (10:00)
[2016-07-14] MEDS ORDERED: BUPIVACAINE MPF 0.25% 10 ML VIAL. IJ ONE (10:00)
[2016-07-14] MEDS: DEXAMETHASONE 1 MG TABLET PO SCH (10:32)
[2016-07-14] MEDS: POLYETHYLENE GLYCOL 3350 17 GM PACKET. PO SCH (10:33)
[2016-07-14 11:00] VITALS: BP 131/77
[2016-07-14 15:00] VITALS: BP 128/75
[2016-07-14] MEDS ORDERED: DEXA1TAB PO (18:02)
[2016-07-14] MEDS ORDERED: HYDR-971 PO (18:02)
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
[2016-07-15] MEDS ORDERED: ACETAMINOPHEN 325 MG TABLET. PO PRN (05:30)
== END 2016-07-14 18:55 | disposition home or self-care (01) | DRG 552 ==
LOC: ER 10:39 → 4 NORTH 15:40
PROVIDERS: ADMIT Internal Medicine Hematology & Oncology; ATTEND Internal Medicine Hematology & Oncology
PROC: 3E0U33Z Introduction of Anti-inflammatory into Joints, Percutaneous Approach (ICD-10-PCS; principal; 2016-07-14)
PROC: 3E0U3BZ Introduction of Anesthetic Agent into Joints, Percutaneous Approach (ICD-10-PCS; 2016-07-14)
DX: M47.26 Other spondylosis with radiculopathy, lumbar region (principal); M48.50XA Collapsed vertebra, not elsewhere classified, site unspecified, initial encounter for fracture; M54.9 Dorsalgia, unspecified; M70.62 Trochanteric bursitis, left hip; M48.06 Spinal stenosis, lumbar region; F17.210 Nicotine dependence, cigarettes, uncomplicated; F32.9 Major depressive disorder, single episode, unspecified; F41.9 Anxiety disorder, unspecified; G89.29 Other chronic pain; M46.90 Unspecified inflammatory spondylopathy, site unspecified; J44.9 Chronic obstructive pulmonary disease, unspecified; Z85.46 Personal history of malignant neoplasm of prostate; Z88.6 Allergy status to analgesic agent; Z90.49 Acquired absence of other specified parts of digestive tract; Z88.8 Allergy status to other drugs, medicaments and biological substances; Z88.5 Allergy status to narcotic agent; Z98.890 Other specified postprocedural states; Z90.79 Acquired absence of other genital organ(s)
CPT/HCPCS: 36415; 72131; 72192; 80047; 82607; 82746; 85027; 94640; 96372; 96374; 96376; J1100; J2270; J2360; J3490; J7620; 97116; 99285-25

== ENCOUNTER 2016-07-20 11:48 | Emergency (ER) | payer MEDICARE ==
[~2016-07-20] VITALS: Ht 188 cm; Wt 84.4 kg
[~2016-07-20 11:48] MED LIST changes: +DEXA1TAB PO
[2016-07-20 12:00] VITALS: BP 132/84
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
== END 2016-07-20 13:35 | disposition home or self-care (01) ==
LOC: ER 11:48
DX: G89.29 Other chronic pain (principal); M54.9 Dorsalgia, unspecified; Z76.5 Malingerer [conscious simulation]; J44.9 Chronic obstructive pulmonary disease, unspecified; Z90.79 Acquired absence of other genital organ(s); Z85.46 Personal history of malignant neoplasm of prostate; Z98.1 Arthrodesis status; Z90.49 Acquired absence of other specified parts of digestive tract; F17.210 Nicotine dependence, cigarettes, uncomplicated; Z88.6 Allergy status to analgesic agent; Z88.8 Allergy status to other drugs, medicaments and biological substances
CPT/HCPCS: 99281

== ENCOUNTER 2016-08-14 01:51 | Emergency (ER) | payer MEDICARE ==
[~2016-08-14] VITALS: Ht 188 cm; Wt 82.6 kg
[~2016-08-14 01:51] MED LIST changes: +POLY17PO29 PO; -POLY17PO5 PO
[2016-08-14 02:20] VITALS: BP 126/77
[2016-08-14] MEDS ORDERED: OXYCODONE/APAP 10/325 TABLET. PO ONE (03:00)
[2016-08-14] MEDS ORDERED: CYCL10TA2 PO (04:07)
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
[2016-08-14] MEDS ORDERED: DIPHTH,PERTUSS(ACELL),TET TOX 0.5 ML DISP.SYRIN. VAX IM ONE ×2 (04:23→04:30)
[2016-08-14] MEDS ORDERED: ORPHENADRINE CITRATE 60 MG/2 ML VIAL. IM ONE (04:30)
[2016-08-14] MEDS ORDERED: DIPH,PERTUSS(ACELL),TET PED/PF 0.5 ML VIAL VAX IM ONE (04:30)
--- NOTE | 2016-08-14 07:54 | RAD ---
Left rib detail series and PA view chest x-ray Clinical indications: Fall. Left-sided rib pain. Comparison: December 31, 2015. Findings: There are nondisplaced fractures of the lateral aspect of the left fifth and sixth ribs. There is some atelectasis within the right lung base. No pleural effusion or pneumothorax is seen. IMPRESSION: Nondisplaced left fifth and sixth rib fractures. Note-I called this report to the emergency room physician at 7:51 AM on August 14, 2016.
== END 2016-08-14 04:19 | disposition home or self-care (01) ==
LOC: ER 01:51
DX: S20.212A Contusion of left front wall of thorax, initial encounter (principal); S80.211A Abrasion, right knee, initial encounter; S30.810A Abrasion of lower back and pelvis, initial encounter; F32.9 Major depressive disorder, single episode, unspecified; F41.9 Anxiety disorder, unspecified; G89.29 Other chronic pain; J44.9 Chronic obstructive pulmonary disease, unspecified; Z88.6 Allergy status to analgesic agent; Z88.5 Allergy status to narcotic agent; Z88.8 Allergy status to other drugs, medicaments and biological substances; W17.2XXA Fall into hole, initial encounter; Y93.89 Activity, other specified; Y92.89 Other specified places as the place of occurrence of the external cause; Y99.8 Other external cause status
CPT/HCPCS: 71101; 90471; 90715; 96372; 99284; J2360

== ENCOUNTER 2017-04-13 13:08 | Emergency (ER) | payer MEDICARE ==
[2017-04-13 14:52] LABS: OBC FLU VALID
== END 2017-04-13 15:08 | disposition home or self-care (01) ==
LOC: ER 13:08
DX: J09.X2 Influenza due to identified novel influenza A virus with other respiratory manifestations (principal); G89.29 Other chronic pain; J44.9 Chronic obstructive pulmonary disease, unspecified; Z88.5 Allergy status to narcotic agent; Z88.6 Allergy status to analgesic agent; Z88.8 Allergy status to other drugs, medicaments and biological substances
CPT/HCPCS: 87804; 87804-59; 99284

== ENCOUNTER → 2017-04-26 | Day surgery (SDC) | payer MEDICARE ==
[~2017-04-26] MED LIST changes: -AMIT25TA PO; -CYCL5TAB PO; -DEXA1TAB PO; -DICY20TA3 PO; -HYDR-971 PO; +HYDROmorphone 2 MG/ML VIAL IV; +IV RINGERS,LACTATED 1000ML 1,000 ML IV; -Ipratropium/Albuterol Sulfate NEB; +LIDOCAINE 1% PF 2 ML VIAL. ID; -METH10TA2 PO; -MONT10TA6 PO; +MORPHINE SULFATE 2 MG/ML DISP.SYRIN. IV; -ONDA4TAB10 PO; -ONDA4TAB7 PO; -OXYC10TA32 PO; -OXYC20TA34 PO; -OXYC30TA PO; -POLY17PO29 PO; -PRED-220 PO; -PREG225C PO; +PROCHLORPERAZINE 10 MG/2 ML VIAL. IV; +PROPOFOL 20 ML IV; -TEMA30CA PO; -TIZA4CAP3 PO; -TRAZ100T12 PO; -TRAZ150T55 PO; +fentaNYL PF VIAL 100 MCG/2 ML VIAL IV; -trazodone PO
== END | disposition home or self-care (01) ==
LOC: ENDOS 06:47
DX: K21.0 Gastro-esophageal reflux disease with esophagitis (principal); F32.9 Major depressive disorder, single episode, unspecified; J44.1 Chronic obstructive pulmonary disease with (acute) exacerbation; F41.9 Anxiety disorder, unspecified; Z86.010 Personal history of colon polyps; Z90.49 Acquired absence of other specified parts of digestive tract; Z85.46 Personal history of malignant neoplasm of prostate; Z96.641 Presence of right artificial hip joint; Z98.1 Arthrodesis status; Z98.890 Other specified postprocedural states; Z79.899 Other long term (current) drug therapy; Z88.8 Allergy status to other drugs, medicaments and biological substances; Z88.6 Allergy status to analgesic agent
CPT/HCPCS: 43235; J2704

== ENCOUNTER → 2017-06-03 | Outpatient (CLI) | payer MEDICARE | END | disposition home or self-care (01) | LOC: RAD 15:04 | DX: M48.07 Spinal stenosis, lumbosacral region (principal); M47.896 Other spondylosis, lumbar region; Z98.890 Other specified postprocedural states | CPT/HCPCS: 72100 ==

== ENCOUNTER → 2017-07-13 | Outpatient (CLI) | payer MEDICARE ==
[2017-07-13 10:01] LABS: INFLUENZA A PATIENT NEGATIVE (NEGATIVE); INFLUENZA B PATIENT NEGATIVE (NEGATIVE); OBC FLU VALID
[2017-07-13 10:06] LABS: ANION GAP 8 (6-14); BLOOD UREA NITROGEN 12 mg/dL (8-26); CALCIUM 8.9 mg/dL (8.5-10.1); CARBON DIOXIDE 28 mmol/L (21-32); CHLORIDE 103 mmol/L (98-107); CHOLESTEROL 106 mg/dL (0-200); CREATININE 1.2 mg/dL (0.7-1.3); GFR 74.7; GLUCOSE 111 mg/dL (70-99); HDLC 60 mg/dL (40-60); LDLC 38 mg/dL (0-100); NON-HDL CHOLESTEROL 46 mg/dL (0-129); POTASSIUM 3.8 mmol/L (3.5-5.1); SODIUM 139 mmol/L (136-145); TRIGLYCERIDES 42 mg/dL (0-150); VLDLC 8 mg/dL (0-40)
[2017-07-13 10:10] LABS: CHOLESTEROL/HDL RATIO 1.8
[2017-07-13 12:14] LABS: NEGATIVE OBC STREP NEG; POSITIVE OBC STREP POS
== END | disposition home or self-care (01) ==
LOC: LAB 09:07
DX: E78.5 Hyperlipidemia, unspecified (principal); J06.9 Acute upper respiratory infection, unspecified
CPT/HCPCS: 36415; 80048; 80061; 86141; 87070; 87804; 87804-59; 87880

== ENCOUNTER → 2017-09-02 | Outpatient (CLI) | payer MEDICARE ==
[2017-09-02 09:45] LABS: ANION GAP 8 (6-14); BLOOD UREA NITROGEN 11 mg/dL (8-26); C-REACTIVE PROTEIN 15.9 mg/L (0-3.3); CALCIUM 8.8 mg/dL (8.5-10.1); CARBON DIOXIDE 28 mmol/L (21-32); CHLORIDE 102 mmol/L (98-107); CREATININE 1.1 mg/dL (0.7-1.3); GFR 82.6; GLUCOSE 101 mg/dL (70-99); POTASSIUM 3.6 mmol/L (3.5-5.1); SODIUM 138 mmol/L (136-145)
[2017-09-02 09:54] LABS: PROSTATE SPECIFIC ANTIGEN 0.06 ng/mL (0.00-4.00)
[2017-09-02 23:16] LABS: HEMOGLOBIN A1C 4.7 % (4.8-5.6)
[2017-09-03 16:12] LABS: INSULIN LEVEL 7.1 uIU/mL (2.6-24.9)
== END | disposition home or self-care (01) ==
LOC: LAB 08:47
DX: Z12.5 Encounter for screening for malignant neoplasm of prostate (principal); I10 Essential (primary) hypertension; E78.2 Mixed hyperlipidemia; M54.17 Radiculopathy, lumbosacral region; J44.9 Chronic obstructive pulmonary disease, unspecified; R73.9 Hyperglycemia, unspecified
CPT/HCPCS: 36415; 80048; 82306; 83036; 83525; 86140; G0103

== ENCOUNTER → 2017-09-19 | Outpatient (CLI) | payer MEDICARE | END | disposition home or self-care (01) | LOC: CT 07:16 | DX: J43.8 Other emphysema (principal); Z72.0 Tobacco use | CPT/HCPCS: 71250 ==

== ENCOUNTER 2018-06-25 12:21 | Inpatient (IN) | payer MEDICARE ==
[~2018-06-25] VITALS: Ht 188 cm; Wt 94.0 kg
[~2018-06-25 12:21] MED LIST changes: +ALPR0.5T PO; +AMIT25TA PO; +CYCL10TA2 PO; +CYCL5TAB PO; +DEXA1TAB PO; +DICY20TA3 PO; +HYDR-3164 PO; -HYDROmorphone 2 MG/ML VIAL IV; -IV RINGERS,LACTATED 1000ML 1,000 ML IV; +Ipratropium/Albuterol Sulfate NEB; -LIDOCAINE 1% PF 2 ML VIAL. ID; +METH10TA2 PO; +MONT10TA6 PO; -MORPHINE SULFATE 2 MG/ML DISP.SYRIN. IV; +ONDA4TAB10 PO; +ONDA4TAB7 PO; +OSEL75CA PO; +OXYC10TA46 PO; +OXYC20TA34 PO; +OXYC30TA3 PO; +POLY17PO29 PO; +PRED-220 PO; +PREG225C PO; -PROCHLORPERAZINE 10 MG/2 ML VIAL. IV; -PROPOFOL 20 ML IV; +TEMA30CA PO; +TIZA4CAP3 PO; +TRAZ-86 PO; +TRAZ150T49 PO; -fentaNYL PF VIAL 100 MCG/2 ML VIAL IV; +trazodone PO
[2018-06-25] MEDS ORDERED: fentaNYL PF VIAL 100 MCG/2 ML VIAL IV ONE (12:45)
--- NOTE | 2018-06-25 12:54 | PHYS DOC ---
Past Medical History Past Medical History: Anxiety, Other Additional Past Medical Histor: chronic back and neck pain Past Surgical History: Other Additional Past Surgical Histo: ortho back and neck Alcohol Use: Occasionally Drug Use: None Adult General Chief Complaint Chief Complaint: KNEE INJURY HPI HPI 62-year-old male presents to ER for complaints of right knee pain and swelling with warmth and radiation of pain to upper and lower right leg. Patient states he had an injury approximately one year ago and has chronic pain however for the past month the pain has increased. He denies any recent falls or injuries. Patient states over the past several days he has had increased warmth and discomfort in right knee and pain in his right calf. He denies any recent travel or past history blood clots in legs or lungs. He is on hydrocodone 10/ 325 for chronic pain d/t previous neck/back surg. He reports he took this med. this morning with minimal relief in sxs. He walks with cane. He denies inability to ambulate but reports he has increased pain while walking. Pt reports he has had low-grade temperature. Review of Systems Review of Systems Constitutional: Denies fever or chills [] Respiratory: Denies cough or shortness of breath [] Cardiovascular: No additional information not addressed in HPI [] GI: Denies abdominal pain, nausea, vomiting, bloody stools or diarrhea [] : Denies urinary sxs Musculoskeletal: Reports rt leg pain just above rt knee into rt lower leg Integument: Denies swelling/warmth in rt lower extremity Neurologic: Denies headache, focal weakness or sensory changes [] Endocrine: Denies polyuria or polydipsia [] All other systems were reviewed and found to be within normal limits, except as documented in this note. Current Medications Current Medications Current Medications Medications (Trade) Dose Ordered Sig/Adina Start Time Stop Time Status Last Admin Dose Admin Fentanyl Citrate (Fentanyl 2ml Vial) 50 mcg 1X ONCE 06/25/18 12:45 06/25/18 12:55 DC 06/25/18 13:55 50 MCG Allergies Allergies Allergies Coded Allergies Type Severity Reaction Last Updated Verified aspirin Allergy Intermediate "stomach spasms" 04/26/17 Yes budesonide Allergy Intermediate 04/26/17 Yes mesalamine Allergy Intermediate 04/22/17 Yes acetaminophen Adverse Reaction Mild stomachache 04/26/17 Yes oxycodone Adverse Reaction Mild stomachache 04/26/17 Yes zolpidem Adverse Reaction Mild sleep walking 04/26/17 Yes Physical Exam Physical Exam Constitutional: Well developed, well nourished, no acute distress, non-toxic appearance. [] HENT: Normocephalic, atraumatic, oropharynx moist, nose normal. [] Eyes: Pupils equal, conjunctiva normal, no discharge. [] Neck: Normal range of motion, no tenderness, supple, no stridor. [] Cardiovascular:Heart rate regular rhythm, no murmur [] Lungs & Thorax: Bilateral breath sounds clear to auscultation. Resp. equal/ nonlabored Abdomen: Bowel sounds normal, soft, no tenderness Skin: Warm, dry, no erythema, no rash. [] Back: No CVA tenderness. [] Extremities: No cyanosis, no clubbing. 2+ bilat. dorsalis pedis/posterior tibial. Swelling rt knee with warmth at joint and area distal/proximal to joint - no deformity. Decreased ROM in rt knee. Tender on palp. rt calf- calf size symmetric bilat. Rt LE NL exam Neurologic: Alert and oriented X 3, normal motor function, normal sensory function, no focal deficits noted. [] Psychologic: Affect normal, judgement normal, mood normal. [] Current Patient Data Vital Signs Vital Signs Date Time Temp Pulse Resp B/P (MAP) Pulse Ox O2 Delivery O2 Flow Rate FiO2 06/25/18 15:00 70 117/68 (84) 95 Room Air 06/25/18 12:34 97.9 20 97.9 Lab Values Laboratory Tests Test 06/25/18 13:50 White Blood Count 6.0 x10^3/uL (4.0-11.0) Red Blood Count 4.78 x10^6/uL (4.30-5.70) Hemoglobin 15.2 g/dL (13.0-17.5) Hematocrit 45.3 % (39.0-53.0) Mean Corpuscular Volume 95 fL (79-100) Mean Corpuscular Hemoglobin 32 pg (25-35) Mean Corpuscular Hemoglobin Concent 34 g/dL (31-37) Red Cell Distribution Width 14.5 % (11.5-14.5) Platelet Count 252 x10^3/uL (140-400) Neutrophils (%) (Auto) 53 % (31-73) Lymphocytes (%) (Auto) 32 % (24-48) Monocytes (%) (Auto) 11 % (0-9) H Eosinophils (%) (Auto) 3 % (0-3) Basophils (%) (Auto) 1 % (0-3) Neutrophils # (Auto) 3.2 x10^3uL (1.8-7.7) Lymphocytes # (Auto) 1.9 x10^3/uL (1.0-4.8) Monocytes # (Auto) 0.7 x10^3/uL (0.0-1.1) Eosinophils # (Auto) 0.2 x10^3/uL (0.0-0.7) Basophils # (Auto) 0.0 x10^3/uL (0.0-0.2) Sodium Level 138 mmol/L (136-145) Potassium Level 3.7 mmol/L (3.5-5.1) Chloride Level 100 mmol/L (98-107) Carbon Dioxide Level 29 mmol/L (21-32) Anion Gap 9 (6-14) Blood Urea Nitrogen 12 mg/dL (8-26) Creatinine 1.0 mg/dL (0.7-1.3) Estimated GFR (Cockcroft-Gault) 91.9 BUN/Creatinine Ratio 12 (6-20) Glucose Level 96 mg/dL (70-99) Lactic Acid Level 0.6 mmol/L (0.4-2.0) Calcium Level 8.7 mg/dL (8.5-10.1) Magnesium Level 1.9 mg/dL (1.8-2.4) Total Bilirubin 0.4 mg/dL (0.2-1.0) Aspartate Amino Transferase (AST) 46 U/L (15-37) H Alanine Aminotransferase (ALT) 79 U/L (16-63) H Alkaline Phosphatase 109 U/L (46-116) Total Protein 8.7 g/dL (6.4-8.2) H Albumin 3.5 g/dL (3.4-5.0) Albumin/Globulin Ratio 0.7 (1.0-1.7) L Laboratory Tests 06/25/18 13:50 Laboratory Tests 06/25/18 13:50 EKG EKG [] Radiology/Procedures Radiology/Procedures PROCEDURE: VENOUS LOWER EXTREMITY RIGHT Right lower extremity venous ultrasound : History: Pain and swelling around right knee Duplex evaluation including grayscale, color flow and spectral Doppler analysis was performed. The femoral and popliteal veins show no filling defects to suggest DVT. The visualized calf veins are unremarkable. There is a joint effusion noted in the suprapatellar bursa. IMPRESSION: 1. There is no sonographic evidence of deep vein thrombosis in the right lower extremity. 2. Right knee joint effusion. Electronically signed by: Kevon Pollock MD (06/25/2018 2:15 PM) [facility] DICTATED and SIGNED BY: KEVON POLLOCK MD DATE: 06/25/18 6691 PROCEDURE: KNEE RIGHT 3V EXAM: RIGHT KNEE, 3 VIEWS. HISTORY: Right knee pain an swelling. COMPARISON: None. FINDINGS: No fractures are identified. There is moderate medial compartmental joint space narrowing. There is mixed sclerosis throughout the medial femoral condyle. Small osteophytes are seen along the medial compartment. Alignment is normal. The lateral view is rotated but there appears to be at least a moderate joint effusion. IMPRESSION: 1. Sclerosis throughout the medial femoral condyle may reflect prior avascular necrosis or developing spontaneous osteonecrosis of the knee. There is no clear articular surface collapse. MRI could further evaluate. 2. Moderate medial compartmental osteoarthritis. Moderate joint effusion. Electronically signed by: Soraya Seay MD (06/25/2018 1:09 PM) [facility] [place] DICTATED and SIGNED BY: LANE SEAY MD DATE: 06/25/18 1309 Course & Med Decision Making Course & Med Decision Making Pertinent Labs and Imaging studies reviewed. (See chart for details) 1505: Spoke with Dr. Lewis, orthopedics secondary set up man and discussed patient's case and right knee x-ray results. Per him patient is okay for home discharge with plans for follow-up in his clinic this week for reevaluation and further care. Went to discussed test results and phone call with orthopedics and found patient to have increased redness and right lower extremity with warmth. Patient voices concerns as far as being discharged home due as he lives alone and d/t recent falls as he has had his right leg "gave out on him". Patient had not mentioned falls during his initial exam with this provider. Patient remains PMS intact in right lower extremity no increase in swelling and right knee. With patient's concerns and increased prednisone right lower extremity Will admit patient to hospitalist services for further care and monitoring. Will consult orthopedics with admit orders. Nader wrap applied to right knee by this provider during this discussion. Following wrap application patient remains neurovascular intact in right lower extremity. With patient's increased redness and right lower leg discussed possible cellulitis as well as plans for IV vancomycin and Zosyn for treatment. Patient was provided IV fentanyl which she reports has improved some of his pain. Will admit to hospitalist services for further care and consult PT for eval. Champion Disclaimer Jaycee Disclaimer This electronic medical record was generated, in whole or in part, using a voice recognition dictation system. Departure Departure Impression: Primary Impression: Cellulitis of right lower extremity Additional Impression: Right knee pain Disposition: ADMITTED INPATIENT Admitting Physician: Kari Cook Condition: STABLE Referrals: AD HUNT MD (PCP) Scripts Sumatriptan Succinate (IMITREX) 50 Mg Tablet 1 TAB PO UD PRN for HEADACHE, #9 TAB 1 Refill Prov: JASMYNE CAICEDO MD 07/01/18 Oxycodone Hcl (OXYCODONE HCL) 5 Mg Capsule 5 MG PO PRN Q6HRS PRN for PAIN, #42 TAB 0 Refills Prov: JASMYNE CAICEDO MD 07/01/18 Cyclobenzaprine Hcl (CYCLOBENZAPRINE HCL) 5 Mg Tablet 1 TAB PO TID PRN for MUSCLE SPASMS, #15 TAB Prov: JASMYNE CAICEDO MD 07/01/18 Problem Qualifiers HARPAL GODOY APRN Jun 25, 2018 12:54
--- NOTE | 2018-06-25 13:12 | RAD ---
EXAM: RIGHT KNEE, 3 VIEWS. HISTORY: Right knee pain an swelling. COMPARISON: None. FINDINGS: No fractures are identified. There is moderate medial compartmental joint space narrowing. There is mixed sclerosis throughout the medial femoral condyle. Small osteophytes are seen along the medial compartment. Alignment is normal. The lateral view is rotated but there appears to be at least a moderate joint effusion. IMPRESSION: 1. Sclerosis throughout the medial femoral condyle may reflect prior avascular necrosis or developing spontaneous osteonecrosis of the knee. There is no clear articular surface collapse. MRI could further evaluate. 2. Moderate medial compartmental osteoarthritis. Moderate joint effusion. Electronically signed by: Soraya Seay MD (06/25/2018 1:09 PM) [facility] [place]
[2018-06-25 14:08] LABS: BASO % 1 % (0-3); EOS # 0.2 x10^3/uL (0.0-0.7); EOS % 3 % (0-3); HEMATOCRIT 45.3 % (39.0-53.0); HEMOGLOBIN 15.2 g/dL (13.0-17.5); LYMPH # 1.9 x10^3/uL (1.0-4.8); LYMPH % 32 % (24-48); MEAN CORPUSCULAR HEMOGLOBIN 32 pg (25-35); MEAN CORPUSCULAR HGB CONC 34 g/dL (31-37); MEAN CORPUSCULAR VOLUME 95 fL (79-100); MONO # 0.7 x10^3/uL (0.0-1.1); MONO % 11 % (0-9); NEUT # 3.2 x10^3uL (1.8-7.7); NEUT % 53 % (31-73); PLATELET COUNT 252 x10^3/uL (140-400); RED BLOOD COUNT 4.78 x10^6/uL (4.30-5.70); RED CELL DISTRIBUTION WIDTH 14.5 % (11.5-14.5)
[2018-06-25 14:17] LABS: CALCIUM 8.7 mg/dL (8.5-10.1); GFR 91.9; POTASSIUM 3.7 mmol/L (3.5-5.1)
--- NOTE | 2018-06-25 14:18 | RAD ---
Right lower extremity venous ultrasound : History: Pain and swelling around right knee Duplex evaluation including grayscale, color flow and spectral Doppler analysis was performed. The femoral and popliteal veins show no filling defects to suggest DVT. The visualized calf veins are unremarkable. There is a joint effusion noted in the suprapatellar bursa. IMPRESSION: 1. There is no sonographic evidence of deep vein thrombosis in the right lower extremity. 2. Right knee joint effusion. Electronically signed by: Kevon Pollock MD (06/25/2018 2:15 PM) [facility]
[2018-06-25 14:23] LABS: ALBUMIN 3.5 g/dL (3.4-5.0); ALBUMIN/GLOBULIN RATIO 0.7 (1.0-1.7); MAGNESIUM 1.9 mg/dL (1.8-2.4); TOTAL BILIRUBIN 0.4 mg/dL (0.2-1.0); TOTAL PROTEIN 8.7 g/dL (6.4-8.2)
[2018-06-25] MEDS ORDERED: VANCOMYCIN 2 GM in IV NORMAL SALINE 500ML BAG 500 ML IV ONE (15:30)
[2018-06-25] MEDS ORDERED: PIPERACILLIN/TAZOBACTAM 3.375 GM in IV NORMAL SALINE 50ML 50 ML IV ONE (15:30)
[2018-06-25 15:50] VITALS: BP 148/87
[2018-06-25] MEDS ORDERED: ONDANSETRON PF 4 MG/2 ML VIAL. IV PRN (16:15)
[2018-06-25] MEDS: fentaNYL PF VIAL 100 MCG/2 ML VIAL IV PRN ×2 (18:00→21:20)
[2018-06-25] MEDS ORDERED: VANCOMYCIN 2 GM in IV NORMAL SALINE 500ML BAG 500 ML IV SCH (19:00)
[2018-06-25 19:17] VITALS: BP 133/63
[2018-06-25] MEDS: VANCOMYCIN PER PHARMACY MC PRN (19:20)
--- NOTE | 2018-06-25 19:20 | NUR ---
Pharmacy Vancomycin Dosing Note S: Consulted to monitor and dose vancomycin started 06/25/18. O: IRAIDA GRADY is a 62 year old M with Cellulitis . Other Antibiotics: ZOSYN LABS: Last BUN: 12 Last Creatinine: 1.0 Creatinine Clearance: 91 mL/min Last WBC: 6.0 Tmax (past 24 hours): 97.9 Vancomycin Dosing: Dosing Weight: Actual Target Trough: 10-20 A: Based on: VANCO dosing guidelines P: 1. Begin Vancomycin 2000mg LOAD dose, then 1250 mg IV q12h 2. Follow up Trough level on 06/27/18 at 0530 3. Pharmacy will continue to monitor, follow and adjust therapy as needed. [facility], [facility], 06/25/18 2600
--- NOTE | 2018-06-25 21:04 | HP ---
ADMIT DATE: 06/25/2018 CHIEF COMPLAINT: Right knee pain. HISTORY OF PRESENT ILLNESS: The patient is a pleasant middle-aged male who presented to the ER with right knee pain. He rates it 10/10. He has associated discomfort with movement that is described as agonizing. He tried taking some [id number] pain meds, but that does not work. There is warmth and radiation of the pain to the lateral thigh. He apparently did injure the knee a year ago. He has had chronic pain, but over the past month, it particularly started flaring up and then last week, it really got super bad. He is on hydrocodone 10 mg, but that is not working much. We did an ultrasound in the ER. He has no DVT. We did an x-ray, which has shown an effusion. PAST MEDICAL HISTORY: Anxiety, chronic pain. PAST SURGICAL HISTORY: Back and neck surgery. ALLERGIES: TYLENOL, ASPIRIN, MESALAMINE, OXYCODONE AND AMBIEN. FAMILY HISTORY: Coronary artery disease. SOCIAL HISTORY: He does not drink, smoke or take drugs. MEDICATIONS: Reviewed, please refer to the MRAD. REVIEW OF SYSTEMS: GENERAL: No history of weight change, weakness or fevers. SKIN: No bruising, hair changes or rashes. EYES: No blurred, double or loss of vision. NOSE AND THROAT: No history of nosebleeds, hoarseness or sore throat. HEART: No history of palpitations, chest pain or shortness of breath on exertion. LUNGS: Denies cough, hemoptysis, wheezing or shortness of breath. GASTROINTESTINAL: Denies changes in appetite, nausea, vomiting, diarrhea or constipation. GENITOURINARY: No history of frequency, urgency, hesitancy or nocturia. NEUROLOGIC: Denies history of numbness, tingling, tremor or weakness. PSYCHIATRIC: No history of panic, anxiety or depression. ENDOCRINE: No history of heat or cold intolerance, polyuria or polydipsia. EXTREMITIES: Denies muscle weakness, joint pain, pain on walking or stiffness. PHYSICAL EXAMINATION: VITAL SIGNS: Temperature is afebrile, pulse 60, respirations 18, blood pressure 140/87. GENERAL: He is alert, cooperative. HEART: Normal S1, S2. LUNGS: Clear to auscultation. ABDOMEN: Soft, positive bowel sounds. EXTREMITIES: The right knee does feel warm. There is an effusion and it is swollen. ENDOCRINE: No thyromegaly. LYMPHATICS: No cervical nodes. HEMATOPOIETIC: No bruising. PSYCHIATRIC: He is stable. LABORATORY DATA: White count is 6. Electrolytes are normal. Liver function tests are little high at 46 and 79. Albumin is normal at 3.5. ASSESSMENT AND PLAN: Right knee effusion, suspect possible septic joint. The patient has been admitted. We will start IV vancomycin, IV Zosyn. Consult Orthopedics. MRI of the knee, p.r.n. narcotics, IV fluids, full code, deep vein thrombosis prophylaxis, home medications. NISHANT BURGESS DO DR: BRENDA/dennis JOB#: [id number] / [id number]
[2018-06-25] MEDS: INDOMETHACIN 25 MG CAPSULE. PO SCH (21:14)
[2018-06-25] MEDS: TEMAZEPAM 15 MG CAPSULE PO PRN (21:19)
[2018-06-25 23:43] VITALS: BP 117/63
[2018-06-26] MEDS: PIPERACILLIN/TAZOBACTAM 3.375 GM in IV NORMAL SALINE 50ML 50 ML IV SCH ×4 (00:25→18:41)
[2018-06-26] MEDS: fentaNYL PF VIAL 100 MCG/2 ML VIAL IV PRN ×7 (00:32→20:25)
[2018-06-26 03:11] VITALS: BP 119/69
[2018-06-26 05:42] LABS: CALCIUM 8.3 mg/dL (8.5-10.1); CREATININE 0.8 mg/dL (0.7-1.3); GFR 118.9; POTASSIUM 3.8 mmol/L (3.5-5.1)
[2018-06-26 05:50] LABS: BASO % 1 % (0-3); EOS # 0.1 x10^3/uL (0.0-0.7); EOS % 3 % (0-3); HEMATOCRIT 42.4 % (39.0-53.0); HEMOGLOBIN 14.2 g/dL (13.0-17.5); LYMPH # 1.9 x10^3/uL (1.0-4.8); LYMPH % 45 % (24-48); MEAN CORPUSCULAR HEMOGLOBIN 32 pg (25-35); MEAN CORPUSCULAR HGB CONC 33 g/dL (31-37); MEAN CORPUSCULAR VOLUME 95 fL (79-100); MONO # 0.5 x10^3/uL (0.0-1.1); MONO % 11 % (0-9); NEUT # 1.7 x10^3uL (1.8-7.7); NEUT % 40 % (31-73); PLATELET COUNT 228 x10^3/uL (140-400); RED BLOOD COUNT 4.46 x10^6/uL (4.30-5.70); RED CELL DISTRIBUTION WIDTH 14.4 % (11.5-14.5); WHITE BLOOD COUNT 4.1 x10^3/uL (4.0-11.0)
[2018-06-26] MEDS: VANCOMYCIN 1.25 GM in IV NORMAL SALINE 250ML 250 ML IV SCH ×2 (06:31→20:31)
[2018-06-26 07:00] VITALS: BP 119/66
[2018-06-26] MEDS ORDERED: NON FORMULARY ITEM ([Ipratropium/Albuterol Sulfate] 3 ML) NEB SCH (08:00)
[2018-06-26] MEDS: IPRATRPIUM/ALBUTEROL 0.5/2.5MG 3 ML NEBU. NEB SCH ×5 (08:00→19:59)
[2018-06-26] MEDS: ALPRAZolam 0.5 MG TABLET PO SCH ×2 (08:20→21:17)
[2018-06-26] MEDS: INDOMETHACIN 25 MG CAPSULE. PO SCH ×2 (08:21→18:41)
[2018-06-26] MEDS: CYCLOBENZAPRINE 10 MG TABLET. PO PRN ×2 (08:22→18:43)
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
[2018-06-26 11:00] VITALS: BP 129/78
--- NOTE | 2018-06-26 12:43 | PDOC ---
PROGRESS NOTES Chief Complaint Chief Complaint Right knee pain secondary to severe ostearthritis most likely Effusion which most likely is inflammatory in nature low suspicion for septic arthritis. History of essential hypertension. Plan: will follow recommendations from orthopedic plan consultant. History of Present Illness History of Present Illness laying in bed in moderate distress secondary to the right knee discomfort. The patient denies fever chills no history of trauma CONCERNS were addressed to the best of my abilities plan of care explained detail Vitals Vitals Vital Signs Date Time Temp Pulse Resp B/P (MAP) Pulse Ox O2 Delivery O2 Flow Rate FiO2 06/26/18 11:00 97.5 68 18 129/78 (95) 99 Room Air 97.5 Physical Exam General: Alert, Oriented X3 Heart: Regular rate Lungs: Clear Abdomen: Soft, No tenderness Extremities: No edema, Normal pulses Labs LABS Laboratory Tests Test 06/25/18 13:50 06/26/18 05:10 White Blood Count 6.0 x10^3/uL (4.0-11.0) 4.1 x10^3/uL (4.0-11.0) Red Blood Count 4.78 x10^6/uL (4.30-5.70) 4.46 x10^6/uL (4.30-5.70) Hemoglobin 15.2 g/dL (13.0-17.5) 14.2 g/dL (13.0-17.5) Hematocrit 45.3 % (39.0-53.0) 42.4 % (39.0-53.0) Mean Corpuscular Volume 95 fL (79-100) 95 fL (79-100) Mean Corpuscular Hemoglobin 32 pg (25-35) 32 pg (25-35) Mean Corpuscular Hemoglobin Concent 34 g/dL (31-37) 33 g/dL (31-37) Red Cell Distribution Width 14.5 % (11.5-14.5) 14.4 % (11.5-14.5) Platelet Count 252 x10^3/uL (140-400) 228 x10^3/uL (140-400) Neutrophils (%) (Auto) 53 % (31-73) 40 % (31-73) Lymphocytes (%) (Auto) 32 % (24-48) 45 % (24-48) Monocytes (%) (Auto) 11 % (0-9) 11 % (0-9) Eosinophils (%) (Auto) 3 % (0-3) 3 % (0-3) Basophils (%) (Auto) 1 % (0-3) 1 % (0-3) Neutrophils # (Auto) 3.2 x10^3uL (1.8-7.7) 1.7 x10^3uL (1.8-7.7) Lymphocytes # (Auto) 1.9 x10^3/uL (1.0-4.8) 1.9 x10^3/uL (1.0-4.8) Monocytes # (Auto) 0.7 x10^3/uL (0.0-1.1) 0.5 x10^3/uL (0.0-1.1) Eosinophils # (Auto) 0.2 x10^3/uL (0.0-0.7) 0.1 x10^3/uL (0.0-0.7) Basophils # (Auto) 0.0 x10^3/uL (0.0-0.2) 0.0 x10^3/uL (0.0-0.2) Sodium Level 138 mmol/L (136-145) 139 mmol/L (136-145) Potassium Level 3.7 mmol/L (3.5-5.1) 3.8 mmol/L (3.5-5.1) Chloride Level 100 mmol/L (98-107) 103 mmol/L (98-107) Carbon Dioxide Level 29 mmol/L (21-32) 27 mmol/L (21-32) Anion Gap 9 (6-14) 9 (6-14) Blood Urea Nitrogen 12 mg/dL (8-26) 9 mg/dL (8-26) Creatinine 1.0 mg/dL (0.7-1.3) 0.8 mg/dL (0.7-1.3) Estimated GFR (Cockcroft-Gault) 91.9 118.9 BUN/Creatinine Ratio 12 (6-20) Glucose Level 96 mg/dL (70-99) 97 mg/dL (70-99) Lactic Acid Level 0.6 mmol/L (0.4-2.0) Calcium Level 8.7 mg/dL (8.5-10.1) 8.3 mg/dL (8.5-10.1) Magnesium Level 1.9 mg/dL (1.8-2.4) Total Bilirubin 0.4 mg/dL (0.2-1.0) Aspartate Amino Transf (AST/SGOT) 46 U/L (15-37) Alanine Aminotransferase (ALT/SGPT) 79 U/L (16-63) Alkaline Phosphatase 109 U/L (46-116) Total Protein 8.7 g/dL (6.4-8.2) Albumin 3.5 g/dL (3.4-5.0) Albumin/Globulin Ratio 0.7 (1.0-1.7) Review of Systems Review of Systems On the pertinent as per history of present illness otherwise 14 point review of system is negative Comment Review of Relevant I have reviewed the following items jet (where applicable) has been applied. Labs Laboratory Tests Test 06/25/18 13:50 06/26/18 05:10 White Blood Count 6.0 x10^3/uL (4.0-11.0) 4.1 x10^3/uL (4.0-11.0) Red Blood Count 4.78 x10^6/uL (4.30-5.70) 4.46 x10^6/uL (4.30-5.70) Hemoglobin 15.2 g/dL (13.0-17.5) 14.2 g/dL (13.0-17.5) Hematocrit 45.3 % (39.0-53.0) 42.4 % (39.0-53.0) Mean Corpuscular Volume 95 fL (79-100) 95 fL (79-100) Mean Corpuscular Hemoglobin 32 pg (25-35) 32 pg (25-35) Mean Corpuscular Hemoglobin Concent 34 g/dL (31-37) 33 g/dL (31-37) Red Cell Distribution Width 14.5 % (11.5-14.5) 14.4 % (11.5-14.5) Platelet Count 252 x10^3/uL (140-400) 228 x10^3/uL (140-400) Neutrophils (%) (Auto) 53 % (31-73) 40 % (31-73) Lymphocytes (%) (Auto) 32 % (24-48) 45 % (24-48) Monocytes (%) (Auto) 11 % (0-9) 11 % (0-9) Eosinophils (%) (Auto) 3 % (0-3) 3 % (0-3) Basophils (%) (Auto) 1 % (0-3) 1 % (0-3) Neutrophils # (Auto) 3.2 x10^3uL (1.8-7.7) 1.7 x10^3uL (1.8-7.7) Lymphocytes # (Auto) 1.9 x10^3/uL (1.0-4.8) 1.9 x10^3/uL (1.0-4.8) Monocytes # (Auto) 0.7 x10^3/uL (0.0-1.1) 0.5 x10^3/uL (0.0-1.1) Eosinophils # (Auto) 0.2 x10^3/uL (0.0-0.7) 0.1 x10^3/uL (0.0-0.7) Basophils # (Auto) 0.0 x10^3/uL (0.0-0.2) 0.0 x10^3/uL (0.0-0.2) Sodium Level 138 mmol/L (136-145) 139 mmol/L (136-145) Potassium Level 3.7 mmol/L (3.5-5.1) 3.8 mmol/L (3.5-5.1) Chloride Level 100 mmol/L (98-107) 103 mmol/L (98-107) Carbon Dioxide Level 29 mmol/L (21-32) 27 mmol/L (21-32) Anion Gap 9 (6-14) 9 (6-14) Blood Urea Nitrogen 12 mg/dL (8-26) 9 mg/dL (8-26) Creatinine 1.0 mg/dL (0.7-1.3) 0.8 mg/dL (0.7-1.3) Estimated GFR (Cockcroft-Gault) 91.9 118.9 BUN/Creatinine Ratio 12 (6-20) Glucose Level 96 mg/dL (70-99) 97 mg/dL (70-99) Lactic Acid Level 0.6 mmol/L (0.4-2.0) Calcium Level 8.7 mg/dL (8.5-10.1) 8.3 mg/dL (8.5-10.1) Magnesium Level 1.9 mg/dL (1.8-2.4) Total Bilirubin 0.4 mg/dL (0.2-1.0) Aspartate Amino Transf (AST/SGOT) 46 U/L (15-37) Alanine Aminotransferase (ALT/SGPT) 79 U/L (16-63) Alkaline Phosphatase 109 U/L (46-116) Total Protein 8.7 g/dL (6.4-8.2) Albumin 3.5 g/dL (3.4-5.0) Albumin/Globulin Ratio 0.7 (1.0-1.7) Laboratory Tests Test 06/25/18 13:50 06/26/18 05:10 White Blood Count 6.0 x10^3/uL (4.0-11.0) 4.1 x10^3/uL (4.0-11.0) Red Blood Count 4.78 x10^6/uL (4.30-5.70) 4.46 x10^6/uL (4.30-5.70) Hemoglobin 15.2 g/dL (13.0-17.5) 14.2 g/dL (13.0-17.5) Hematocrit 45.3 % (39.0-53.0) 42.4 % (39.0-53.0) Mean Corpuscular Volume 95 fL (79-100) 95 fL (79-100) Mean Corpuscular Hemoglobin 32 pg (25-35) 32 pg (25-35) Mean Corpuscular Hemoglobin Concent 34 g/dL (31-37) 33 g/dL (31-37) Red Cell Distribution Width 14.5 % (11.5-14.5) 14.4 % (11.5-14.5) Platelet Count 252 x10^3/uL (140-400) 228 x10^3/uL (140-400) Neutrophils (%) (Auto) 53 % (31-73) 40 % (31-73) Lymphocytes (%) (Auto) 32 % (24-48) 45 % (24-48) Monocytes (%) (Auto) 11 % (0-9) 11 % (0-9) Eosinophils (%) (Auto) 3 % (0-3) 3 % (0-3) Basophils (%) (Auto) 1 % (0-3) 1 % (0-3) Neutrophils # (Auto) 3.2 x10^3uL (1.8-7.7) 1.7 x10^3uL (1.8-7.7) Lymphocytes # (Auto) 1.9 x10^3/uL (1.0-4.8) 1.9 x10^3/uL (1.0-4.8) Monocytes # (Auto) 0.7 x10^3/uL (0.0-1.1) 0.5 x10^3/uL (0.0-1.1) Eosinophils # (Auto) 0.2 x10^3/uL (0.0-0.7) 0.1 x10^3/uL (0.0-0.7) Basophils # (Auto) 0.0 x10^3/uL (0.0-0.2) 0.0 x10^3/uL (0.0-0.2) Sodium Level 138 mmol/L (136-145) 139 mmol/L (136-145) Potassium Level 3.7 mmol/L (3.5-5.1) 3.8 mmol/L (3.5-5.1) Chloride Level 100 mmol/L (98-107) 103 mmol/L (98-107) Carbon Dioxide Level 29 mmol/L (21-32) 27 mmol/L (21-32) Anion Gap 9 (6-14) 9 (6-14) Blood Urea Nitrogen 12 mg/dL (8-26) 9 mg/dL (8-26) Creatinine 1.0 mg/dL (0.7-1.3) 0.8 mg/dL (0.7-1.3) Estimated GFR (Cockcroft-Gault) 91.9 118.9 BUN/Creatinine Ratio 12 (6-20) Glucose Level 96 mg/dL (70-99) 97 mg/dL (70-99) Lactic Acid Level 0.6 mmol/L (0.4-2.0) Calcium Level 8.7 mg/dL (8.5-10.1) 8.3 mg/dL (8.5-10.1) Magnesium Level 1.9 mg/dL (1.8-2.4) Total Bilirubin 0.4 mg/dL (0.2-1.0) Aspartate Amino Transf (AST/SGOT) 46 U/L (15-37) Alanine Aminotransferase (ALT/SGPT) 79 U/L (16-63) Alkaline Phosphatase 109 U/L (46-116) Total Protein 8.7 g/dL (6.4-8.2) Albumin 3.5 g/dL (3.4-5.0) Albumin/Globulin Ratio 0.7 (1.0-1.7) Medications Current Medications Fentanyl Citrate (Fentanyl 2ml Vial) 50 mcg 1X ONCE IV Last administered on 02/03at 13:55; Start 06/25/18 at 12:45; Stop 06/25/18 at 12:55; Status DC Vancomycin HCl 2 gm/Sodium Chloride 500 ml @ 250 mls/hr 1X ONCE IV Last administered on 06/25/18at 18:11; Start 06/25/18 at 15:30; Stop 06/25/18 at 17:29 ; Status DC Piperacillin Sod/ Tazobactam Sod 3.375 gm/Sodium Chloride 50 ml @ 100 mls/hr 1X ONCE IV Last administered on 06/25/18at 18:02; Start 06/25/18 at 15:30; Stop 06/25/18 at 15:59; Status DC Ondansetron HCl (Zofran) 4 mg PRN Q8HRS PRN IV NAUSEA/VOMITING; Start 06/25/18 at 16:15; Stop 06/26/18 at 16:14 Fentanyl Citrate (Fentanyl 2ml Vial) 50 mcg PRN Q2HR PRN IV PAIN Last administered on 06/26/18at 10:13; Start 06/25/18 at 16:15; Stop 06/26/18 at 16:14 Piperacillin Sod/ Tazobactam Sod 3.375 gm/Sodium Chloride 50 ml @ 100 mls/hr Q6HRS IV Last administered on 06/26/18at 05:27; Start 06/26/18 at 00:00 Vancomycin HCl 2 gm/Sodium Chloride 500 ml @ 250 mls/hr Q24H IV ; Start at 19:00; Status UNV Vancomycin HCl (Vanco Per Pharmacy) 1 each PRN DAILY PRN MC SEE COMMENTS Last administered on 06/25/18at 19:20; Start 06/25/18 at 19:15 Vancomycin HCl 1.25 gm/Sodium Chloride 250 ml @ 167 mls/hr Q12H IV Last administered on 06/26/18at 06:31; Start 06/26/18 at 06:00 Vancomycin HCl (Vancomycin Trough Level) 1 each 1X ONCE MC ; Start 06/27/18 at 05:30; Stop 06/27/18 at 05:31 Indomethacin (Indocin) 25 mg BIDWMEALS PO Last administered on 06/26/18at 08:21 ; Start 06/25/18 at 19:30 Temazepam (Restoril) 30 mg PRN QHS PRN PO INSOMNIA Last administered on at 21:19; Start 06/25/18 at 19:15 Alprazolam (Xanax) 0.5 mg BID PO Last administered on 06/26/18at 08:20; Start at 09:00 Cyclobenzaprine HCl (Flexeril) 5 mg PRN TID PRN PO MUSCLE SPASMS Last administered on 06/26/18at 08:22; Start 06/26/18 at 07:45 Non-Formulary Medication ([Ipratropium/ Albuterol Sulfate] ) 3 ml RTQID NEB ; Start 06/26/18 at 08:00; Status UNV Albuterol/ Ipratropium (Duoneb) 3 ml RTQID NEB ; Start 06/26/18 at 08:00 Active Scripts Active [place] 5-325 Tablet (Acetaminophen/Hydrocodone Bitart) 1 Each Tablet 1 Tab PO PRN Q6HRS PRN Cyclobenzaprine Hcl 5 Mg Tablet 1 Tab PO TID PRN [Ipratropium/Albuterol Sulfate] 3 ML Nebu 3 Ml NEB RTQID Reported Xanax (Alprazolam) 0.5 Mg Tablet 1 Tab PO BID Vitals/I & O Vital Sign - Last 24 Hours 06/25/18 06/25/18 06/25/18 06/25/18 14:00 14:30 15:00 15:50 Temp 97.7 97.7 Pulse 70 70 70 65 Resp 18 B/P (MAP) 141/75 (97) 142/79 (100) 117/68 (84) 148/87 (107) Pulse Ox 97 97 95 99 O2 Delivery Room Air Room Air Room Air Room Air 06/25/18 06/25/18 06/25/18 06/25/18 17:38 18:00 19:17 20:00 Temp 97.9 97.9 Pulse 73 Resp 16 B/P (MAP) 133/63 (86) Pulse Ox 99 99 O2 Delivery Room Air Room Air Room Air Room Air 06/25/18 06/25/18 06/26/18 06/26/18 21:20 23:43 00:32 02:33 Temp 97.7 97.7 Pulse 69 Resp 17 B/P (MAP) 117/63 (81) Pulse Ox 98 98 98 O2 Delivery Room Air Room Air Room Air Room Air 06/26/18 06/26/18 06/26/18 06/26/18 03:11 05:26 06:00 07:00 Temp 97.2 97.6 97.2 97.6 Pulse 72 63 Resp 16 18 B/P (MAP) 119/69 (86) 119/66 (83) Pulse Ox 95 95 95 98 O2 Delivery Room Air Room Air Room Air Room Air 06/26/18 06/26/18 06/26/18 08:23 10:13 11:00 Temp 97.5 97.5 Pulse 68 Resp 18 B/P (MAP) 129/78 (95) Pulse Ox 99 O2 Delivery Room Air Room Air Room Air Intake and Output 06/25/18 06/25/18 06/26/18 14:59 22:59 06:59 Intake Total 350 ml 300 ml Output Total 500 ml Balance 350 ml -200 ml ADITHYA HUNTER MD Jun 26, 2018 12:43
[2018-06-26] MEDS: VANCOMYCIN PER PHARMACY MC PRN (14:30)
[2018-06-26 15:00] VITALS: BP 115/65
[2018-06-26] MEDS ORDERED: MAGNESIUM HYDROXIDE 2,400 MG/30 ML ORAL.SUSP. PO PRN (18:30)
[2018-06-26] MEDS ORDERED: oxyCODONE/APAP 5/325 1 TAB TABLET PO PRN (18:30)
[2018-06-26 19:00] VITALS: BP 115/72
[2018-06-26] MEDS: LACTOBACILLUS RHAMNOSUS GG 1 CAPSULE. PO SCH (21:17)
[2018-06-26] MEDS: oxyCODONE/APAP 10/325 1 TAB TABLET PO PRN (21:17)
[2018-06-26 23:00] VITALS: BP 123/51
[2018-06-27] MEDS: PIPERACILLIN/TAZOBACTAM 3.375 GM in IV NORMAL SALINE 50ML 50 ML IV SCH ×4 (00:21→17:37)
[2018-06-27] MEDS: TEMAZEPAM 15 MG CAPSULE PO PRN ×2 (00:28→21:30)
[2018-06-27] MEDS: fentaNYL PF VIAL 100 MCG/2 ML VIAL IV PRN ×2 (00:29→03:45)
[2018-06-27 03:20] VITALS: BP 104/55
[2018-06-27 06:01] LABS: VANC TR 13.8 mcg/mL (10.0-20.0)
[2018-06-27] MEDS: VANCOMYCIN PER PHARMACY MC PRN (06:37)
--- NOTE | 2018-06-27 06:39 | NUR ---
Pharmacy Vancomycin Dosing Note S: Consulted to monitor and dose vancomycin started 06/25/18. O: IRAIDA GRADY is a 62 year old M with Cellulitis, possible septic arthitis . Other Antibiotics: ZOSYN 3.375G IV Q6HRS LABS: Last BUN: 9 Last Creatinine: 0.8 Creatinine Clearance: > 100 mL/min Last WBC: 4.1 Last Procalcitonin: - Tmax (past 24 hours): 97.6 Microbiology: BLOOD CX NGTD I/O: 650/500 Drug Levels: Last Trough level: 13.8 on 06/27/18 at 0525 Last dose given 06/26/18 at 0631 Vancomycin Dosing: Dosing Weight: Actual Target Trough: 10-20 A: Based on: Trough, Updated Actual Wt and CrCl P: 1. 06/27/18 Continue Vancomycin 1250 mg IV q12h 2. Follow up Trough level in 5 to 7 days as needed 3. Pharmacy will continue to monitor, follow and adjust therapy as needed. DEMIAN OLIVARES RPH, 06/27/18 0639 Signed: 06/27/18 at 0641 by DEMIAN OLIVARES RPH PHA
[2018-06-27] MEDS: VANCOMYCIN 1.25 GM in IV NORMAL SALINE 250ML 250 ML IV SCH ×2 (06:44→19:14)
[2018-06-27 07:00] VITALS: BP 127/63
[2018-06-27] MEDS ORDERED: methylPREDNISolone ACETATE 80 MG/ML VIAL. INJ ONE (07:00)
[2018-06-27] MEDS ORDERED: LIDOCAINE 1% Multi-Dose 20 ML VIAL. INJ ONE (07:00)
[2018-06-27] MEDS: IPRATRPIUM/ALBUTEROL 0.5/2.5MG 3 ML NEBU. NEB SCH ×4 (07:43→20:00)
[2018-06-27] MEDS: INDOMETHACIN 25 MG CAPSULE. PO SCH (08:10)
[2018-06-27] MEDS: LACTOBACILLUS RHAMNOSUS GG 1 CAPSULE. PO SCH ×2 (08:10→21:28)
[2018-06-27] MEDS: oxyCODONE/APAP 10/325 1 TAB TABLET PO PRN ×3 (08:10→17:36)
[2018-06-27] MEDS: ALPRAZolam 0.5 MG TABLET PO SCH ×2 (08:11→21:28)
--- NOTE | 2018-06-27 08:38 | NUR ---
SW following pt for anticipated dc needs. Chart reviewed. Pt lives at home alone. Pt was evaluated by PT and does not have skilled needs. No SW needs noted at this time. Will continue to follow.
--- NOTE | 2018-06-27 09:40 | PDOC ---
ORTHO PROGRESS NOTES Subjective No change in his complaints. Vitals Vital Signs Date Time Temp Pulse Resp B/P (MAP) Pulse Ox O2 Delivery O2 Flow Rate FiO2 06/27/18 08:10 Room Air 06/27/18 07:00 97.5 72 18 127/63 (84) 97 97.5 Labs Laboratory Tests Test 06/25/18 13:50 06/26/18 05:10 06/27/18 05:25 White Blood Count 6.0 x10^3/uL (4.0-11.0) 4.1 x10^3/uL (4.0-11.0) Red Blood Count 4.78 x10^6/uL (4.30-5.70) 4.46 x10^6/uL (4.30-5.70) Hemoglobin 15.2 g/dL (13.0-17.5) 14.2 g/dL (13.0-17.5) Hematocrit 45.3 % (39.0-53.0) 42.4 % (39.0-53.0) Mean Corpuscular Volume 95 fL (79-100) 95 fL (79-100) Mean Corpuscular Hemoglobin 32 pg (25-35) 32 pg (25-35) Mean Corpuscular Hemoglobin Concent 34 g/dL (31-37) 33 g/dL (31-37) Red Cell Distribution Width 14.5 % (11.5-14.5) 14.4 % (11.5-14.5) Platelet Count 252 x10^3/uL (140-400) 228 x10^3/uL (140-400) Neutrophils (%) (Auto) 53 % (31-73) 40 % (31-73) Lymphocytes (%) (Auto) 32 % (24-48) 45 % (24-48) Monocytes (%) (Auto) 11 % (0-9) 11 % (0-9) Eosinophils (%) (Auto) 3 % (0-3) 3 % (0-3) Basophils (%) (Auto) 1 % (0-3) 1 % (0-3) Neutrophils # (Auto) 3.2 x10^3uL (1.8-7.7) 1.7 x10^3uL (1.8-7.7) Lymphocytes # (Auto) 1.9 x10^3/uL (1.0-4.8) 1.9 x10^3/uL (1.0-4.8) Monocytes # (Auto) 0.7 x10^3/uL (0.0-1.1) 0.5 x10^3/uL (0.0-1.1) Eosinophils # (Auto) 0.2 x10^3/uL (0.0-0.7) 0.1 x10^3/uL (0.0-0.7) Basophils # (Auto) 0.0 x10^3/uL (0.0-0.2) 0.0 x10^3/uL (0.0-0.2) Sodium Level 138 mmol/L (136-145) 139 mmol/L (136-145) Potassium Level 3.7 mmol/L (3.5-5.1) 3.8 mmol/L (3.5-5.1) Chloride Level 100 mmol/L (98-107) 103 mmol/L (98-107) Carbon Dioxide Level 29 mmol/L (21-32) 27 mmol/L (21-32) Anion Gap 9 (6-14) 9 (6-14) Blood Urea Nitrogen 12 mg/dL (8-26) 9 mg/dL (8-26) Creatinine 1.0 mg/dL (0.7-1.3) 0.8 mg/dL (0.7-1.3) Estimated GFR (Cockcroft-Gault) 91.9 118.9 BUN/Creatinine Ratio 12 (6-20) Glucose Level 96 mg/dL (70-99) 97 mg/dL (70-99) Lactic Acid Level 0.6 mmol/L (0.4-2.0) Calcium Level 8.7 mg/dL (8.5-10.1) 8.3 mg/dL (8.5-10.1) Magnesium Level 1.9 mg/dL (1.8-2.4) Total Bilirubin 0.4 mg/dL (0.2-1.0) Aspartate Amino Transf (AST/SGOT) 46 U/L (15-37) Alanine Aminotransferase (ALT/SGPT) 79 U/L (16-63) Alkaline Phosphatase 109 U/L (46-116) Total Protein 8.7 g/dL (6.4-8.2) Albumin 3.5 g/dL (3.4-5.0) Albumin/Globulin Ratio 0.7 (1.0-1.7) Vancomycin Level Trough 13.8 mcg/mL (10.0-20.0) Vancomycin Last Dose Date 06/26/18 Vancomycin Last Dose Time 1800 Laboratory Tests Test 06/27/18 05:25 Vancomycin Level Trough 13.8 mcg/mL (10.0-20.0) Vancomycin Last Dose Date 06/26/18 Vancomycin Last Dose Time 1800 Notes He is awake and alert in bed. Neurovascular status unchanged from yesterday. He has an effusion present at his knee. Skin around his knee has remained clear Assessment and Plan After informed consent and a sterile prep over the superolateral knee I injected his knee with 80 mg of Depo-Medrol and local anesthetic through a superolateral portal without complication. The area was cleansed and dried and a sterile dressing was applied. He was counseled as far as what to expect. He can weight-bear as tolerated. Disposition per primary team. PETER VERDUGO II, MD Jun 27, 2018 09:40
[2018-06-27 11:00] VITALS: BP 131/71
[2018-06-27] MEDS: KETOROLAC 30 MG/ML VIAL. IV PRN ×2 (12:45→19:14)
[2018-06-27 15:00] VITALS: BP 137/77
[2018-06-27 19:57] VITALS: BP 133/67
--- NOTE | 2018-06-27 22:08 | PDOC ---
PROGRESS NOTES Chief Complaint Chief Complaint Right knee pain secondary to severe ostearthritis most likely Effusion which most likely is inflammatory in nature low suspicion for septic arthritis. History of essential hypertension. Plan: will follow recommendations from orthopedic systems security consultant. pain management reassess in the am History of Present Illness History of Present Illness Patient laying in bed in moderate distress secondary to the right knee discomfort. Awaiting for orthopedic systems security consultant to do aspiration and steroid injection. The patient denies fever chills no history of trauma CONCERNS were addressed to the best of my abilities plan of care explained detail Vitals Vitals Vital Signs Date Time Temp Pulse Resp B/P (MAP) Pulse Ox O2 Delivery O2 Flow Rate FiO2 06/27/18 20:28 Room Air 06/27/18 19:57 98.0 84 18 133/67 (89) 100 98.0 Physical Exam General: Alert, Oriented X3 Heart: Regular rate Lungs: Clear Abdomen: Soft, No tenderness Extremities: No edema, Normal pulses Labs LABS Laboratory Tests Test 06/27/18 05:25 Vancomycin Level Trough 13.8 mcg/mL (10.0-20.0) Vancomycin Last Dose Date 06/26/18 Vancomycin Last Dose Time 1800 Comment Review of Relevant I have reviewed the following items jet (where applicable) has been applied. Labs Laboratory Tests Test 06/26/18 05:10 06/27/18 05:25 White Blood Count 4.1 x10^3/uL (4.0-11.0) Red Blood Count 4.46 x10^6/uL (4.30-5.70) Hemoglobin 14.2 g/dL (13.0-17.5) Hematocrit 42.4 % (39.0-53.0) Mean Corpuscular Volume 95 fL (79-100) Mean Corpuscular Hemoglobin 32 pg (25-35) Mean Corpuscular Hemoglobin Concent 33 g/dL (31-37) Red Cell Distribution Width 14.4 % (11.5-14.5) Platelet Count 228 x10^3/uL (140-400) Neutrophils (%) (Auto) 40 % (31-73) Lymphocytes (%) (Auto) 45 % (24-48) Monocytes (%) (Auto) 11 % (0-9) Eosinophils (%) (Auto) 3 % (0-3) Basophils (%) (Auto) 1 % (0-3) Neutrophils # (Auto) 1.7 x10^3uL (1.8-7.7) Lymphocytes # (Auto) 1.9 x10^3/uL (1.0-4.8) Monocytes # (Auto) 0.5 x10^3/uL (0.0-1.1) Eosinophils # (Auto) 0.1 x10^3/uL (0.0-0.7) Basophils # (Auto) 0.0 x10^3/uL (0.0-0.2) Sodium Level 139 mmol/L (136-145) Potassium Level 3.8 mmol/L (3.5-5.1) Chloride Level 103 mmol/L (98-107) Carbon Dioxide Level 27 mmol/L (21-32) Anion Gap 9 (6-14) Blood Urea Nitrogen 9 mg/dL (8-26) Creatinine 0.8 mg/dL (0.7-1.3) Estimated GFR (Cockcroft-Gault) 118.9 Glucose Level 97 mg/dL (70-99) Calcium Level 8.3 mg/dL (8.5-10.1) Vancomycin Level Trough 13.8 mcg/mL (10.0-20.0) Vancomycin Last Dose Date 06/26/18 Vancomycin Last Dose Time 1800 Laboratory Tests Test 06/27/18 05:25 Vancomycin Level Trough 13.8 mcg/mL (10.0-20.0) Vancomycin Last Dose Date 06/26/18 Vancomycin Last Dose Time 1800 Microbiology 06/25/18 Blood Culture - Preliminary, Resulted NO GROWTH AFTER 1 DAY Medications Current Medications Fentanyl Citrate (Fentanyl 2ml Vial) 50 mcg 1X ONCE IV Last administered on 02/03at 13:55; Start 06/25/18 at 12:45; Stop 06/25/18 at 12:55; Status DC Vancomycin HCl 2 gm/Sodium Chloride 500 ml @ 250 mls/hr 1X ONCE IV Last administered on 06/25/18at 18:11; Start 06/25/18 at 15:30; Stop 06/25/18 at 17:29 ; Status DC Piperacillin Sod/ Tazobactam Sod 3.375 gm/Sodium Chloride 50 ml @ 100 mls/hr 1X ONCE IV Last administered on 06/25/18at 18:02; Start 06/25/18 at 15:30; Stop 06/25/18 at 15:59; Status DC Ondansetron HCl (Zofran) 4 mg PRN Q8HRS PRN IV NAUSEA/VOMITING; Start 06/25/18 at 16:15; Stop 06/26/18 at 16:14; Status DC Fentanyl Citrate (Fentanyl 2ml Vial) 50 mcg PRN Q2HR PRN IV PAIN Last administered on 06/26/18 15:57; Start 06/25/18 at 16:15; Stop 06/26/18 at 16:14 ; Status DC Piperacillin Sod/ Tazobactam Sod 3.375 gm/Sodium Chloride 50 ml @ 100 mls/hr Q6HRS IV Last administered on 06/27/18 17:37; Start 06/26/18 at 00:00 Vancomycin HCl 2 gm/Sodium Chloride 500 ml @ 250 mls/hr Q24H IV ; Start at 19:00; Status UNV Vancomycin HCl (Vanco Per Pharmacy) 1 each PRN DAILY PRN MC SEE COMMENTS Last administered on 06/27/18at 06:37; Start 06/25/18 at 19:15 Vancomycin HCl 1.25 gm/Sodium Chloride 250 ml @ 167 mls/hr Q12H IV Last administered on 06/27/18 19:14; Start 06/26/18 at 06:00 Vancomycin HCl (Vancomycin Trough Level) 1 each 1X ONCE MC Last administered on 06/27/18 05:30; Start 06/27/18 at 05:30; Stop 06/27/18 at 05:31; Status DC Indomethacin (Indocin) 25 mg BIDWMEALS PO Last administered on 06/27/18at 08:10 ; Start 06/25/18 at 19:30; Stop 06/27/18 at 09:09; Status DC Temazepam (Restoril) 30 mg PRN QHS PRN PO INSOMNIA Last administered on 21:30; Start 06/25/18 at 19:15 Alprazolam (Xanax) 0.5 mg BID PO Last administered on 06/27/18 21:28; Start at 09:00 Cyclobenzaprine HCl (Flexeril) 5 mg PRN TID PRN PO MUSCLE SPASMS Last administered on 06/26/18at 18:43; Start 06/26/18 at 07:45 Non-Formulary Medication ([Ipratropium/ Albuterol Sulfate] ) 3 ml RTQID NEB ; Start 06/26/18 at 08:00; Status UNV Albuterol/ Ipratropium (Duoneb) 3 ml RTQID NEB Last administered on 06/27/18at 15:48; Start 06/26/18 at 08:00 Methylprednisolone Acetate (DEPO-Medrol 80MG VIAL) 80 mg 1X ONCE INJ Last administered on 06/27/18at 07:00; Start 06/27/18 at 07:00; Stop 06/27/18 at 07:01 ; Status DC Lidocaine HCl (Lidocaine 1% 20ml Vial) 20 ml 1X ONCE INJ Last administered on 06/27/18at 07:00; Start 06/27/18 at 07:00; Stop 06/27/18 at 07:01; Status DC Lactobacillus Rhamnosus (Culturelle) 1 cap BID PO Last administered on at 21:28; Start 06/26/18 at 21:00 Oxycodone/ Acetaminophen (Percocet 5/325) 1 tab PRN Q4HRS PRN PO MILD PAIN; Start 06/26/18 at 18:30 Oxycodone/ Acetaminophen (Percocet 10/325) 1 tab PRN Q4HRS PRN PO MODERATE- SEVERE PAIN Last administered on 06/27/18at 17:36; Start 06/26/18 at 18:30 Fentanyl Citrate (Fentanyl 2ml Vial) 50 mcg PRN Q2HR PRN IV PAIN Last administered on 06/27/18at 03:45; Start 06/26/18 at 18:30; Stop 06/27/18 at 09:09 ; Status DC Magnesium Hydroxide (Milk Of Magnesia) 2,400 mg PRN DAILY PRN PO CONSTIPATION; Start 06/26/18 at 18:30 Ketorolac Tromethamine (Toradol 30mg Vial) 30 mg PRN Q6HRS PRN IV PAIN MILD Last administered on 06/27/18at 19:14; Start 06/27/18 at 09:15; Stop 07/02/18 at 09:14 Active Scripts Active Hilton 5-325 Tablet (Acetaminophen/Hydrocodone Bitart) 1 Each Tablet 1 Tab PO PRN Q6HRS PRN Cyclobenzaprine Hcl 5 Mg Tablet 1 Tab PO TID PRN [Ipratropium/Albuterol Sulfate] 3 ML Nebu 3 Ml NEB RTQID Reported Xanax (Alprazolam) 0.5 Mg Tablet 1 Tab PO BID Vitals/I & O Vital Sign - Last 24 Hours 06/26/18 06/27/18 06/27/18 06/27/18 23:00 03:20 07:00 08:00 Temp 98.1 98.4 97.5 98.1 98.4 97.5 Pulse 77 70 72 Resp 18 18 18 B/P (MAP) 123/51 (75) 104/55 (71) 127/63 (84) Pulse Ox 96 98 97 O2 Delivery Room Air Room Air Room Air Room Air 06/27/18 06/27/18 06/27/18 06/27/18 08:10 11:00 11:24 12:46 Temp 97.7 97.7 Pulse 72 Resp 18 B/P (MAP) 131/71 (91) Pulse Ox 98 97 O2 Delivery Room Air Room Air Room Air Room Air 06/27/18 06/27/18 06/27/18 06/27/18 15:00 15:49 17:36 18:36 Temp 97.5 97.5 Pulse 72 Resp 18 B/P (MAP) 137/77 (97) Pulse Ox 98 97 O2 Delivery Room Air Room Air Room Air Room Air 06/27/18 06/27/18 19:57 20:28 Temp 98.0 98.0 Pulse 84 Resp 18 B/P (MAP) 133/67 (89) Pulse Ox 100 O2 Delivery Room Air Room Air Intake and Output 06/26/18 06/26/18 06/27/18 15:00 23:00 07:00 Intake Total 240 ml 680 ml Balance 240 ml 680 ml ADITHYA HUNTER MD Jun 27, 2018 22:08
[2018-06-27 23:26] VITALS: BP 136/65
[2018-06-28] MEDS: PIPERACILLIN/TAZOBACTAM 3.375 GM in IV NORMAL SALINE 50ML 50 ML IV SCH ×5 (00:01→23:26)
[2018-06-28] MEDS: KETOROLAC 30 MG/ML VIAL. IV PRN (02:49)
[2018-06-28 03:18] VITALS: BP 139/57
[2018-06-28 04:51] LABS: CREATININE 2.2 mg/dL (0.7-1.3)
[2018-06-28] MEDS: VANCOMYCIN 1.25 GM in IV NORMAL SALINE 250ML 250 ML IV SCH (06:26)
[2018-06-28 07:00] VITALS: BP 155/80
[2018-06-28] MEDS: IPRATRPIUM/ALBUTEROL 0.5/2.5MG 3 ML NEBU. NEB SCH (08:04)
[2018-06-28] MEDS: ALPRAZolam 0.5 MG TABLET PO SCH ×2 (09:03→20:17)
[2018-06-28] MEDS: LACTOBACILLUS RHAMNOSUS GG 1 CAPSULE. PO SCH ×2 (09:03→20:17)
[2018-06-28] MEDS: CYCLOBENZAPRINE 10 MG TABLET. PO PRN (09:06)
[2018-06-28] MEDS ORDERED: ALBUTEROL SULFATE 2.5 MG/3 ML NEBU. NEB PRN (09:15)
[2018-06-28] MEDS ORDERED: fentaNYL PF VIAL 100 MCG/2 ML VIAL IV ONE (09:45)
[2018-06-28 11:00] VITALS: BP 141/75
--- NOTE | 2018-06-28 11:06 | PDOC ---
PROGRESS NOTES Chief Complaint Chief Complaint Right knee pain secondary to severe ostearthritis most likely Effusion which most likely is inflammatory in nature low suspicion for septic arthritis. History of essential hypertension. will follow recommendations from orthopedic residential solar consultant. pain management reassess in the am History of Present Illness History of Present Illness was sleepign after pain meds given right knee wrapped with ANGELITO pain is limtied, complained of headache overnight, thinks it is from lortab Awaiting for orthopedic residential solar consultant to do aspiration and steroid injection. Vitals Vitals Vital Signs Date Time Temp Pulse Resp B/P (MAP) Pulse Ox O2 Delivery O2 Flow Rate FiO2 06/28/18 10:00 18 Room Air 06/28/18 08:04 97 06/28/18 07:00 98.0 60 155/80 (105) 98.0 Physical Exam General: Alert, Oriented X3, No acute distress Heart: Regular rate Lungs: Clear Abdomen: Soft, No tenderness Extremities: No cyanosis, No edema, Normal pulses Skin: No rashes Labs LABS Laboratory Tests Test 06/28/18 03:45 Blood Urea Nitrogen 16 mg/dL (8-26) Creatinine 2.2 mg/dL (0.7-1.3) Estimated GFR (Cockcroft-Gault) 37.0 Procalcitonin < 0.10 ng/mL (0.00-0.10) Review of Systems Review of Systems Severe knee pain is better, had headache last night, had normal stool, could not sleep due to pain Assessment and Plan Assessmemt and Plan change pain meds Comment Review of Relevant I have reviewed the following items jet (where applicable) has been applied. Labs Laboratory Tests Test 06/27/18 05:25 06/28/18 03:45 Vancomycin Level Trough 13.8 mcg/mL (10.0-20.0) Vancomycin Last Dose Date 06/26/18 Vancomycin Last Dose Time 1800 Blood Urea Nitrogen 16 mg/dL (8-26) Creatinine 2.2 mg/dL (0.7-1.3) Estimated GFR (Cockcroft-Gault) 37.0 Procalcitonin < 0.10 ng/mL (0.00-0.10) Laboratory Tests Test 06/28/18 03:45 Blood Urea Nitrogen 16 mg/dL (8-26) Creatinine 2.2 mg/dL (0.7-1.3) Estimated GFR (Cockcroft-Gault) 37.0 Procalcitonin < 0.10 ng/mL (0.00-0.10) Microbiology 06/25/18 Blood Culture - Preliminary, Resulted NO GROWTH AFTER 2 DAYS Medications Current Medications Fentanyl Citrate (Fentanyl 2ml Vial) 50 mcg 1X ONCE IV Last administered on 02/03at 13:55; Start 06/25/18 at 12:45; Stop 06/25/18 at 12:55; Status DC Vancomycin HCl 2 gm/Sodium Chloride 500 ml @ 250 mls/hr 1X ONCE IV Last administered on 06/25/18at 18:11; Start 06/25/18 at 15:30; Stop 06/25/18 at 17:29 ; Status DC Piperacillin Sod/ Tazobactam Sod 3.375 gm/Sodium Chloride 50 ml @ 100 mls/hr 1X ONCE IV Last administered on 06/25/18at 18:02; Start 06/25/18 at 15:30; Stop 06/25/18 at 15:59; Status DC Ondansetron HCl (Zofran) 4 mg PRN Q8HRS PRN IV NAUSEA/VOMITING; Start 06/25/18 at 16:15; Stop 06/26/18 at 16:14; Status DC Fentanyl Citrate (Fentanyl 2ml Vial) 50 mcg PRN Q2HR PRN IV PAIN Last administered on 06/26/18at 15:57; Start 06/25/18 at 16:15; Stop 06/26/18 at 16:14 ; Status DC Piperacillin Sod/ Tazobactam Sod 3.375 gm/Sodium Chloride 50 ml @ 100 mls/hr Q6HRS IV Last administered on 06/28/18at 05:35; Start 06/26/18 at 00:00 Vancomycin HCl 2 gm/Sodium Chloride 500 ml @ 250 mls/hr Q24H IV ; Start at 19:00; Status UNV Vancomycin HCl (Vanco Per Pharmacy) 1 each PRN DAILY PRN MC SEE COMMENTS Last administered on 06/27/18at 06:37; Start 06/25/18 at 19:15 Vancomycin HCl 1.25 gm/Sodium Chloride 250 ml @ 167 mls/hr Q12H IV Last administered on 06/28/18at 06:26; Start 06/26/18 at 06:00 Vancomycin HCl (Vancomycin Trough Level) 1 each 1X ONCE MC Last administered on 06/27/18 05:30; Start 06/27/18 at 05:30; Stop 06/27/18 at 05:31; Status DC Indomethacin (Indocin) 25 mg BIDWMEALS PO Last administered on 06/27/18 08:10 ; Start 06/25/18 at 19:30; Stop 06/27/18 at 09:09; Status DC Temazepam (Restoril) 30 mg PRN QHS PRN PO INSOMNIA Last administered on 21:30; Start 06/25/18 at 19:15 Alprazolam (Xanax) 0.5 mg BID PO Last administered on 06/28/18 09:03; Start at 09:00 Cyclobenzaprine HCl (Flexeril) 5 mg PRN TID PRN PO MUSCLE SPASMS Last administered on 06/28/18 09:06; Start 06/26/18 at 07:45 Non-Formulary Medication ([Ipratropium/ Albuterol Sulfate] ) 3 ml RTQID NEB ; Start 06/26/18 at 08:00; Status UNV Albuterol/ Ipratropium (Duoneb) 3 ml RTQID NEB Last administered on 06/27/18at 15:48; Start 06/26/18 at 08:00; Stop 06/28/18 at 09:15; Status DC Methylprednisolone Acetate (DEPO-Medrol 80MG VIAL) 80 mg 1X ONCE INJ Last administered on 06/27/18 07:00; Start 06/27/18 at 07:00; Stop 06/27/18 at 07:01 ; Status DC Lidocaine HCl (Lidocaine 1% 20ml Vial) 20 ml 1X ONCE INJ Last administered on 06/27/18 07:00; Start 06/27/18 at 07:00; Stop 06/27/18 at 07:01; Status DC Lactobacillus Rhamnosus (Culturelle) 1 cap BID PO Last administered on 09:03; Start 06/26/18 at 21:00 Oxycodone/ Acetaminophen (Percocet 5/325) 1 tab PRN Q4HRS PRN PO MILD PAIN; Start 06/26/18 at 18:30 Oxycodone/ Acetaminophen (Percocet 10/325) 1 tab PRN Q4HRS PRN PO MODERATE- SEVERE PAIN Last administered on 06/27/18at 17:36; Start 06/26/18 at 18:30 Fentanyl Citrate (Fentanyl 2ml Vial) 50 mcg PRN Q2HR PRN IV PAIN Last administered on 06/27/18at 03:45; Start 06/26/18 at 18:30; Stop 06/27/18 at 09:09 ; Status DC Magnesium Hydroxide (Milk Of Magnesia) 2,400 mg PRN DAILY PRN PO CONSTIPATION; Start 06/26/18 at 18:30 Ketorolac Tromethamine (Toradol 30mg Vial) 30 mg PRN Q6HRS PRN IV PAIN MILD Last administered on 06/28/18at 02:49; Start 06/27/18 at 09:15; Stop 06/28/18 at 09:43; Status DC Albuterol Sulfate (Ventolin Neb Soln) 2.5 mg PRN Q4HRS PRN NEB SHORTNESS OF BREATH; Start 06/28/18 at 09:15 Fentanyl Citrate (Fentanyl 2ml Vial) 75 mcg 1X ONCE IV Last administered on at 10:00; Start 06/28/18 at 09:45; Stop 06/28/18 at 09:47; Status DC Fentanyl Citrate (Fentanyl 2ml Vial) 50 mcg PRN Q2HR PRN IV PAIN; Start at 09:45 Active Scripts Active [place] 5-325 Tablet (Acetaminophen/Hydrocodone Bitart) 1 Each Tablet 1 Tab PO PRN Q6HRS PRN Cyclobenzaprine Hcl 5 Mg Tablet 1 Tab PO TID PRN [Ipratropium/Albuterol Sulfate] 3 ML Nebu 3 Ml NEB RTQID Reported Xanax (Alprazolam) 0.5 Mg Tablet 1 Tab PO BID Vitals/I & O Vital Sign - Last 24 Hours 06/27/18 06/27/18 06/27/18 06/27/18 11:24 12:46 15:00 15:49 Temp 97.5 97.5 Pulse 72 Resp 18 B/P (MAP) 137/77 (97) Pulse Ox 97 98 97 O2 Delivery Room Air Room Air Room Air Room Air 06/27/18 06/27/18 06/27/18 06/27/18 17:36 18:36 19:57 20:28 Temp 98.0 98.0 Pulse 84 Resp 18 B/P (MAP) 133/67 (89) Pulse Ox 100 O2 Delivery Room Air Room Air Room Air Room Air 06/27/18 06/28/18 06/28/18 06/28/18 23:26 03:18 07:00 08:04 Temp 98.0 97.7 98.0 98.0 97.7 98.0 Pulse 71 65 60 Resp 17 16 18 B/P (MAP) 136/65 (88) 139/57 (84) 155/80 (105) Pulse Ox 100 97 97 97 O2 Delivery Room Air Room Air Room Air Room Air 06/28/18 10:00 Resp 18 O2 Delivery Room Air Intake and Output 06/27/18 06/27/18 06/28/18 15:00 23:00 07:00 Intake Total 530 ml 890 ml 950 ml Balance 530 ml 890 ml 950 ml JASMYNE CAICEDO MD Jun 28, 2018 11:06
[2018-06-28] MEDS: fentaNYL PF VIAL 100 MCG/2 ML VIAL IV PRN ×4 (12:33→22:33)
[2018-06-28 15:00] VITALS: BP 147/79
[2018-06-28] MEDS: IV NORMAL SALINE 1000ML BAG 1,000 ML IV SCH (16:43)
[2018-06-28] MEDS ORDERED: BUTALB/APAP/CAFEIN 50/325/40MG TABLET. PO PRN (19:00)
--- NOTE | 2018-06-28 19:39 | NUR ---
Patient complained of diffuse headache, 10/10 intermittent for 2 days. It was relieved by ketorolac. Fentanyl provides partial relief. Assessment: No focal neuro deficits, pupils [address] Bolanos at 1900, orders received;will continue to monitor patient.
[2018-06-28 19:40] VITALS: BP 150/88
[2018-06-28] MEDS: SUMAtriptan SUCCINATE 25 MG TABLET PO PRN (19:52)
[2018-06-28] MEDS: TEMAZEPAM 15 MG CAPSULE PO PRN (21:38)
[2018-06-28 23:03] VITALS: BP 169/93
[2018-06-29] MEDS: IV NORMAL SALINE 1000ML BAG 1,000 ML IV SCH ×3 (02:00→21:46)
[2018-06-29 03:09] VITALS: BP 139/63
[2018-06-29] MEDS: fentaNYL PF VIAL 100 MCG/2 ML VIAL IV PRN ×5 (04:31→20:06)
[2018-06-29] MEDS: PIPERACILLIN/TAZOBACTAM 3.375 GM in IV NORMAL SALINE 50ML 50 ML IV SCH ×2 (05:29→12:48)
[2018-06-29 07:15] VITALS: BP 131/58
[2018-06-29 08:11] LABS: CALCIUM 8.6 mg/dL (8.5-10.1); CREATININE 2.2 mg/dL (0.7-1.3)
[2018-06-29] MEDS: ALPRAZolam 0.5 MG TABLET PO SCH ×2 (08:16→20:07)
[2018-06-29] MEDS: LACTOBACILLUS RHAMNOSUS GG 1 CAPSULE. PO SCH ×2 (08:16→20:06)
[2018-06-29 11:10] VITALS: BP 129/68
--- NOTE | 2018-06-29 12:10 | PDOC ---
PROGRESS NOTES Chief Complaint Chief Complaint Right knee pain secondary to severe ostearthritis most likely Effusion which most likely is inflammatory in nature low suspicion for septic arthritis. History of essential hypertension. will follow recommendations from orthopedic hearing consultant. 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 Vitals Vitals Vital Signs Date Time Temp Pulse Resp B/P (MAP) Pulse Ox O2 Delivery O2 Flow Rate FiO2 06/29/18 11:10 98.6 70 20 129/68 (88) 97 Room Air 98.6 Physical Exam General: Alert, Oriented X3, No acute distress Heart: Regular rate Lungs: Clear Abdomen: Soft, No tenderness Extremities: No cyanosis, No edema, Normal pulses Skin: No rashes Labs LABS Laboratory Tests Test 06/29/18 07:11 Sodium Level 144 mmol/L (136-145) Potassium Level 4.0 mmol/L (3.5-5.1) Chloride Level 110 mmol/L (98-107) Carbon Dioxide Level 22 mmol/L (21-32) Anion Gap 12 (6-14) Blood Urea Nitrogen 22 mg/dL (8-26) Creatinine 2.2 mg/dL (0.7-1.3) Estimated GFR (Cockcroft-Gault) 37.0 Glucose Level 93 mg/dL (70-99) Calcium Level 8.6 mg/dL (8.5-10.1) Review of Systems Review of Systems knee pain, weakness, prior nausea somewhat better, but he is frustrated, Comment Review of Relevant I have reviewed the following items jet (where applicable) has been applied. Labs Laboratory Tests Test 06/28/18 03:45 06/29/18 07:11 Blood Urea Nitrogen 16 mg/dL (8-26) 22 mg/dL (8-26) Creatinine 2.2 mg/dL (0.7-1.3) 2.2 mg/dL (0.7-1.3) Estimated GFR (Cockcroft-Gault) 37.0 37.0 Procalcitonin < 0.10 ng/mL (0.00-0.10) Sodium Level 144 mmol/L (136-145) Potassium Level 4.0 mmol/L (3.5-5.1) Chloride Level 110 mmol/L (98-107) Carbon Dioxide Level 22 mmol/L (21-32) Anion Gap 12 (6-14) Glucose Level 93 mg/dL (70-99) Calcium Level 8.6 mg/dL (8.5-10.1) Laboratory Tests Test 06/29/18 07:11 Sodium Level 144 mmol/L (136-145) Potassium Level 4.0 mmol/L (3.5-5.1) Chloride Level 110 mmol/L (98-107) Carbon Dioxide Level 22 mmol/L (21-32) Anion Gap 12 (6-14) Blood Urea Nitrogen 22 mg/dL (8-26) Creatinine 2.2 mg/dL (0.7-1.3) Estimated GFR (Cockcroft-Gault) 37.0 Glucose Level 93 mg/dL (70-99) Calcium Level 8.6 mg/dL (8.5-10.1) Microbiology 06/25/18 Blood Culture - Preliminary, Resulted NO GROWTH AFTER 3 DAYS Medications Current Medications Fentanyl Citrate (Fentanyl 2ml Vial) 50 mcg 1X ONCE IV Last administered on 02/03at 13:55; Start 06/25/18 at 12:45; Stop 06/25/18 at 12:55; Status DC Vancomycin HCl 2 gm/Sodium Chloride 500 ml @ 250 mls/hr 1X ONCE IV Last administered on 06/25/18at 18:11; Start 06/25/18 at 15:30; Stop 06/25/18 at 17:29 ; Status DC Piperacillin Sod/ Tazobactam Sod 3.375 gm/Sodium Chloride 50 ml @ 100 mls/hr 1X ONCE IV Last administered on 06/25/18at 18:02; Start 06/25/18 at 15:30; Stop 06/25/18 at 15:59; Status DC Ondansetron HCl (Zofran) 4 mg PRN Q8HRS PRN IV NAUSEA/VOMITING; Start 06/25/18 at 16:15; Stop 06/26/18 at 16:14; Status DC Fentanyl Citrate (Fentanyl 2ml Vial) 50 mcg PRN Q2HR PRN IV PAIN Last administered on 06/26/18at 15:57; Start 06/25/18 at 16:15; Stop 06/26/18 at 16:14 ; Status DC Piperacillin Sod/ Tazobactam Sod 3.375 gm/Sodium Chloride 50 ml @ 100 mls/hr Q6HRS IV Last administered on 06/29/18at 05:29; Start 06/26/18 at 00:00 Vancomycin HCl 2 gm/Sodium Chloride 500 ml @ 250 mls/hr Q24H IV ; Start at 19:00; Status UNV Vancomycin HCl (Vanco Per Pharmacy) 1 each PRN DAILY PRN MC SEE COMMENTS Last administered on 06/27/18at 06:37; Start 06/25/18 at 19:15; Stop 06/28/18 at 13:04 ; Status DC Vancomycin HCl 1.25 gm/Sodium Chloride 250 ml @ 167 mls/hr Q12H IV Last administered on 06/28/18 06:26; Start 06/26/18 at 06:00; Stop 06/28/18 at 13:00 ; Status DC Vancomycin HCl (Vancomycin Trough Level) 1 each 1X ONCE MC Last administered on 06/27/18at 05:30; Start 06/27/18 at 05:30; Stop 06/27/18 at 05:31; Status DC Indomethacin (Indocin) 25 mg BIDWMEALS PO Last administered on 06/27/18 08:10 ; Start 06/25/18 at 19:30; Stop 06/27/18 at 09:09; Status DC Temazepam (Restoril) 30 mg PRN QHS PRN PO INSOMNIA Last administered on 21:38; Start 06/25/18 at 19:15 Alprazolam (Xanax) 0.5 mg BID PO Last administered on 06/29/18at 08:16; Start at 09:00 Cyclobenzaprine HCl (Flexeril) 5 mg PRN TID PRN PO MUSCLE SPASMS Last administered on 06/28/18 09:06; Start 06/26/18 at 07:45 Non-Formulary Medication ([Ipratropium/ Albuterol Sulfate] ) 3 ml RTQID NEB ; Start 06/26/18 at 08:00; Status UNV Albuterol/ Ipratropium (Duoneb) 3 ml RTQID NEB Last administered on 06/27/18at 15:48; Start 06/26/18 at 08:00; Stop 06/28/18 at 09:15; Status DC Methylprednisolone Acetate (DEPO-Medrol 80MG VIAL) 80 mg 1X ONCE INJ Last administered on 06/27/18at 07:00; Start 06/27/18 at 07:00; Stop 06/27/18 at 07:01 ; Status DC Lidocaine HCl (Lidocaine 1% 20ml Vial) 20 ml 1X ONCE INJ Last administered on 06/27/18at 07:00; Start 06/27/18 at 07:00; Stop 06/27/18 at 07:01; Status DC Lactobacillus Rhamnosus (Culturelle) 1 cap BID PO Last administered on at 08:16; Start 06/26/18 at 21:00 Oxycodone/ Acetaminophen (Percocet 5/325) 1 tab PRN Q4HRS PRN PO MILD PAIN; Start 06/26/18 at 18:30 Oxycodone/ Acetaminophen (Percocet 10/325) 1 tab PRN Q4HRS PRN PO MODERATE- SEVERE PAIN Last administered on 06/27/18at 17:36; Start 06/26/18 at 18:30 Fentanyl Citrate (Fentanyl 2ml Vial) 50 mcg PRN Q2HR PRN IV PAIN Last administered on 06/27/18at 03:45; Start 06/26/18 at 18:30; Stop 06/27/18 at 09:09 ; Status DC Magnesium Hydroxide (Milk Of Magnesia) 2,400 mg PRN DAILY PRN PO CONSTIPATION; Start 06/26/18 at 18:30 Ketorolac Tromethamine (Toradol 30mg Vial) 30 mg PRN Q6HRS PRN IV PAIN MILD Last administered on 06/28/18at 02:49; Start 06/27/18 at 09:15; Stop 06/28/18 at 09:43; Status DC Albuterol Sulfate (Ventolin Neb Soln) 2.5 mg PRN Q4HRS PRN NEB SHORTNESS OF BREATH; Start 06/28/18 at 09:15 Fentanyl Citrate (Fentanyl 2ml Vial) 75 mcg 1X ONCE IV Last administered on at 10:00; Start 06/28/18 at 09:45; Stop 06/28/18 at 09:47; Status DC Fentanyl Citrate (Fentanyl 2ml Vial) 50 mcg PRN Q2HR PRN IV PAIN Last administered on 06/28/18at 15:55; Start 06/28/18 at 09:45; Stop 06/28/18 at 20:03 ; Status DC Sodium Chloride 1,000 ml @ 100 mls/hr Q10H IV Last administered on 06/29/18at 02:00; Start 06/28/18 at 16:00 Acetaminophen/ Butalbital/ Caffeine (Fioricet) 1 tab PRN Q6HRS PRN PO MIGRAINE HEADACHE; Start 06/28/18 at 19:00 Sumatriptan Succinate (Imitrex) 50 mg PRN Q8HRS PRN PO MIGRAINE HEADACHE Last administered on 06/28/18at 19:52; Start 06/28/18 at 19:00 Fentanyl Citrate (Fentanyl 2ml Vial) 75 mcg PRN Q2HR PRN IV PAIN Last administered on 06/29/18at 08:16; Start 06/28/18 at 20:15 Active Scripts Active [place] 5-325 Tablet (Acetaminophen/Hydrocodone Bitart) 1 Each Tablet 1 Tab PO PRN Q6HRS PRN Cyclobenzaprine Hcl 5 Mg Tablet 1 Tab PO TID PRN [Ipratropium/Albuterol Sulfate] 3 ML Nebu 3 Ml NEB RTQID Reported Xanax (Alprazolam) 0.5 Mg Tablet 1 Tab PO BID Vitals/I & O Vital Sign - Last 24 Hours 06/28/18 06/28/18 06/28/18 06/28/18 12:33 15:00 15:55 16:30 Temp 97.9 97.9 Pulse 66 Resp 16 18 18 18 B/P (MAP) 147/79 (101) Pulse Ox 99 99 99 99 O2 Delivery Room Air Room Air Room Air Room Air 06/28/18 06/28/18 06/28/18 06/28/18 19:40 20:00 20:17 22:33 Temp 97.9 97.9 Pulse 83 Resp 15 16 B/P (MAP) 150/88 (108) Pulse Ox 96 96 96 O2 Delivery Room Air Room Air Room Air Room Air 06/28/18 06/29/18 06/29/18 06/29/18 23:03 03:09 04:31 07:15 Temp 98.3 98.4 98.5 98.3 98.4 98.5 Pulse 78 68 65 Resp 16 18 18 B/P (MAP) 169/93 (118) 139/63 (88) 131/58 (82) Pulse Ox 97 95 95 96 O2 Delivery Room Air Room Air Room Air Room Air 06/29/18 06/29/18 06/29/18 06/29/18 08:00 08:16 09:28 11:10 Temp 98.6 98.6 Pulse 70 Resp 20 B/P (MAP) 129/68 (88) Pulse Ox 96 96 97 O2 Delivery Room Air Room Air Room Air Room Air Intake and Output 06/28/18 06/28/18 06/29/18 14:59 22:59 06:59 Intake Total 480 ml 700 ml 450 ml Balance 480 ml 700 ml 450 ml JASMYNE CAICEDO MD Jun 29, 2018 12:10
--- NOTE | 2018-06-29 12:35 | PDOC2 ---
CONSULT Date of Consult Date of Consult DATE: 06/29/18 TIME: 12:31 Reason for Consult Reason for Consult: MICHELET Referring Physician Referring Physician: [id number] Identification/Chief Complaint Chief Complaint RIGHT KNEE PAIN Source Source: Chart review, Patient History of Present Illness Reason for Visit: THIS IS A 62 YR OLD WITH RIGHT KNEE PAIN AND EFFUSION AND HAS BEEN SEEING ORTHO AND HAS UNDERGONE A DEPO INJECTION. NO CKD NOTED. CR OF 2.2 NOW. PT REPORTS NOTING SOME DECREASE IN UO. NO HX OF CKD. NO OTHER HX. HE HAS BEEN RECEIVING TORADOL FOR HIS KNEE PAIN. NO HX OF DM II OR HTN. HAS BEEN HEMODYNAMICALLY STABLE Past Medical History Pulmonary: COPD CENTRAL NERVOUS SYSTEM: Other GI: Diverticulosis, GI bleed, Hemorrhoids, Other Heme/Onc: No pertinent hx, Cancer Hepatobiliary: No pertinent hx Psych: Anxiety, Depression Musculoskeletal: low back pain, Other Rheumatologic: No pertinent hx Infectious disease: No pertinent hx ENT: No pertinent hx Renal/: No pertinent hx, Prostate Ca., Other Endocrine: No pertinent hx Past Surgical History Past Surgical History: Total hip replacement, Other Family History Family History: Cancer, Diabetes Social History ALCOHOL: none Drugs: None Lives: Alone Current Medications Current Medications Current Medications Fentanyl Citrate (Fentanyl 2ml Vial) 50 mcg 1X ONCE IV Last administered on 02/03at 13:55; Start 06/25/18 at 12:45; Stop 06/25/18 at 12:55; Status DC Vancomycin HCl 2 gm/Sodium Chloride 500 ml @ 250 mls/hr 1X ONCE IV Last administered on 06/25/18at 18:11; Start 06/25/18 at 15:30; Stop 06/25/18 at 17:29 ; Status DC Piperacillin Sod/ Tazobactam Sod 3.375 gm/Sodium Chloride 50 ml @ 100 mls/hr 1X ONCE IV Last administered on 06/25/18at 18:02; Start 06/25/18 at 15:30; Stop 06/25/18 at 15:59; Status DC Ondansetron HCl (Zofran) 4 mg PRN Q8HRS PRN IV NAUSEA/VOMITING; Start 06/25/18 at 16:15; Stop 06/26/18 at 16:14; Status DC Fentanyl Citrate (Fentanyl 2ml Vial) 50 mcg PRN Q2HR PRN IV PAIN Last administered on 06/26/18at 15:57; Start 06/25/18 at 16:15; Stop 06/26/18 at 16:14 ; Status DC Piperacillin Sod/ Tazobactam Sod 3.375 gm/Sodium Chloride 50 ml @ 100 mls/hr Q6HRS IV Last administered on 06/29/18at 05:29; Start 06/26/18 at 00:00 Vancomycin HCl 2 gm/Sodium Chloride 500 ml @ 250 mls/hr Q24H IV ; Start at 19:00; Status UNV Vancomycin HCl (Vanco Per Pharmacy) 1 each PRN DAILY PRN MC SEE COMMENTS Last administered on 06/27/18at 06:37; Start 06/25/18 at 19:15; Stop 06/28/18 at 13:04 ; Status DC Vancomycin HCl 1.25 gm/Sodium Chloride 250 ml @ 167 mls/hr Q12H IV Last administered on 06/28/18at 06:26; Start 06/26/18 at 06:00; Stop 06/28/18 at 13:00 ; Status DC Vancomycin HCl (Vancomycin Trough Level) 1 each 1X ONCE MC Last administered on 06/27/18at 05:30; Start 06/27/18 at 05:30; Stop 06/27/18 at 05:31; Status DC Indomethacin (Indocin) 25 mg BIDWMEALS PO Last administered on 06/27/18at 08:10 ; Start 06/25/18 at 19:30; Stop 06/27/18 at 09:09; Status DC Temazepam (Restoril) 30 mg PRN QHS PRN PO INSOMNIA Last administered on at 21:38; Start 06/25/18 at 19:15 Alprazolam (Xanax) 0.5 mg BID PO Last administered on 06/29/18at 08:16; Start at 09:00 Cyclobenzaprine HCl (Flexeril) 5 mg PRN TID PRN PO MUSCLE SPASMS Last administered on 06/28/18at 09:06; Start 06/26/18 at 07:45 Non-Formulary Medication ([Ipratropium/ Albuterol Sulfate] ) 3 ml RTQID NEB ; Start 06/26/18 at 08:00; Status UNV Albuterol/ Ipratropium (Duoneb) 3 ml RTQID NEB Last administered on 06/27/18at 15:48; Start 06/26/18 at 08:00; Stop 06/28/18 at 09:15; Status DC Methylprednisolone Acetate (DEPO-Medrol 80MG VIAL) 80 mg 1X ONCE INJ Last administered on 06/27/18at 07:00; Start 06/27/18 at 07:00; Stop 06/27/18 at 07:01 ; Status DC Lidocaine HCl (Lidocaine 1% 20ml Vial) 20 ml 1X ONCE INJ Last administered on 06/27/18at 07:00; Start 06/27/18 at 07:00; Stop 06/27/18 at 07:01; Status DC Lactobacillus Rhamnosus (Culturelle) 1 cap BID PO Last administered on at 08:16; Start 06/26/18 at 21:00 Oxycodone/ Acetaminophen (Percocet 5/325) 1 tab PRN Q4HRS PRN PO MILD PAIN; Start 06/26/18 at 18:30 Oxycodone/ Acetaminophen (Percocet 10/325) 1 tab PRN Q4HRS PRN PO MODERATE- SEVERE PAIN Last administered on 06/27/18at 17:36; Start 06/26/18 at 18:30 Fentanyl Citrate (Fentanyl 2ml Vial) 50 mcg PRN Q2HR PRN IV PAIN Last administered on 06/27/18at 03:45; Start 06/26/18 at 18:30; Stop 06/27/18 at 09:09 ; Status DC Magnesium Hydroxide (Milk Of Magnesia) 2,400 mg PRN DAILY PRN PO CONSTIPATION; Start 06/26/18 at 18:30 Ketorolac Tromethamine (Toradol 30mg Vial) 30 mg PRN Q6HRS PRN IV PAIN MILD Last administered on 06/28/18at 02:49; Start 06/27/18 at 09:15; Stop 06/28/18 at 09:43; Status DC Albuterol Sulfate (Ventolin Neb Soln) 2.5 mg PRN Q4HRS PRN NEB SHORTNESS OF BREATH; Start 06/28/18 at 09:15 Fentanyl Citrate (Fentanyl 2ml Vial) 75 mcg 1X ONCE IV Last administered on at 10:00; Start 06/28/18 at 09:45; Stop 06/28/18 at 09:47; Status DC Fentanyl Citrate (Fentanyl 2ml Vial) 50 mcg PRN Q2HR PRN IV PAIN Last administered on 06/28/18at 15:55; Start 06/28/18 at 09:45; Stop 06/28/18 at 20:03 ; Status DC Sodium Chloride 1,000 ml @ 100 mls/hr Q10H IV Last administered on 06/29/18at 02:00; Start 06/28/18 at 16:00 Acetaminophen/ Butalbital/ Caffeine (Fioricet) 1 tab PRN Q6HRS PRN PO MIGRAINE HEADACHE; Start 06/28/18 at 19:00 Sumatriptan Succinate (Imitrex) 50 mg PRN Q8HRS PRN PO MIGRAINE HEADACHE Last administered on 06/28/18at 19:52; Start 06/28/18 at 19:00 Fentanyl Citrate (Fentanyl 2ml Vial) 75 mcg PRN Q2HR PRN IV PAIN Last administered on 06/29/18at 08:16; Start 06/28/18 at 20:15 Active Scripts Active [place] 5-325 Tablet (Acetaminophen/Hydrocodone Bitart) 1 Each Tablet 1 Tab PO PRN Q6HRS PRN Cyclobenzaprine Hcl 5 Mg Tablet 1 Tab PO TID PRN [Ipratropium/Albuterol Sulfate] 3 ML Nebu 3 Ml NEB RTQID Reported Xanax (Alprazolam) 0.5 Mg Tablet 1 Tab PO BID Allergies Allergies: Coded Allergies: aspirin (Verified Allergy, Intermediate, "stomach spasms", 04/26/17) budesonide (Verified Allergy, Intermediate, 04/26/17) mesalamine (Verified Allergy, Intermediate, 04/22/17) acetaminophen (Verified Adverse Reaction, Mild, stomachache, 04/26/17) oxycodone (Verified Adverse Reaction, Mild, stomachache, 04/26/17) zolpidem (Verified Adverse Reaction, Mild, sleep walking, 04/26/17) ROS Review of System FULL ROS DONE AND NEG EXCEPT FOR KNEE AND HIP PAIN Physical Exam General: Alert, Oriented X3, Cooperative, No acute distress HEENT: Atraumatic, PERRLA, EOMI, Mucous membr. moist/pink Lungs: Clear to auscultation, Normal air movement Heart: Regular rate, Normal S1, Normal S2, No murmurs Abdomen: Normal bowel sounds, Soft Extremities: No clubbing, No cyanosis Skin: No breakdown Neuro: Normal speech, Sensation intact, Cranial nerves 3-12 NL Psych/Mental Status: Mental status NL, Mood NL MUSCULOSKELETAL: No joint tenderness, No deformity, Other (RIGHT KNEE EFFUSION) Vitals VITALS Vital Signs Date Time Temp Pulse Resp B/P (MAP) Pulse Ox O2 Delivery O2 Flow Rate FiO2 06/29/18 11:10 98.6 70 20 129/68 (88) 97 Room Air 98.6 Labs Labs Laboratory Tests Test 06/28/18 03:45 06/29/18 07:11 Blood Urea Nitrogen 16 mg/dL (8-26) 22 mg/dL (8-26) Creatinine 2.2 mg/dL (0.7-1.3) 2.2 mg/dL (0.7-1.3) Estimated GFR (Cockcroft-Gault) 37.0 37.0 Procalcitonin < 0.10 ng/mL (0.00-0.10) Sodium Level 144 mmol/L (136-145) Potassium Level 4.0 mmol/L (3.5-5.1) Chloride Level 110 mmol/L (98-107) Carbon Dioxide Level 22 mmol/L (21-32) Anion Gap 12 (6-14) Glucose Level 93 mg/dL (70-99) Calcium Level 8.6 mg/dL (8.5-10.1) Laboratory Tests Test 06/29/18 07:11 Sodium Level 144 mmol/L (136-145) Potassium Level 4.0 mmol/L (3.5-5.1) Chloride Level 110 mmol/L (98-107) Carbon Dioxide Level 22 mmol/L (21-32) Anion Gap 12 (6-14) Blood Urea Nitrogen 22 mg/dL (8-26) Creatinine 2.2 mg/dL (0.7-1.3) Estimated GFR (Cockcroft-Gault) 37.0 Glucose Level 93 mg/dL (70-99) Calcium Level 8.6 mg/dL (8.5-10.1) Assessment/Plan Assessment/Plan IMP RIGHT KNEE EFFUSION MICHELET DUE TO NSAID PLAN HYDRATION RENAL SONO IF RENAL CLEARANCE IS NOT BETTER BY AM WILL FOLLOW EXPECT FULL RENAL RECOVERY COURTNEY MCKEE MD Jun 29, 2018 12:34
--- NOTE | 2018-06-29 13:47 | PDOC ---
Infectious Disease Note Vital Sign Vital Signs Vital Signs Date Time Temp Pulse Resp B/P (MAP) Pulse Ox O2 Delivery O2 Flow Rate FiO2 06/29/18 12:47 97 Room Air 06/29/18 11:10 98.6 70 20 129/68 (88) 98.6 Labs Lab Laboratory Tests Test 06/29/18 07:11 Sodium Level 144 mmol/L (136-145) Potassium Level 4.0 mmol/L (3.5-5.1) Chloride Level 110 mmol/L (98-107) Carbon Dioxide Level 22 mmol/L (21-32) Anion Gap 12 (6-14) Blood Urea Nitrogen 22 mg/dL (8-26) Creatinine 2.2 mg/dL (0.7-1.3) Estimated GFR (Cockcroft-Gault) 37.0 Glucose Level 93 mg/dL (70-99) Calcium Level 8.6 mg/dL (8.5-10.1) Micro Microbiology 06/25/18 Blood Culture - Preliminary, Resulted NO GROWTH AFTER 3 DAYS Objective Assessment pt seen, consult dictated Plan Plan of Care -- FLORENTINO DOYLE MD Jun 29, 2018 13:47
--- NOTE | 2018-06-29 15:06 | PDOC ---
SUBJECTIVE Subjective Right knee pain OBJECTIVE Objective 62 yo male C/O right knee pain with and without wt. bearing.Ortho eval/ treatment underway Vital Signs Vital Signs Date Time Temp Pulse Resp B/P (MAP) Pulse Ox O2 Delivery O2 Flow Rate FiO2 06/29/18 14:13 97 Room Air 06/29/18 12:47 97 Room Air 06/29/18 11:10 98.6 70 20 129/68 (88) 97 Room Air 98.6 06/29/18 08:16 96 Room Air 06/29/18 08:00 Room Air 06/29/18 07:15 98.5 65 18 131/58 (82) 96 Room Air 98.5 06/29/18 04:31 95 Room Air 06/29/18 03:09 98.4 68 18 139/63 (88) 95 Room Air 98.4 06/28/18 23:03 98.3 78 16 169/93 (118) 97 Room Air 98.3 06/28/18 22:33 16 96 Room Air 06/28/18 20:17 96 Room Air 06/28/18 20:00 Room Air 06/28/18 19:40 97.9 83 15 150/88 (108) 96 Room Air 97.9 06/28/18 16:30 18 99 Room Air 06/28/18 15:55 18 99 Room Air I & O Intake and Output 06/29/18 07:00 Intake Total 1630 ml Balance 1630 ml Intake Oral 1630 ml # Voids 5 ASSESSMENT/PLAN Assessment/Plan REC: Change fentanyl IV to 50mcg q 1hr prn Maintain oxycodone 10mg q 4hrs tie layer (as tolerated-on pt.'s allergy list ) Alternatively, change oxycodone to hydrocodone 10mg q 4hrs, or Hydromorphone 4mg q 4hrs COMMENT Lab Laboratory Tests Test 06/29/18 07:11 Sodium Level 144 mmol/L (136-145) Potassium Level 4.0 mmol/L (3.5-5.1) Chloride Level 110 mmol/L (98-107) Carbon Dioxide Level 22 mmol/L (21-32) Anion Gap 12 (6-14) Blood Urea Nitrogen 22 mg/dL (8-26) Creatinine 2.2 mg/dL (0.7-1.3) Estimated GFR (Cockcroft-Gault) 37.0 Glucose Level 93 mg/dL (70-99) Calcium Level 8.6 mg/dL (8.5-10.1) JOHANA FAIR MD Jun 29, 2018 15:06
[2018-06-29 15:15] VITALS: BP 129/71
[2018-06-29] MEDS: SUMAtriptan SUCCINATE 25 MG TABLET PO PRN (15:34)
[2018-06-29 19:57] VITALS: BP 151/72
[2018-06-29] MEDS: TEMAZEPAM 15 MG CAPSULE PO PRN (21:45)
[2018-06-29 23:43] VITALS: BP 137/69
[2018-06-30] MEDS: fentaNYL PF VIAL 100 MCG/2 ML VIAL IV PRN ×6 (02:23→23:00)
[2018-06-30 03:50] VITALS: BP 137/78
--- NOTE | 2018-06-30 04:05 | NUR ---
Pt states refusing to continue with IV fluids, pt states he will finish current bag however does not want additional bags started. Pt states he will go home tomorrow. Pt states he normally does not come to this hospital however it was close and he did not want to suffer with pain until able to get in and see his Physician. Pt states continues with pain in right knee. Pt given prn pain medication for comfort. Pt states current regimen does relieve pain. Will continue with current plan of care.
[2018-06-30 05:35] LABS: CALCIUM 8.5 mg/dL (8.5-10.1); CREATININE 2.2 mg/dL (0.7-1.3); POTASSIUM 3.9 mmol/L (3.5-5.1)
[2018-06-30] MEDS: SUMAtriptan SUCCINATE 25 MG TABLET PO PRN ×2 (05:58→19:42)
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
[2018-06-30 07:00] VITALS: BP 153/74
[2018-06-30] MEDS: LACTOBACILLUS RHAMNOSUS GG 1 CAPSULE. PO SCH ×2 (09:30→19:34)
[2018-06-30] MEDS: ALPRAZolam 0.5 MG TABLET PO SCH ×2 (09:30→19:34)
--- NOTE | 2018-06-30 10:17 | PDOC ---
Infectious Disease Note Subjective Subjective pt is feeling ok, cont knee pain ROS ROS no n/v/d/sob Vital Sign Vital Signs Vital Signs Date Time Temp Pulse Resp B/P (MAP) Pulse Ox O2 Delivery O2 Flow Rate FiO2 06/30/18 09:31 18 96 Room Air 06/30/18 07:00 98.4 67 153/74 (100) 98.4 Physical Exam PHYSICAL EXAM GENERAL: Alert and oriented gentleman, not in distress. VITAL SIGNS: Stable and afebrile. HEENT: NAD. NECK: Supple, no JVP, no lymphadenopathy. LUNGS: Clear. HEART: S1 and S2 regular. ABDOMEN: Benign. EXTREMITIES: No edema or cyanosis. SKIN: Unremarkable. In particular, right knee, it is not red, it is not swollen, there is no appreciable knee fluid. Clinically, there is no open wound. No other signs of infection. NEUROLOGICAL: The patient is alert, awake and appropriate. No focal neurologic deficit. Labs Lab Laboratory Tests Test 06/30/18 04:45 Sodium Level 142 mmol/L (136-145) Potassium Level 3.9 mmol/L (3.5-5.1) Chloride Level 106 mmol/L (98-107) Carbon Dioxide Level 25 mmol/L (21-32) Anion Gap 11 (6-14) Blood Urea Nitrogen 22 mg/dL (8-26) Creatinine 2.2 mg/dL (0.7-1.3) Estimated GFR (Cockcroft-Gault) 37.0 Glucose Level 86 mg/dL (70-99) Calcium Level 8.5 mg/dL (8.5-10.1) Micro Microbiology 06/25/18 Blood Culture - Preliminary, Resulted NO GROWTH AFTER 3 DAYS Objective Assessment 1. Right knee pain from arthritis and it is possible that the patient may have cartilage problem and/or ligament problem. I do not see any signs of infection at least anymore. 2. Acute kidney injury. 3. DJD. Plan Plan of Care off antibiotics supportive care FLORENTINO DOYLE MD Jun 30, 2018 10:17
[2018-06-30 11:00] VITALS: BP 155/78
--- NOTE | 2018-06-30 11:16 | PDOC ---
Renal-Progress Notes Subjective Notes Notes NO NEW COMPLAINTS. STATED HE MAY WANT TO TRANSFER TO [facility] DUE TO PAIN. ON FENTANYL IV PRN History of Present Illness Hx of present illness STABLE Vitals Vitals Vital Signs Date Time Temp Pulse Resp B/P (MAP) Pulse Ox O2 Delivery O2 Flow Rate FiO2 06/30/18 11:00 98.2 69 17 155/78 (103) 97 Room Air 98.2 Weight Weight [ ] I.O. Intake and Output Intake and Output 06/30/18 06:59 Intake Total 1150 ml Output Total 350 ml Balance 800 ml Intake Oral 1150 ml Output Urine Total 350 ml # Voids 4 Labs Labs Laboratory Tests Test 06/30/18 04:45 Sodium Level 142 mmol/L (136-145) Potassium Level 3.9 mmol/L (3.5-5.1) Chloride Level 106 mmol/L (98-107) Carbon Dioxide Level 25 mmol/L (21-32) Anion Gap 11 (6-14) Blood Urea Nitrogen 22 mg/dL (8-26) Creatinine 2.2 mg/dL (0.7-1.3) Estimated GFR (Cockcroft-Gault) 37.0 Glucose Level 86 mg/dL (70-99) Calcium Level 8.5 mg/dL (8.5-10.1) Micro Micro Microbiology 06/25/18 Blood Culture - Preliminary, Resulted NO GROWTH AFTER 4 DAYS Review of Systems Constitutional: yes: alert, oriented Ears/Nose/Throat: Yes: no symptom reported Eyes: Yes: no symptom reported Pulmonary: Yes no symptom reported Cardiovascular: Yes no symptom reported Gastrointestional: Yes: no symptom reported Genitourinary: Yes: no symptom reported Musculoskeletal: Yes: joint swelling Psychiatric/Neurological: Yes: no symptom reported Endocrine: Yes: no symptom reported Hematologic/Lymphatic: Yes: no symptom reported Physical Exam Skin: warm Respiratory: bilateral CTA Heart: S1S2, RRR Abdomen: soft, bowel sounds present Genitourinary: bladder flat Neurology: alert, oriented Musculoskeletal: Other (KNEE PAIN) Assessment Assessment IMP RIGHT KNEE EFFUSION MICHELET-ATN DUE TO NSAID-CR STILL 2.2-NON OLIGURIC WITH NO HX OF ANY CKD PLAN HYDRATION WILL FOLLOW EXPECT FULL RENAL RECOVERY IN TIME COURTNEY MCKEE MD Jun 30, 2018 11:16
[2018-06-30] MEDS ORDERED: MORPHINE ER 15 MG TABLET.ER PO ONE (11:30)
--- NOTE | 2018-06-30 11:31 | PDOC ---
PROGRESS NOTES Chief Complaint Chief Complaint Right knee pain secondary to severe ostearthritis most likely Effusion which most likely is inflammatory in nature low suspicion for septic arthritis. History of essential hypertension. pain management, he denied morphine, he refused tylenol containing products reassess in the am History of Present Illness History of Present Illness difficult to give Q1 hour IV meds on floor, will keep at 75 mcg fentanyl, try to taper he would like to leave soon, try to control pain on PO oxy, he refused tylenol still having knee pain, cannot walk well weakness, lethargy renal fxn has stablized, Cr 2.2, discussed with Dr. Gadiel ASHTON following, taper abx on. Vitals Vitals Vital Signs Date Time Temp Pulse Resp B/P (MAP) Pulse Ox O2 Delivery O2 Flow Rate FiO2 06/30/18 11:00 98.2 69 17 155/78 (103) 97 Room Air 98.2 Physical Exam Physical Exam GENERAL: Alert and oriented gentleman, not in distress. VITAL SIGNS: Stable and afebrile. HEENT: NAD. NECK: Supple, no JVP, no lymphadenopathy. LUNGS: Clear. HEART: S1 and S2 regular. ABDOMEN: Benign. EXTREMITIES: No edema or cyanosis. SKIN: Unremarkable. In particular, right knee, it is not red, it is not swollen, there is no appreciable knee fluid. Clinically, there is no open wound. No other signs of infection. NEUROLOGICAL: The patient is alert, awake and appropriate. No focal neurologic deficit. General: Alert, Oriented X3, Cooperative, No acute distress Heart: Regular rate, Normal S1, Normal S2, No murmurs Lungs: Clear Abdomen: Normal bowel sounds, Soft Extremities: No clubbing, No cyanosis Skin: No breakdown Labs LABS Laboratory Tests Test 06/30/18 04:45 Sodium Level 142 mmol/L (136-145) Potassium Level 3.9 mmol/L (3.5-5.1) Chloride Level 106 mmol/L (98-107) Carbon Dioxide Level 25 mmol/L (21-32) Anion Gap 11 (6-14) Blood Urea Nitrogen 22 mg/dL (8-26) Creatinine 2.2 mg/dL (0.7-1.3) Estimated GFR (Cockcroft-Gault) 37.0 Glucose Level 86 mg/dL (70-99) Calcium Level 8.5 mg/dL (8.5-10.1) Comment Review of Relevant I have reviewed the following items jet (where applicable) has been applied. Labs Laboratory Tests Test 06/29/18 07:11 06/30/18 04:45 Sodium Level 144 mmol/L (136-145) 142 mmol/L (136-145) Potassium Level 4.0 mmol/L (3.5-5.1) 3.9 mmol/L (3.5-5.1) Chloride Level 110 mmol/L (98-107) 106 mmol/L (98-107) Carbon Dioxide Level 22 mmol/L (21-32) 25 mmol/L (21-32) Anion Gap 12 (6-14) 11 (6-14) Blood Urea Nitrogen 22 mg/dL (8-26) 22 mg/dL (8-26) Creatinine 2.2 mg/dL (0.7-1.3) 2.2 mg/dL (0.7-1.3) Estimated GFR (Cockcroft-Gault) 37.0 37.0 Glucose Level 93 mg/dL (70-99) 86 mg/dL (70-99) Calcium Level 8.6 mg/dL (8.5-10.1) 8.5 mg/dL (8.5-10.1) Laboratory Tests Test 06/30/18 04:45 Sodium Level 142 mmol/L (136-145) Potassium Level 3.9 mmol/L (3.5-5.1) Chloride Level 106 mmol/L (98-107) Carbon Dioxide Level 25 mmol/L (21-32) Anion Gap 11 (6-14) Blood Urea Nitrogen 22 mg/dL (8-26) Creatinine 2.2 mg/dL (0.7-1.3) Estimated GFR (Cockcroft-Gault) 37.0 Glucose Level 86 mg/dL (70-99) Calcium Level 8.5 mg/dL (8.5-10.1) Microbiology 06/25/18 Blood Culture - Preliminary, Resulted NO GROWTH AFTER 4 DAYS Medications Current Medications Fentanyl Citrate (Fentanyl 2ml Vial) 50 mcg 1X ONCE IV Last administered on 02/03at 13:55; Start 06/25/18 at 12:45; Stop 06/25/18 at 12:55; Status DC Vancomycin HCl 2 gm/Sodium Chloride 500 ml @ 250 mls/hr 1X ONCE IV Last administered on 06/25/18at 18:11; Start 06/25/18 at 15:30; Stop 06/25/18 at 17:29 ; Status DC Piperacillin Sod/ Tazobactam Sod 3.375 gm/Sodium Chloride 50 ml @ 100 mls/hr 1X ONCE IV Last administered on 06/25/18at 18:02; Start 06/25/18 at 15:30; Stop 06/25/18 at 15:59; Status DC Ondansetron HCl (Zofran) 4 mg PRN Q8HRS PRN IV NAUSEA/VOMITING; Start 06/25/18 at 16:15; Stop 06/26/18 at 16:14; Status DC Fentanyl Citrate (Fentanyl 2ml Vial) 50 mcg PRN Q2HR PRN IV PAIN Last administered on 06/26/18at 15:57; Start 06/25/18 at 16:15; Stop 06/26/18 at 16:14 ; Status DC Piperacillin Sod/ Tazobactam Sod 3.375 gm/Sodium Chloride 50 ml @ 100 mls/hr Q6HRS IV Last administered on 06/29/18at 12:48; Start 06/26/18 at 00:00; Stop at 13:47; Status DC Vancomycin HCl 2 gm/Sodium Chloride 500 ml @ 250 mls/hr Q24H IV ; Start at 19:00; Status UNV Vancomycin HCl (Vanco Per Pharmacy) 1 each PRN DAILY PRN MC SEE COMMENTS Last administered on 06/27/18at 06:37; Start 06/25/18 at 19:15; Stop 06/28/18 at 13:04 ; Status DC Vancomycin HCl 1.25 gm/Sodium Chloride 250 ml @ 167 mls/hr Q12H IV Last administered on 06/28/18at 06:26; Start 06/26/18 at 06:00; Stop 06/28/18 at 13:00 ; Status DC Vancomycin HCl (Vancomycin Trough Level) 1 each 1X ONCE MC Last administered on 06/27/18at 05:30; Start 06/27/18 at 05:30; Stop 06/27/18 at 05:31; Status DC Indomethacin (Indocin) 25 mg BIDWMEALS PO Last administered on 06/27/18at 08:10 ; Start 06/25/18 at 19:30; Stop 06/27/18 at 09:09; Status DC Temazepam (Restoril) 30 mg PRN QHS PRN PO INSOMNIA Last administered on 21:45; Start 06/25/18 at 19:15 Alprazolam (Xanax) 0.5 mg BID PO Last administered on 06/30/18 09:30; Start at 09:00 Cyclobenzaprine HCl (Flexeril) 5 mg PRN TID PRN PO MUSCLE SPASMS Last administered on 06/28/18 09:06; Start 06/26/18 at 07:45 Non-Formulary Medication ([Ipratropium/ Albuterol Sulfate] ) 3 ml RTQID NEB ; Start 06/26/18 at 08:00; Status UNV Albuterol/ Ipratropium (Duoneb) 3 ml RTQID NEB Last administered on 06/27/18 15:48; Start 06/26/18 at 08:00; Stop 06/28/18 at 09:15; Status DC Methylprednisolone Acetate (DEPO-Medrol 80MG VIAL) 80 mg 1X ONCE INJ Last administered on 06/27/18 07:00; Start 06/27/18 at 07:00; Stop 06/27/18 at 07:01 ; Status DC Lidocaine HCl (Lidocaine 1% 20ml Vial) 20 ml 1X ONCE INJ Last administered on 06/27/18 07:00; Start 06/27/18 at 07:00; Stop 06/27/18 at 07:01; Status DC Lactobacillus Rhamnosus (Culturelle) 1 cap BID PO Last administered on at 09:30; Start 06/26/18 at 21:00 Oxycodone/ Acetaminophen (Percocet 5/325) 1 tab PRN Q4HRS PRN PO MILD PAIN; Start 06/26/18 at 18:30 Oxycodone/ Acetaminophen (Percocet 10/325) 1 tab PRN Q4HRS PRN PO MODERATE- SEVERE PAIN Last administered on 06/27/18 17:36; Start 06/26/18 at 18:30 Fentanyl Citrate (Fentanyl 2ml Vial) 50 mcg PRN Q2HR PRN IV PAIN Last administered on 06/27/18 03:45; Start 06/26/18 at 18:30; Stop 06/27/18 at 09:09 ; Status DC Magnesium Hydroxide (Milk Of Magnesia) 2,400 mg PRN DAILY PRN PO CONSTIPATION; Start 06/26/18 at 18:30 Ketorolac Tromethamine (Toradol 30mg Vial) 30 mg PRN Q6HRS PRN IV PAIN MILD Last administered on 06/28/18at 02:49; Start 06/27/18 at 09:15; Stop 06/28/18 at 09:43; Status DC Albuterol Sulfate (Ventolin Neb Soln) 2.5 mg PRN Q4HRS PRN NEB SHORTNESS OF BREATH; Start 06/28/18 at 09:15 Fentanyl Citrate (Fentanyl 2ml Vial) 75 mcg 1X ONCE IV Last administered on at 10:00; Start 06/28/18 at 09:45; Stop 06/28/18 at 09:47; Status DC Fentanyl Citrate (Fentanyl 2ml Vial) 50 mcg PRN Q2HR PRN IV PAIN Last administered on 06/28/18at 15:55; Start 06/28/18 at 09:45; Stop 06/28/18 at 20:03 ; Status DC Sodium Chloride 1,000 ml @ 100 mls/hr Q10H IV Last administered on 06/29/18at 12:48; Start 06/28/18 at 16:00; Stop 06/30/18 at 07:14; Status DC Acetaminophen/ Butalbital/ Caffeine (Fioricet) 1 tab PRN Q6HRS PRN PO MIGRAINE HEADACHE; Start 06/28/18 at 19:00 Sumatriptan Succinate (Imitrex) 50 mg PRN Q8HRS PRN PO MIGRAINE HEADACHE Last administered on 06/30/18at 05:58; Start 06/28/18 at 19:00 Fentanyl Citrate (Fentanyl 2ml Vial) 75 mcg PRN Q2HR PRN IV PAIN Last administered on 06/30/18at 09:31; Start 06/28/18 at 20:15 Active Scripts Active [place] 5-325 Tablet (Acetaminophen/Hydrocodone Bitart) 1 Each Tablet 1 Tab PO PRN Q6HRS PRN Cyclobenzaprine Hcl 5 Mg Tablet 1 Tab PO TID PRN [Ipratropium/Albuterol Sulfate] 3 ML Nebu 3 Ml NEB RTQID Reported Xanax (Alprazolam) 0.5 Mg Tablet 1 Tab PO BID Vitals/I & O Vital Sign - Last 24 Hours 06/29/18 06/29/18 06/29/18 06/29/18 12:47 15:15 15:37 17:41 Temp 98.6 98.6 Pulse 69 Resp 20 B/P (MAP) 129/71 (90) Pulse Ox 97 97 97 97 O2 Delivery Room Air Room Air Room Air 06/29/18 06/29/18 06/29/18 06/29/18 19:57 20:00 20:06 23:43 Temp 98.7 98.4 98.7 98.4 Pulse 75 73 Resp 20 16 B/P (MAP) 151/72 (98) 137/69 (91) Pulse Ox 97 94 O2 Delivery Room Air Room Air Room Air Room Air 06/30/18 06/30/18 06/30/18 06/30/18 02:23 03:50 05:59 06:29 Temp 98.9 98.9 Pulse 74 Resp 16 B/P (MAP) 137/78 (97) Pulse Ox 94 O2 Delivery Room Air Room Air Room Air Room Air 06/30/18 06/30/18 06/30/18 06/30/18 07:00 08:00 09:31 11:00 Temp 98.4 98.2 98.4 98.2 Pulse 67 69 Resp 16 18 17 B/P (MAP) 153/74 (100) 155/78 (103) Pulse Ox 96 96 97 O2 Delivery Room Air Room Air Room Air Room Air Intake and Output 06/29/18 06/29/18 06/30/18 15:00 23:00 07:00 Intake Total 480 ml 360 ml 310 ml Output Total 350 ml Balance 480 ml 360 ml -40 ml JASMYNE CAICEDO MD Jun 30, 2018 11:31
[2018-06-30] MEDS: oxyCODONE IR 5 MG TABLET PO PRN ×2 (13:03→19:43)
[2018-06-30] MEDS: IV NORMAL SALINE 1000ML BAG 1,000 ML IV SCH ×2 (13:05→22:00)
[2018-06-30 15:00] VITALS: BP 150/83
[2018-06-30 19:51] VITALS: BP 149/75
[2018-06-30 23:23] VITALS: BP 170/86
[2018-07-01] MEDS: oxyCODONE IR 5 MG TABLET PO PRN ×3 (01:56→16:27)
[2018-07-01] MEDS: fentaNYL PF VIAL 100 MCG/2 ML VIAL IV PRN ×4 (01:57→13:36)
[2018-07-01 03:19] VITALS: BP 144/77
[2018-07-01 06:06] LABS: CALCIUM 8.2 mg/dL (8.5-10.1); CREATININE 1.8 mg/dL (0.7-1.3); GFR 46.6; POTASSIUM 3.6 mmol/L (3.5-5.1)
[2018-07-01 07:00] VITALS: BP 139/65
[2018-07-01] MEDS: ALPRAZolam 0.5 MG TABLET PO SCH (09:02)
[2018-07-01] MEDS: LACTOBACILLUS RHAMNOSUS GG 1 CAPSULE. PO SCH (09:02)
[2018-07-01] MEDS: IV NORMAL SALINE 1000ML BAG 1,000 ML IV SCH (09:02)
[2018-07-01 11:00] VITALS: BP 123/64
--- NOTE | 2018-07-01 11:39 | PDOC ---
Renal-Progress Notes Subjective Notes Notes BETTER History of Present Illness Hx of present illness STABLE Vitals Vitals Vital Signs Date Time Temp Pulse Resp B/P (MAP) Pulse Ox O2 Delivery O2 Flow Rate FiO2 07/01/18 09:22 18 96 Room Air 07/01/18 07:00 97.8 68 139/65 (89) 97.8 Weight Weight [ ] I.O. Intake and Output Intake and Output 07/01/18 07:00 Intake Total 1780 ml Output Total 1100 ml Balance 680 ml Intake Oral 1780 ml Output Urine Total 1100 ml # Voids 3 Labs Labs Laboratory Tests Test 07/01/18 04:55 Sodium Level 140 mmol/L (136-145) Potassium Level 3.6 mmol/L (3.5-5.1) Chloride Level 105 mmol/L (98-107) Carbon Dioxide Level 25 mmol/L (21-32) Anion Gap 10 (6-14) Blood Urea Nitrogen 17 mg/dL (8-26) Creatinine 1.8 mg/dL (0.7-1.3) Estimated GFR (Cockcroft-Gault) 46.6 Glucose Level 121 mg/dL (70-99) Calcium Level 8.2 mg/dL (8.5-10.1) Micro Micro Microbiology 06/25/18 Blood Culture - Final, Complete NO GROWTH AFTER 5 DAYS Review of Systems Constitutional: yes: alert, oriented Ears/Nose/Throat: Yes: no symptom reported Eyes: Yes: no symptom reported Pulmonary: Yes no symptom reported Cardiovascular: Yes no symptom reported Gastrointestional: Yes: no symptom reported Genitourinary: Yes: no symptom reported Musculoskeletal: Yes: joint swelling Psychiatric/Neurological: Yes: no symptom reported Endocrine: Yes: no symptom reported Hematologic/Lymphatic: Yes: no symptom reported Physical Exam Skin: warm Respiratory: bilateral CTA Heart: S1S2, RRR Abdomen: soft, bowel sounds present Genitourinary: bladder flat Neurology: alert, oriented Musculoskeletal: Other (KNEE PAIN) Assessment Assessment IMP RIGHT KNEE EFFUSION MICHELET-ATN DUE TO NSAID-CR IMPROVED TO 1.8 AND NON OLIGURIC PLAN HYDRATION EXPECT FULL RENAL RECOVERY IN TIME OK TO D/C FROM RENAL STANDPOINT COURTNEY MCKEE MD Jul 01, 2018 11:39
[2018-07-01] MEDS ORDERED: OXYC5CAP PO (13:31)
[2018-07-01] MEDS ORDERED: CYCL5TAB PO (13:31)
[2018-07-01] MEDS ORDERED: SUMA50TA3 PO (13:31)
--- NOTE | 2018-07-01 13:35 | SNU/HH DC ---
DISCHARGE WITH HOME HEALTH DISCHARGE INFORMATION: Discharge Date: Jul 01, 2018 Condition on Discharge: Stable CODE STATUS: Code Status: Full HOME HEALTH: Face to Face: I certify this patient is under my care and that I, or a nurse practitioner or physician's orthodontist assistant working with me, had a face to face encounter that meets the physician face to face encounter requirements with this patient on 07/01 Medical Complications: Falls (knee pain, poorly ambulatory, ), Other Physical Therapy For: Evalulation/Treatment (knee pain) POST DISCHARGE ORDERS: Activity Instructions for Disc: Activity as tolerated Weight Bearing Status after Di: Full weight bearing Wound/Incision Care: Ice to area for comfort FOLLOW-UP: Follow up with: primary care 10 days TREATMENT/EQUIPMENT ORDERS: Adaptive Equipment Issued: Brace/splint, Front wheeled walker CERTIFICATION STATEMENT: Certification Statement: Certification Statement: Based on the above finding, I certify that this patient is confined to the home and needs intermittent assisted care, physical therapy and/or speech therapy, or continues to need occupational therapy.~ This patient is under my care, and I have initiated the establishment of the plan of care.~ This patient will be followed by myself or a community physician who will periodically review the plan of care. Home Meds Active Scripts Sumatriptan Succinate (IMITREX) 50 Mg Tablet, 1 TAB PO UD PRN for HEADACHE, #9 TAB 1 Refill Prov:JASMYNE CAICEDO MD 07/01/18 Oxycodone Hcl (OXYCODONE HCL) 5 Mg Capsule, 5 MG PO PRN Q6HRS PRN for PAIN, #42 TAB 0 Refills Prov:JASMYNE CAICEDO MD 07/01/18 Cyclobenzaprine Hcl (CYCLOBENZAPRINE HCL) 5 Mg Tablet, 1 TAB PO TID PRN for MUSCLE SPASMS, #15 TAB Prov:JASMYNE CAICEDO MD 07/01/18 [Ipratropium/Albuterol Sulfate] 3 ML NEBU No Conflict Check, 3 ML NEB RTQID, # 120 2 Refills Prov:DAVID MENDEZ MD 10/28/14 Reported Medications Alprazolam (XANAX) 0.5 Mg Tablet, 1 TAB PO BID, #60 TAB 04/26/17 Discontinued Reported Medications Dicyclomine Hcl (DICYCLOMINE HCL) 20 Mg Tablet, 20 MG PO TID 08/14/13 Discontinued Scripts Hydrocodone/[place] 5-325 ([place] 5-325 TABLET) 1 Each Tablet, 1 TAB PO PRN Q6HRS PRN for PAIN, #20 TAB Prov:DEE DE GUZMAN MD 07/14/16 JASMYNE CAICEDO MD Jul 01, 2018 13:35
--- NOTE | 2018-07-01 13:49 | PDOC3 ---
Discharge Summary Visit Information Date of Admission: Jun 25, 2018 Date of Discharge: Jul 01, 2018 Final Diagnosis Right knee pain secondary to severe ostearthritis most likely Effusion which most likely is inflammatory in nature low suspicion for septic arthritis. History of essential hypertension. pain management, he denied morphine, he refused tylenol containing products reassess in the am Brief Hospital Course Allergies Allergies Coded Allergies Type Severity Reaction Last Updated Verified aspirin Allergy Intermediate "stomach spasms" 04/26/17 Yes budesonide Allergy Intermediate 04/26/17 Yes mesalamine Allergy Intermediate 04/22/17 Yes acetaminophen Adverse Reaction Mild stomachache 04/26/17 Yes oxycodone Adverse Reaction Mild stomachache 04/26/17 Yes zolpidem Adverse Reaction Mild sleep walking 04/26/17 Yes Vital Signs Vital Signs Date Time Temp Pulse Resp B/P (MAP) Pulse Ox O2 Delivery O2 Flow Rate FiO2 07/01/18 11:00 98.2 68 20 123/64 (83) 97 Room Air 98.2 Lab Results Laboratory Tests Test 06/30/18 04:45 07/01/18 04:55 Sodium Level 142 mmol/L (136-145) 140 mmol/L (136-145) Potassium Level 3.9 mmol/L (3.5-5.1) 3.6 mmol/L (3.5-5.1) Chloride Level 106 mmol/L (98-107) 105 mmol/L (98-107) Carbon Dioxide Level 25 mmol/L (21-32) 25 mmol/L (21-32) Anion Gap 11 (6-14) 10 (6-14) Blood Urea Nitrogen 22 mg/dL (8-26) 17 mg/dL (8-26) Creatinine 2.2 mg/dL (0.7-1.3) 1.8 mg/dL (0.7-1.3) Estimated GFR (Cockcroft-Gault) 37.0 46.6 Glucose Level 86 mg/dL (70-99) 121 mg/dL (70-99) Calcium Level 8.5 mg/dL (8.5-10.1) 8.2 mg/dL (8.5-10.1) Laboratory Tests Test 07/01/18 04:55 Sodium Level 140 mmol/L (136-145) Potassium Level 3.6 mmol/L (3.5-5.1) Chloride Level 105 mmol/L (98-107) Carbon Dioxide Level 25 mmol/L (21-32) Anion Gap 10 (6-14) Blood Urea Nitrogen 17 mg/dL (8-26) Creatinine 1.8 mg/dL (0.7-1.3) Estimated GFR (Cockcroft-Gault) 46.6 Glucose Level 121 mg/dL (70-99) Calcium Level 8.2 mg/dL (8.5-10.1) Brief Hospital Course Mr. Sheriff is a 62 old admit with knee pain, OA, thought to be infection at first, but tap neg, ID consult, Abx tapered Ortho following, injected cortisone pain persisted then patient had acute renal failure, creatine to 2.2, ATN from Vanco and Toradol for pain, weakness, poor ambulatory DC on oxy, he reports he cannot tolerate tylenol Discharge Information Condition at Discharge: Improved Follow Up: Weeks Disposition/Orders: D/C to Home w/ HH Scheduled Alprazolam (Xanax) 0.5 Mg Tablet, 1 TAB PO BID, #60 (Reported) Entered as Reported by: Kaylie Pollard on 04/26/17 0713 Last Action: Continued on 06/26/18 0656 by Amanda Rae RN [Ipratropium/Albuterol Sulfate] 3 ML NEBU, 3 ML NEB RTQID, #120 Ref 2 Prescribed by: DAVID MENDEZ on 10/28/14 1033 Last Action: Converted on 06/26/18 0736 by ADITHYA HUNTER MD Scheduled PRN Cyclobenzaprine Hcl (Cyclobenzaprine Hcl) 5 Mg Tablet, 1 TAB PO TID PRN for MUSCLE SPASMS, #15 Prescribed by: JASMYNE CAICEDO on 07/01/18 1331 Oxycodone Hcl (Oxycodone Hcl) 5 Mg Capsule, 5 MG PO PRN Q6HRS PRN for PAIN, #42 Ref 0 Prescribed by: JASMYNE CAICEDO on 07/01/18 1331 Sumatriptan Succinate (Imitrex) 50 Mg Tablet, 1 TAB PO UD PRN for HEADACHE, #9 Ref 1 Prescribed by: JASMYNE CAICEDO on 07/01/18 1331 Discontinued Medications Dicyclomine Hcl (Dicyclomine Hcl) 20 Mg Tablet, 20 MG PO TID, (Reported) Entered as Reported by: JAKY BECERRA on 08/14/132117 Last Action: Discontinued on 06/25/181910 by ALAN SANTANA RN Hydrocodone/Apap 5-325 ([place] 5-325 Tablet) 1 Each Tablet, 1 TAB PO PRN Q6HRS PRN for PAIN, #20 Prescribed by: DEE DE GUZMAN MD on 07/14/161801 Last Action: HELD on 06/26/18 0736 by ADITHYA HUNTER MD Patient Instructions Patient Instructions > 30 min face to face JASMYNE CAICEDO MD Jul 01, 2018 13:49
[2018-07-01 15:00] VITALS: BP 142/69
--- NOTE | 2018-07-01 19:25 | NUR ---
Discharge Note: IRAIDA GRADY Discharge instructions and discharge home medications reviewed with patient and a copy given. All questions have been answered and understanding verbalized. The following instructions and handouts were given: Prescriptions for oxycodone, flexeril, imitrex Arthritis, gen info, easy to read FF up with Dr. Solis at clinic in 2 to 4 weeks Ff up with PCP in a week Discontinued lines and drains: peripheral IV catheter intact, patient tolerated removal, no complications noted. Patient discharged to home with home health via wheelchair, cab service at 1850.
== END 2018-07-01 18:50 | disposition home health service (06) | DRG 553 ==
LOC: ER 12:21 → 6 SOUTH 15:15
PROVIDERS: ADMIT Internal Medicine; ATTEND Internal Medicine
PROC: 0S9C3ZZ Drainage of Right Knee Joint, Percutaneous Approach (ICD-10-PCS; principal; 2018-06-30)
PROC: 3E0U33Z Introduction of Anti-inflammatory into Joints, Percutaneous Approach (ICD-10-PCS; 2018-06-30)
PROC: 3E0U3BZ Introduction of Anesthetic Agent into Joints, Percutaneous Approach (ICD-10-PCS; 2018-06-30)
DX: M17.11 Unilateral primary osteoarthritis, right knee (principal); N17.0 Acute kidney failure with tubular necrosis; L03.115 Cellulitis of right lower limb; M25.461 Effusion, right knee; I10 Essential (primary) hypertension; T39.395A Adverse effect of other nonsteroidal anti-inflammatory drugs [NSAID], initial encounter; G89.29 Other chronic pain; J44.9 Chronic obstructive pulmonary disease, unspecified; F32.9 Major depressive disorder, single episode, unspecified; F41.9 Anxiety disorder, unspecified; K57.90 Diverticulosis of intestine, part unspecified, without perforation or abscess without bleeding; M54.5 Low back pain; Z96.649 Presence of unspecified artificial hip joint; Z82.49 Family history of ischemic heart disease and other diseases of the circulatory system; Z85.46 Personal history of malignant neoplasm of prostate; Z83.3 Family history of diabetes mellitus; Y92.89 Other specified places as the place of occurrence of the external cause; Z88.8 Allergy status to other drugs, medicaments and biological substances; Z79.899 Other long term (current) drug therapy
CPT/HCPCS: 36415; 73562; 80048; 80053; 80202; 82565; 83605; 83735; 84145; 84520; 85025; 87040; 93971; 94640; 94760; 96374; J1040; J1885; J2543; J3010; J3370; J7030; J7040; J7050; J7620; 97116; 97535; 99285-25

== ENCOUNTER 2018-08-07 11:55 | Emergency (ER) | payer MEDICARE ==
[~2018-08-07] VITALS: Ht 188 cm; Wt 90.7 kg
[~2018-08-07 11:55] MED LIST changes: +OXYC5CAP PO; +SUMA50TA3 PO
--- NOTE | 2018-08-07 12:31 | PHYS DOC ---
Past Medical History Past Medical History: Anxiety, Other Additional Past Medical Histor: chronic back/neck/KNEE pain Past Surgical History: Hip Replacement, Other Additional Past Surgical Histo: ortho back/neck Additional Information: 0.25 PPD Alcohol Use: Occasionally Drug Use: None Adult General Chief Complaint Chief Complaint: KNEE INJURY HPI HPI Patient is a 62 year old male with a history of right knee injury 1 year ago presents to ED complaining of right knee pain 2 days. He has a history of chronic pain to the knee. Patient suffered an injury one year ago in November. States that he was admitted in June 2018 and evaluated for a septic joint. Reviewed previous admission and patient had a negative workup for a septic joint. Patient was found to have severe arthritis and knee effusion. Patient received a cortisone injection and antibiotics were tapered. Patient states he started back to work yesterday and had increase in pain. States he wants to have his knee evaluated to see if there is any further injury. Patient has not follow-up with orthopedics after discharge. Denies fever, nausea/vomiting, calf pain/swelling, chest pain, shortness of breath, paresthesias, dizziness or weakness. Review of Systems Review of Systems Constitutional: Denies fever or chills [] Eyes: Denies change in visual acuity, redness, or eye pain [] HENT: Denies nasal congestion or sore throat [] Respiratory: Denies cough or shortness of breath [] Cardiovascular: No additional information not addressed in HPI [] GI: Denies abdominal pain, nausea, vomiting, bloody stools or diarrhea [] : Denies dysuria or hematuria [] Musculoskeletal: Complains of right knee pain. [] Integument: Denies rash or skin lesions [] Neurologic: Denies headache, focal weakness or sensory changes [] All other systems were reviewed and found to be within normal limits, except as documented in this note. Allergies Allergies Allergies Coded Allergies Type Severity Reaction Last Updated Verified aspirin Allergy Intermediate "stomach spasms" 04/26/17 Yes budesonide Allergy Intermediate 04/26/17 Yes mesalamine Allergy Intermediate 04/22/17 Yes acetaminophen Adverse Reaction Mild stomachache 04/26/17 Yes oxycodone Adverse Reaction Mild stomachache 04/26/17 Yes zolpidem Adverse Reaction Mild sleep walking 04/26/17 Yes Physical Exam Physical Exam Constitutional: Well developed, well nourished, no acute distress, non-toxic appearance. [] HENT: Normocephalic, atraumatic Skin: Warm, dry, no erythema, no rash. [] Back: No tenderness, no CVA tenderness. [] Extremities: mild right anterior knee swelling/tenderness. FROM. NV intact. No overlying skin changes, erythema, drainage or warmth. no cyanosis, no clubbing, ROM intact, no edema. [] Neurologic: Alert and oriented X 3, normal motor function, normal sensory function, no focal deficits noted. [] Psychologic: Affect normal, judgement normal, mood normal. [] Current Patient Data Vital Signs Vital Signs Date Time Temp Pulse Resp B/P (MAP) Pulse Ox O2 Delivery O2 Flow Rate FiO2 08/07/18 13:28 91 16 134/90 (105) 99 Room Air 08/07/18 12:00 97.7 97.7 EKG EKG [] Radiology/Procedures Radiology/Procedures []PROCEDURE: KNEE RIGHT 3V 3 view study of the right knee Clinical indications: Chronic right knee pain and swelling. No recent injury. FINDINGS: No lytic process is evident. There is moderate joint space narrowing and mild spurring of the medial tibial femoral joint compartment. There is sclerosis and lucency of the subchondral portion of the medial femoral condyle consistent with an insufficiency fracture and/or avascular necrosis. 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 This was seen previously on a study dated June 25, 2018 and is otherwise unchanged. Mild to moderate primary degenerative osteoarthritis of the medial tibiofemoral joint compartment. Course & Med Decision Making Course & Med Decision Making Pertinent Labs and Imaging studies reviewed. (See chart for details) Discussed imaging findings with patient. Patient's pain improved in the ED. Patient able to ambulate with cane per his normal. Patient has chronic pain medication at home. Discussed follow-up with orthopedics this week. Provided contact information/education. Discussed reasons to return to the ED. Patient understands and agrees with the plan. Dragon Disclaimer Dragon Disclaimer This electronic medical record was generated, in whole or in part, using a voice recognition dictation system. Departure Departure Impression: Primary Impression: Chronic knee pain Disposition: HOME, SELF-CARE Condition: IMPROVED Referrals: MAXIMILIANO HUERTA MD (PCP) PETER VERDUGO II, MD Patient Instructions: Knee Pain LO HOLM Aug 07, 2018 12:31
--- NOTE | 2018-08-07 13:03 | RAD ---
3 view study of the right knee Clinical indications: Chronic right knee pain and swelling. No recent injury. FINDINGS: No lytic process is evident. There is moderate joint space narrowing and mild spurring of the medial tibial femoral joint compartment. There is sclerosis and lucency of the subchondral portion of the medial femoral condyle consistent with an insufficiency fracture and/or avascular necrosis. 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 This was seen previously on a study dated June 25, 2018 and is otherwise unchanged. Mild to moderate primary degenerative osteoarthritis of the medial tibiofemoral joint compartment. Electronically signed by: Dariel Quintana MD (08/07/2018 1:00 PM) [email or web address]
[2018-08-07 13:28] VITALS: BP 134/90
== END 2018-08-07 13:28 | disposition home or self-care (01) ==
LOC: ER 11:55
DX: G89.29 Other chronic pain (principal); M25.561 Pain in right knee; F17.200 Nicotine dependence, unspecified, uncomplicated; Z88.6 Allergy status to analgesic agent; Z88.5 Allergy status to narcotic agent; Z88.8 Allergy status to other drugs, medicaments and biological substances
CPT/HCPCS: 73562; 99284

== ENCOUNTER → 2019-02-19 | Day surgery (SDC) | payer MEDICARE ==
[~2019-02-19] MED LIST changes: +DICY10CA3 PO; +HYDR-2769 PO; +INDO25CA21 PO; +IV RINGERS,LACTATED 1000ML 1,000 ML IV ONE; +MONT10TA49 PO; -MONT10TA6 PO; +PREG75CA PO; +PROPOFOL 20 ML IV ONE; +TIZA4TAB2 PO
--- NOTE | 2019-02-19 14:04 | PDOC4 ---
PROCEDURE Procedure Colonoscopy Indication: positive FIT Meds: per anesthesia. Findings: ELFEGO--normal. --colonoscope advanced to ileocolostomy. Mucosa normal. Prep good. Occasional diverticula, sigmoid. Small internal hemorrhoids on retroflex. Karla. well. IMP: Diverticulosis. IH's S/p right colectomy. REC: Reassure. Resume home meds, diet. F/u with me prn. Repeat exam in 10 years. MAXIMILIANO HOANG MD Feb 19, 2019 14:04
[2019-02-19 14:18] VITALS: BP 165/78
== END ==
LOC: ENDOS 12:37
PROVIDERS: ATTEND Internal Medicine Gastroenterology
DX: R19.5 Other fecal abnormalities (principal); K57.30 Diverticulosis of large intestine without perforation or abscess without bleeding; K64.0 First degree hemorrhoids; J44.9 Chronic obstructive pulmonary disease, unspecified; F32.9 Major depressive disorder, single episode, unspecified; Z86.010 Personal history of colon polyps; F41.9 Anxiety disorder, unspecified; K50.90 Crohn's disease, unspecified, without complications; K29.70 Gastritis, unspecified, without bleeding; K21.9 Gastro-esophageal reflux disease without esophagitis; M79.7 Fibromyalgia; Z96.60 Presence of unspecified orthopedic joint implant; Z98.890 Other specified postprocedural states; Z87.891 Personal history of nicotine dependence; Z90.49 Acquired absence of other specified parts of digestive tract; Z96.641 Presence of right artificial hip joint; Z98.0 Intestinal bypass and anastomosis status
CPT/HCPCS: 45378; J2704

== ENCOUNTER 2020-04-29 12:49 | Emergency (ER) | payer MEDICARE ==
[~2020-04-29] VITALS: Ht 188 cm; Wt 86.0 kg
[~2020-04-29 12:49] MED LIST changes: -IV RINGERS,LACTATED 1000ML 1,000 ML IV ONE; +PREG-9 PO; -PREG75CA PO; -PROPOFOL 20 ML IV ONE; +TRAZ-123 PO; -TRAZ-86 PO
--- NOTE | 2020-04-29 14:21 | RAD ---
Examination: CT lumbar spine without contrast HISTORY: History of back pain after fall COMPARISON: 07/12/2016 TECHNIQUE: Axial CT images of the lumbar spine without contrast. Coronal and sagittal reformats are p erformed Exposure: One or more of the following individualized dose reduction techniques were utilized for thi s examination: 1. Automated exposure control 2. Adjustment of the mA and/or kV according to patient size 3. Use of iterative reconstruction technique FINDINGS: There is cortical step-off identified in the anterior portion of the vertebral body of L1 likely acut e fracture. There is moderate compression changes of L2, L3 vertebral body with kyphoplasty changes s imilar to prior exam. There is mild compression changes of L4, L5 vertebral body similar to prior exa m. The bilateral facets are well aligned. Moderate bilateral facet degenerative changes. Moderate dis c bulges identified throughout the lumbar spine with moderate bilateral neural foraminal narrowing th roughout. Bony fusion bilateral SI joints. IMPRESSION: 1. Cortical step-off identified in the anterior portion of the vertebral body of L1 likely acute fra cture. 2. Moderate compression changes of L2, L3 vertebral body with kyphoplasty changes similar to prior e xam. 3. Moderate degenerative changes lumbar spine with moderate bilateral neural foraminal narrowing thr oughout. Electronically signed by: Kenneth Salgado MD (04/29/2020 2:19 PM) [id number]
[2020-04-29] MEDS ORDERED: ORPHENADRINE CITRATE 60 MG/2 ML VIAL. IM ONE (14:30)
[2020-04-29] MEDS ORDERED: HYDR-2761 PO (14:42)
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
[2020-04-29 14:48] VITALS: BP 166/85
== END 2020-04-29 14:48 | disposition home or self-care (01) ==
LOC: ER 12:49
DX: S32.018A Other fracture of first lumbar vertebra, initial encounter for closed fracture (principal); M54.41 Lumbago with sciatica, right side; G89.29 Other chronic pain; F41.9 Anxiety disorder, unspecified; F17.210 Nicotine dependence, cigarettes, uncomplicated; Z90.89 Acquired absence of other organs; Z88.5 Allergy status to narcotic agent; Z88.6 Allergy status to analgesic agent; Z90.49 Acquired absence of other specified parts of digestive tract; Z88.8 Allergy status to other drugs, medicaments and biological substances; Z98.890 Other specified postprocedural states; W01.0XXA Fall on same level from slipping, tripping and stumbling without subsequent striking against object, initial encounter; Y93.89 Activity, other specified; Y92.89 Other specified places as the place of occurrence of the external cause; Y99.8 Other external cause status
CPT/HCPCS: 72131; 99284

== ENCOUNTER 2020-07-05 03:48 | Emergency (ER) | payer MEDICARE ==
[~2020-07-05] VITALS: Ht 188 cm; Wt 86.4 kg
[~2020-07-05 03:48] MED LIST changes: +HYDR-2761 PO
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
[2020-07-05 04:31] LABS: BILIRUBIN,URINE NEGATIVE (NEG); CLARITY,URINE CLEAR; COLOR,URINE YELLOW; NITRITE,URINE NEGATIVE (NEG); PH,URINE 5.5 (<5.0-8.0); PROTEIN,URINE NEGATIVE (NEG-TRACE); UROBILINOGEN,URINE 0.2 mg/dL (0.2 mg/dL)
[2020-07-05 04:38] LABS: BACTERIA,URINE 0 /HPF (0-FEW); RBC,URINE 0 /HPF (0-2); WBC,URINE RARE /HPF (0-4)
--- NOTE | 2020-07-05 04:58 | RAD ---
Right knee 3 views: Reason for examination: Knee pain. Comparison is made to previous study dated 06/25/2018. No acute fracture or dislocation is seen. The bone density is normal. No abnormal periosteal reaction is seen. There is however severe degenerative change with severe narrowing of the medial joint kun rtment. No joint effusion is present. Note is made however of a calcific density in the soft tissues adjacent to the distal femur which is new since previous exam. IMPRESSION: Severe degenerative changes at the right knee with severe narrowing of the medial joint compartment. New 1.4 x 0.4 cm calcific density in the soft tissues medial to the distal femur. Electronically signed by: Maura Huang MD (07/05/2020 4:55 AM) KIKO
--- NOTE | 2020-07-05 05:04 | RAD ---
Right Lower Extremity Venous Doppler: Reason for examination: Right lower extremity swelling. The right lower extremity venous system was evaluated from the common femoral and greater saphenous v eins distally to the calf veins with matias scale imaging, color flow imaging and spectral analysis. There is normal blood flow without deep venous thrombosis. There is normal response of the venous sys tem to compression and augmentation. Impression: No deep venous thrombosis in the right lower extremity venous system. Electronically signed by: Maura Huang MD (07/05/2020 5:02 AM) KIKO
[2020-07-05] MEDS ORDERED: IBUPROFEN 200 MG TABLET. PO ONE (05:30)
[2020-07-05] MEDS ORDERED: DEXAMETHASONE 4 MG TABLET PO ONE (05:30)
[2020-07-05] MEDS ORDERED: METH4TAB2 PO (05:34)
[2020-07-05 05:49] VITALS: BP 124/59
[2020-07-05] MEDS ORDERED: DEXAMETHASONE 4 MG TABLET PO SCH (08:00)
== END 2020-07-05 06:00 | disposition home or self-care (01) ==
LOC: ER 03:48
DX: G89.29 Other chronic pain (principal); M25.561 Pain in right knee; R22.41 Localized swelling, mass and lump, right lower limb; F17.200 Nicotine dependence, unspecified, uncomplicated; Z90.49 Acquired absence of other specified parts of digestive tract; Z90.89 Acquired absence of other organs; Z88.6 Allergy status to analgesic agent; Z88.5 Allergy status to narcotic agent; Z88.8 Allergy status to other drugs, medicaments and biological substances
CPT/HCPCS: 73562; 81001; 93971; 99285-25